=== PATIENT | female | born 1965 | race Caucasian/White ===

== ENCOUNTER 2023-03-12 07:47 | Outpatient (OUT) | payer OTHER, SELFPAY ==
--- NOTE | 2023-03-12 08:06 | XR_ITS ---
The [address] [address] Patient Name: AMERICA PIKE MRN: [id number] date: 1965 Sex: F Assigned Patient Location: RAD Current Patient Location: [facility] Accession/Order Number: [id number] Exam Date: 03/12/2023 08:15 Report Date: 03/12/2023 08:40 At the request of: NON-STAFF PHYSICIAN Procedure: XR DEXA axial skeleton EXAMINATION: XR DEXA axial skeleton HISTORY: Post Menopausal Z78.0 COMPARISON: No relevant comparison available. TECHNIQUE: Dual-energy X-ray absorptiometry (DXA) was performed. FINDINGS: SPINE ANALYSIS: Average bone mineral density is 0.915 g/cm2. T-score (standard deviation relative to young adult mean): -2.2 . HIP ANALYSIS: Lowest bone mineral density is within the left femoral neck, 0.735 g/cm2. T-score (standard deviation relative to young adult mean): -2.2 . XR/XR DEXA axial skeleton IMPRESSION: [employer] Classification: Osteopenia - Moderate Fracture Risk Electronically authenticated by: ISAI HUSSEIN Date: 03/12/2023 08:40
--- OUTSIDE RECORDS SUMMARY | 2023-04-17 17:37 | XMS_ITS | CCD ---
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 Name Role Phone UNKNOWN, PROVIDER Attending Unavailable UNKNOWN, PROVIDER Admitting Unavailable HOUSE, DRE Referring Unavailable HOUSE, DRE Primary Care Unavailable UNKNOWN, PROVIDER Attending Unavailable UNKNOWN, PROVIDER Admitting Unavailable SELF, REFERRED Referring Unavailable SELF, REFERRED Primary Care Unavailable House Sr., Dre Fernandes Primary Care Provider MOUKARBEL, DR HAIR Attending Unavailable HOUSE, DR ERICKSON Primary Care Unavailable MOUKARBEL, DR HAIR Admitting Unavailable HOUSE, DR ERICKSON Admitting Unavailable HOUSE, DR ERICKSON Primary Care Unavailable HOUSE, DR ERICKSON Consulting Unavailable HOUSE, DR ERICKSON Attending Unavailable MOUKARBEL, DR HAIR Attending Unavailable HOUSE, DR ERICKSON Primary Care Unavailable MOUKARBEL, DR HAIR Admitting Unavailable HOUSE, DR ERICKSON Primary Care Unavailable MOUKARBEL, DR HAIR Admitting Unavailable MOUKARBEL, DR HAIR Attending Unavailable House, DO Erickson Primary Care Provider House, DO Erickson Referring Provider Self, Referral Attending Provider Unavailable House, Dre Referring Unavailable House, Dre Primary Care Unavailable Self, Referral Attending Unavailable Self, Referral Admitting Unavailable TRAMAINEJOSE Abernathy Attending Unavailable Allergies Allergy Classification Reported Allergen(s) Allergy Type Date of Onset Reaction(s) Facility (1 source) Iodine (And Iodine Containting Drugs) Drug allergy (disorder) 12-08-2020 [facility] Repository (1 source) Iodine Drug Allergy 08-04-2019 Anaphylaxis [facility] (1 source) Iodine Drug Allergy [facility] Repository Medications Current Medications Medication Drug Class(es) Dates Sig (Normalized) Sig (Original) iv contrast (will be provided with radiology test) (1 source) Start: 09-07-2021 End: 09-08-2021 inject 1 dose intravenously once iv contrast (will be provided with radiology test) MRI Brain Inject, intravenously, once for 1 dose.No IV access, insert saline lock prior to beginning of sedation, infusion, injection of imaging exam.Discontinue saline lock post exam. If Pt. has a central line or IVAD, may access for administration according to line specific nursing protocol.Once exam is complete flush line and de-access according to line specific nursing protocol in the MR contrast administration guidelines link 1 Each 0 09/07/2021 09/08/2021 Active Comment on above: MRI Brain Inject, in travenously, once for 1 dose.No IV access, insert saline lock prior to beginning of sedation, infusion, injection of imaging exam.Discontinue saline lock post exam. If Pt. has a central line or IVAD, may access for administration according to line specific nursing protocol.Once exam is complete flush line and de-access according to line specific nursing protocol in the MR contrast administration guidelines link Completed/Discontinued Medications Medication Drug Class(es) Dates Sig (Normalized) Sig (Original) diclofenac sodium 75 mg delayed release oral tablet (1 source) Nonsteroidal Anti-inflammatory Drug Start: 01-23-2020 take 1 tablet by mouth once daily diclofenac, EC, (VOLTAREN) 75 mg EC tablet Take 75 mg by mouth once daily. 0 01/23/2020 Active Comment on above: Take 75 mg by mouth once daily. Multivitamin capsule (1 source) take 1 capsule by mo ut once daily Multivitamin capsule Take 1 capsule by mouth once daily. 0 Active Comment on above: Take [address] [facility] once daily. terbinafine 250 mg oral tablet (1 source) Allylamine Antifungal Start: 11-28-2019 take 1 tablet by mouth once daily terbinafine HCl (LAMISIL) 250 mg tablet Take 250 mg by mouth once daily. 0 11/28/2019 Active Comment on above: Take 250 mg by mouth once daily. Problems Active Problems Problem Classification Problem Date Documented Date Episodic/Chronic Cardiac dysrhythmias (2 sources) Palpitations; Translations: [Palpitations] Onset: 01-17-2023 Episodic Coronary atherosclerosis and other heart disease (4 sources) Atherosclerotic heart disease of [place] coronary artery without angina pectoris; Translations: [Coronary atherosclerosis due to lipid rich plaque] Onset: 01-16-2023 Chronic Other aftercare (1 source) Other penitentiary (current) drug therapy; Translations: [OTH SNF CURRENT DRUG THERAPY] Onset: 02-26-2022 Episodic Other and unspecified benign neoplasm (1 source) Benign neoplasm of brain; Translations: [Benign neoplasm of brain, unspecified] Chronic Other and unspecified benign neoplasm (1 source) Neoplasm of meninges; Translations: [Benign neoplasm of meninges, unspecified] Onset: 08-04-2019 10-03-2019 Chronic Other injuries and conditions due to external causes (4 sources) Angioneurotic edema, initial encounter; Translations: [ANGIONEUROTIC EDEMA INITIAL ENCNTR] Onset: 02-24-2022 Episodic Unclassified (1 source) Encounter for screening mammogram for malignant neoplasm of breast; Translations: [Encounter for screening mammogram for malignant neoplasm of breast] Onset: 04-10-2022 Past or Other Problems Problem Classification Problem Date Documented Da te Episodic/Chronic Conditions associated with dizziness or vertigo (1 source) Dysfunction of left vestibular system; Translations: [Labyrinthine dysfunction, left ear] Onset: 11-18-2019 11-18-2019 Episodic Results Test Name Value Interpretation Reference Range Facil ity Office Visiton 01-17-2023 Follow-up visit [id number] Leonora Pike 1965 F Date Provider Department Center 01/17/2023 [facility] No family history on file Level of Service:73214 [place] OFFICE/OUTPATIENT ESTABLISHED LOW MDM 20-29 MIN Reason for Visit and Comments: Follow-up [057569] - Yearly Normal [facility] MM screening mammo BI w/CADo n 04-10-2022 MM screening mammo BI w/CAD [facility] [place] [address] Mammography Report Signed Patient: Leonora Pike MR#: [id number] 5 : 1965 Acct:[id number] Age/Sex: 56 / F ADM Date: 04/10/22 Loc: [place] Room: Type: [facility] Attending Dr: Referral Self Copies to: Dre Vogel DO SELF,REFERRAL Ordering Provider: SELF,REFERRAL Date of Service: 04/10/22 MM/MM screening mammo BI w/CAD: SCREENING CLINICAL DATA: Screening for malignancy. SCREENING MAMMOGRAM - FULL FIELD DIGITAL WITH TOMOSYNTHESIS AND CAD COMPARISON:Mammograms dating back to 2013 Tomosynthesis craniocaudal and mediolateral oblique views of both breasts were obtained using low- dose digital technique. This examination was reviewed with the aid of CAD. The breast tissue is composed of scattered fibroglandular densities. There are no dominant masses, typically malignant calcifications or architectural distortion. There has been no significant interval change. MM/MM screening mammo BI w/CAD IMPRESSION: NO MAMMOGRAPHIC EVIDENCE OF MALIGNANCY. ROUTINE FOLLOW-UP IS RECOMMENDED IN ONE YEAR. RESULT CODE: 1 Negative DENSITY CODE: 2 (approximately 25-50% glandular) FOLLOW UP: 1YR The false-negative rate of mammography is approximately 10-percent. Management of a palpable abnormality must be based on clinical grounds. Patient was entered into a reminder system with a target due date for the next mammogram. Impression dictated by: Enrique Ordonez Jr., D.O.04/10/2022 10:18 AM Dictation Location: [facility] Transcribed By: [facility] 04/10/22 1018 Dictated By: Enrique Ordonez Jr, DO 04/10/22 1017 Signed By: 04/10/22 1018 Normal [facility] CBC AUTO DIFFon 02-24-2022 BASO # 0.1 103/ul Normal 0.0-0.1 [facility] ostal Comment on above: Performed By: #### C BC #### [facility] [address] [place] [address] Dr. Sherley Dubois Basophils/100 WBC (Bld) 0.9 % Normal 0.2-2.0 [facility] Comment on above: Performed By: #### C BC #### [facility] [address] [address] [address] Sherley Dubois EO # 0.3 103/ul Normal 0.0-0.7 [facility] Comment on above: Performed By: #### C BC #### [facility] [address] [place] [address] Dr. Sherley Dubois Eosinophils/100 WBC (Bld) 5.0 % Normal 0.9-7.0 [facility] Comment on above: Performed By: #### C BC #### [facility] [address] [place] [address] Dr. Sherley Dubois Erythrocyte distribution wid th (RBC) [Ratio] 12.0 % Normal 11.0-15.0 [facility] Comment on above: Performed By: #### C BC #### [facility] [address] [place] [address] Dr. Sherley Dubois Hematocrit (Bld) [Volume fraction] 43.6 % Normal 3 6.0-48.0 [facility] Comment on above: Performed By: #### C BC #### [facility] [address] [place] [address] Dr. Sherley Dubois Hemoglobin (Bld) [Mass/Vol] 14.6 g/dL Normal 12.0-16. 0 [facility] Comment on above: Performed By: #### C BC #### [facility] [address] [place] [address] Dr. Sherley Dubois IG # 0.01 10e3/ul Normal 0.00-0.03 [facility] Comment on above: Performed By: #### C BC #### [facility] [address] [place] [address] Dr. Sherley Dubois IG % 0.2 % Normal 0.0-0.5 [facility] Comment on above: Performed By: #### C BC #### [facility] [address] [place] [address] Dr. Sherley Dubois LYMPH # 1.9 103/ul Normal 1.2-3.8 [facility] Comment on above: Performed By: #### C BC #### [facility] [address] [place] [address] Dr. Sherley Dubois Lymphocytes/100 WBC (Bld) 34.2 % Normal 20.5-60.0 [facility] Comment on above: Performed By: #### C BC #### [facility] [address] [place] [address] Dr. Sherley Dubois MANUAL DIFF REQ NO Normal [facility] Comment on above: Performed By: #### C BC #### [facility] [address] [address] [address] Sherley Dubois MCH (RBC) [Entitic mass] 30.9 pg Normal 26.7-34.0 [facility] Comment on above: Performed By: #### C BC #### [facility] [address] [place] [address] Dr. Sherley Dubois MCHC (RBC) [Mass/Vol] 33.5 g/dL Normal 29.9-35.2 [facility] Comment on above: Performed By: #### C BC #### [facility] [address] [place] [address] Dr. Sherley Dubois MCV (RBC) [Entitic vol] 92.4 fL Normal 81.0-99.0 [facility] Comment on above: Performed By: #### C BC #### [facility] [address] [place] [address] Dr. Sherley Dubois MONO # 0.6 103/ul Normal 0.3-0.8 [facility] Comment on above: Performed By: #### C BC #### [facility] [address] [place] [address] Dr. Sherley Dubois Monocytes/100 WBC (Bld) 10.1 % Normal 1.7-12.0 [facility] Comment on above: Performed By: #### C BC #### [facility] [address] [place] [address] Dr. Sherley Dubois NEUT # 2.8 103/ul Normal 1.4-6.5 [facility] Comment on above: Performed By: #### C BC #### [facility] [address] [place] [address] Dr. Sherley Dubois Neutrophils/100 WBC (Bld) 49.6 % Normal 43.0-75.0 [facility] Comment on above: Performed By: #### C BC #### [facility] [address] [place] [address] Dr. Sherley Dubois Platelet mean volume (Bld) [Entitic vol] 9.4 fL Critically low 9.5-13.5 [facility] pital Comment on above: Performed By: #### C BC #### [facility] [address] [address] [address] Sherley Dubois PLT 214 103/ul Normal 150-450 [facility] Comment on above: Performed By: #### C BC #### [facility] [address] [address] [address] Sherley Dubois RBC 4.72 106/ul Normal 4.20-5.40 [facility] Comment on above: Performed By: #### C BC #### [facility] [address] [place] [address] Dr. Sherley Dubois WBC 5.6 103/ul Normal 4.0-11.0 [facility] Comment on above: Performed By: #### C BC #### [facility] [address] [place] [address] Dr. Sherley Dubois LIPID PROFILEon 02-24-2022 CHOL-HDL RATIO NORM SEE BELOW Normal [facility] Comment on above: Result Comment: 3.3 - 4.4 LOW RISK 4.4 - 7.1 AVERAGE RISK 7.1 - 11.0 MODERATE RISK >11.0 HIGH RISK Performed By: #### T 4, LIPID, TSH, CMP #### [facility] [address] [place] [address] Dr. Sherley Dubois Cholesterol [Mass/Vol] 137 mg/dL Normal <=[address] [facility] Comment on above: Performed By: #### T 4, LIPID, TSH, CMP #### [facility] [address] [place] [address] Dr. Sherley Dubois Cholesterol in HDL [Mass/Vol] 44 mg/dL Normal 40-60 [facility] Comment on above: Performed By: #### T 4, LIPID, TSH, CMP #### [facility] [address] [place] [address] Dr. Sherley Dubois Cholesterol in LDL [Mass/Vol] 73.6 mg/dL Normal [facility] Comment on above: Performed By: #### T 4, LIPID, TSH, CMP #### [facility] [address] [place] [address] Dr. Sherley Dubois Cholesterol.total/Cholestero l in HDL [Mass ratio] 3.1 {ratio} Normal [facility] Comment on above: Performed By: #### T 4, LIPID, TSH, CMP #### [facility] [address] [place] [address] Dr. Sherley Dubois HDL NORMAL > or = 60 mg/dl - LO W CARDIOVASCULAR RISK <40 mg/dl - HIGH CARDIOVASCULAR RISK Normal [facility] Comment on above: Performed By: #### T 4, LIPID, TSH, CMP #### [facility] [address] [place] [address] Dr. Sherley Dubois LDL CALC NORMAL SEE BELOW Normal [facility] Comment on above: Result Comment: <100 mg/dl OPTIMAL 100 - 129 mg/dl NEAR OR ABOVE OPTIMAL 130 - 159 mg/dl BORDERLINE HIGH 160 - 189 mg/dl HIGH >190 mg/dl VERY HIGH Performed By: #### T 4, LIPID, TSH, CMP #### [facility] [address] [place] [address] Dr. Sherley Dubois Triglyceride [Mass/Vol] 97 mg/dL Normal <=150 [facility] Comment on above: Performed By: #### T 4, LIPID, TSH, CMP #### [facility] [address] [place] [address] Dr. Sherley Dubois VLDL CALC 19.4 mg/dL Normal [facility] Comment on above: Performed By: #### T 4, LIPID, TSH, CMP #### [facility] [address] [place] [address] Dr. Sherley Dubois PROF 14(COMP METB)on 022 Albumin [Mass/Vol] 3.9 g/dL Normal 3.4-5.0 [facility] Comment on above: Performed By: #### T 4, LIPID, TSH, CMP #### [facility] [address] [place] [address] Dr. Sherley Dubois Albumin/Globulin [Mass ratio] 1.3 {ratio} Normal [facility] Comment on above: Performed By: #### T 4, LIPID, TSH, CMP #### [facility] [address] [address] [address] Sherley Dubois ALP [Catalytic activity/Vol] 95 U/L Normal 46-116 [facility] Comment on above: Performed By: #### T 4, LIPID, TSH, CMP #### [facility] [address] [address] [address] Sherley Dubois ALT [Catalytic activity/Vol] 37 U/L Normal 14-59 [facility] Comment on above: Performed By: #### T 4, LIPID, TSH, CMP #### [facility] [address] [address] [address] Sherley Dubois Anion gap [Moles/Vol] 9.7 mmol/L Normal [facility] Comment on above: Performed By: #### T 4, LIPID, TSH, CMP #### [facility] [address] [place] [address] Dr. Sherley Dubois AST [Catalytic activity/Vol] 16 U/L Normal 15-37 [facility] Comment on above: Performed By: #### T 4, LIPID, TSH, CMP #### [facility] [address] [address] [address] Sherley Dubois Bilirubin [Mass/Vol] 0.4 mg/dL Normal 0.2-1.0 [facility] Comment on above: Performed By: #### T 4, LIPID, TSH, CMP #### [facility] [address] [place] [address] Dr. Sherley Dubois Calcium [Mass/Vol] 9.1 mg/dL Normal 8.5-10.1 [facility] Comment on above: Performed By: #### T 4, LIPID, TSH, CMP #### [facility] [address] [place] [address] Dr. Sherley Dubois Chloride [Moles/Vol] 108 mmol/L Critically high 98-107 [facility] Comment on above: Performed By: #### T 4, LIPID, TSH, CMP #### [facility] [address] [place] [address] Dr. Sherley Dubois CO2 [Moles/Vol] 29.2 mmol/L Normal 21.0-32.0 [facility] Comment on above: Performed By: #### T 4, LIPID, TSH, CMP #### [facility] [address] [address] [address] Sherley Dubois Creatinine [Mass/Vol] 0.65 mg/dL Normal 0.55-1.02 [facility] Comment on above: Performed By: #### T 4, LIPID, TSH, CMP #### [facility] [address] [address] [address] Sherley Dubois EGFR-AF MACEDONIAN >60 Normal >=60 [facility] Comment on above: Performed By: #### T 4, LIPID, TSH, CMP #### [facility] [address] [place] [address] Dr. Sherley Dubois EGFR-NON AF MACEDONIAN >60 Normal >=60 [facility] Comment on above: Performed By: #### T 4, LIPID, TSH, CMP #### [facility] [address] [place] [address] Dr. Sherley Dubois Globulin (S) [Mass/Vol] 3.1 g/dL Normal [facility] Comment on above: Performed By: #### T 4, LIPID, TSH, CMP #### [facility] [address] [place] [address] Dr. Sherley Dubois Glucose [Mass/Vol] 92 mg/dL Normal 74-106 [facility] Comment on above: Performed By: #### T 4, LIPID, TSH, CMP #### [facility] [address] [place] [address] Dr. Sherley Dubois Potassium [Moles/Vol] 3.9 mmol/L Normal 3.5-5.1 [facility] Comment on above: Performed By: #### T 4, LIPID, TSH, CMP #### [facility] [address] [place] [address] Dr. Sherley Dubois Protein [Mass/Vol] 7.0 g/dL Normal 6.4-8.2 [facility] Comment on above: Performed By: #### T 4, LIPID, TSH, CMP #### [facility] [address] [place] [address] Dr. Sherley Dubois Sodium [Moles/Vol] 143 mmol/L Normal 136-145 [facility] Comment on above: Performed By: #### T 4, LIPID, TSH, CMP #### [facility] [address] [address] [address] Sherley Dubois Urea nitrogen [Mass/Vol] 12.0 mg/dL Normal 7.0-18.0 [facility] Comment on above: Performed By: #### T 4, LIPID, TSH, CMP #### [facility] [address] [place] [address] Dr. Sherley Dubois Urea nitrogen/Creatinine [Mass ratio] 18.5 mg/mg Normal [facility] Comment on above: Performed By: #### T 4, LIPID, TSH, CMP #### [facility] [address] [place] [address] Dr. Sherley Dubois T4on 02-24-2022 T4 [Mass/Vol] 6.50 ug/dL Normal 4.80-13.90 [facility] Comment on above: Performed By: #### T 4, LIPID, TSH, CMP #### [facility] [address] [place] [address] Dr. Sherley Dubois TSHon 02-24-2022 TSH 3.491 uIU/mL Normal 0.358-3.740 [facility] Comment on above: Performed By: #### T 4, LIPID, TSH, CMP #### [facility] [address] [place] [address] Dr. 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 This information is taken directly from the reproduction order processor system. s/p Left retrosigmoid approach for resection. (Bailey Grade 2) on 10/02/[address] Nkechi Goss. Final path: Meningioma, WHO grade 1. Follow-up TECHNIQUE: Routine brain MRI protocol without and with contrast including diffusion and gradient echo images. MQ: [id number] Contrast: 18 mL Dotarem IV COMPARISON: Previous MRI of the brain 09/07/2020. RESULT: Acute Change: There is no evidence of restricted diffusion to suggest an acute infarct. Hemorrhage: No evidence for acute blood on this exam. Scattered old microhemorrhages in the cerebellum bilaterally visible on SWI. Mass Lesion/ Mass Effect: Stable findings of remote left-sided meningioma resection.. [place] extra-axial fluid present along lateral margins of both cerebellar hemispheres. No abnormal enhancement to suggest recurrence of meningioma. Remote suboccipital craniotomy. Stable small area of encephalomalacia in the cerebellar vermis extending to the medial bilateral cerebellar hemispheres with adjacent T2/FLAIR hyperintensity, likely gliosis. Chronic Change: Scattered patchy areas of increased T2 and FLAIR signal are present in the supratentorial white matter which is a nonspecific finding but likely represents mild chronic microvascular ischemia. Fairly extensive gliosis in the left cerebellum, unchanged from prior study. Parenchyma: There is mild generalized hemispheric brain volume loss. Substantial volume loss left cerebellum, moderate on the right. Ventricles: Ventriculomegaly corresponds to the degree of parenchymal volume loss. Skull Base: Hypothalamic and pituitary region are grossly normal. Craniocervical junction is normal. No significant marrow replacement process. Vasculature: Major intracranial arterial structures, and dural venous sinuses show typical flow void, suggesting patency by spin echo criteria. Visible enhancement of major cortical draining veins, deep venous structures, and dural venous sinuses. Right transverse sinus is dominant. There is a stable appearing dominant left-sided vein of Valentín. Other: Trace left mastoid effusion. No particular significance. Trace mucosal thickening in the ethmoid air cells. Paranasal sinus chambers are otherwise grossly clear.. The orbits and extracranial soft tissues are unremarkable. IMPRESSION: Status post gross total resection of left posterior fossa meningioma. No gross evidence for recurrence. Substantial gliosis in the left cerebellar hemisphere. No acute brain findings. Based on the axial T2 flow void pattern, proximal intracranial arterial vasculature, major cortical draining veins, and dural venous sinuses are patent. Concordant findings on the post gadolinium scans. Bsa Officer: WENDY Transcribe Date/Time: Sep 05 2021 11:17A Dictated by : TRAN GARCIA MD This examination was interpreted and the report reviewed and electronically signed by: TRAN GARCIA MD on Sep 05 2021 11:27AM EST [id number] Normal [facility] LEONORA PIKE ([id number]) 1965 F Date Time Provider Department 05/25/[address] [facility] During your visit today, we recorded the following information about you: Amanda Tucker Adm 05/25/2021 12:02 PM Signed General Call Caller : Leonora Contact Reason for Call : Called to discuss balance issues she been experiencing since yesterday. Patient requesting return call ? Yes Denise Sanders APRN.CNP 05/25/2021 12:29 PM Signed Per the patient when she bends over she is out of wack . When she turns her head feels increase imbalance and dizziness. Patient previously saw Dr. Hirsch. Recommend patient call his office to discuss symptoms. Denise Sanders APRN.[employer] Allergies As of Date: 05/25/2021 Noted Allergy Reaction IODINE 08/04/2019 10 - Anaphylaxis Comments: remembers that she was taken to the recovery room - she was just 13 years of age at the time Date Reviewed: 09/07/2020 Reviewed by: Chele Sanchez music producer - Fully Assessed Reason for Visit: Patient Question [1912] Prescriptions as of 05/25/2021 - diclofenac, EC, (VOLTAREN) 75 mg EC tablet Take 75 mg by mouth once daily. - Multivitamin capsule Take 1 capsule by mouth once daily. - terbinafine HCl (LAMISIL) 250 mg tablet Take 250 mg by mouth once daily. Problem List As Of Date 05/25/2021 Noted Resolved Meningioma (HCC) [D32.9] 08/04/2019 Compression of brain (HCC) [G93.5] 08/04/2019 11/18/2019 Cerebellar edema (HCC) [G93.6] 08/04/2019 11/18/2019 Vestibular dysfunction of left ear [H83.2X2] 11/18/2019 Encounter Status:Closed by DENISE SANDERS on 05/25/21 Normal [facility] Cardiovascular Lab Reporton 12-08-2020 Cardiovascular Lab Report [facility] Patient Name: Leonora Pike MR #: [id number] [facility] Physician: Reginaldo Thrasher M.D. Department of Service Date: 12/08/2020 Medicine Birthdate: 1965 Division of Room #: Cardiology Adult Cardiovascular Services [facility] [address] [facility] [address] [place] [address] Cardiovascular Laboratory Report INDICATION: The patient is a 55-year-old woman, who was evaluated in Cardiology Clinic because of chest pain on exertion and abnormal stress test. She was referred for a cardiac catheterization. She has severe hypercholesterolemia with an LDL level of 193. PROCEDURE: Bilateral selective coronary angiography from the right radial access. METHODS: Procedure was explained to the patient with risks and benefits. She signed informed consent. She was brought to mobile lab technician in a fasting state. The right wrist area was prepped and draped in usual fashion. Micropuncture technique was used to gain access in the right radial artery and a 6-Honduran x 11 cm Hydrophilic sheath was advanced. Verapamil was given through the sheath and heparin was administered intravenously. Bilateral selective coronary angiography was then performed using 6-Honduran JL3.5 and JR5 diagnostic catheters. Catheters were removed. Procedure was concluded. The patient tolerated the procedure well. A TR band was used for hemostasis in the right radial artery. She was transferred to the cardiovascular recovery area. She will be observed for few hours and then discharged to home. TOTAL FLUORO TIME: 5.3 minutes. TOTAL AIR KERMA: 446 mGy. TOTAL CONTRAST VOLUME: 25 mL. TOTAL SEDATION TIME: 27 minutes. HEMODYNAMICS: AO 84/56, mean 70. CORONARY ANGIOGRAPHY: This is a right dominant circulation. Left main: This arises from left coronary cusp. It bifurcates into left anterior descending and circumflex vessels. The left main is free of disease. Left anterior descending: This is angiographically free of disease. Very sluggish flow is noted throughout the course of the LAD. Circumflex vessel: This is a nondominant vessel. It has no significant angiographic disease. Sluggish flow was noted. Right coronary artery: This arises from the right coronary cusp. It is a large and dominant vessel. It has sluggish flow throughout its course. The midsegment has a long up to 40% atherosclerotic plaque disease, but no occlusive lesions. SUMMARY OF THE FINDINGS: 1. 40% stenosis in the mid RCA. 2. Sluggish flow throughout the coronary arterial tree. 3. No significant angiographic disease in the left coronary artery system other than sluggish flow. RECOMMENDATIONS: 1. Continue aspirin and statin therapy for life. 2. Maximum control of risk factors. 3. The patient will be referred for cardiac rehab. 4. Follow up in Cardiology Clinic. Electronically Signed by: Reginaldo Thrasher M.D. 12/12/2020 10:18 A Reginaldo Thrasher M.D. Date Dict: 12/08/2020/11:11 A/Reginaldo Thrasher M.D. Date Trans: 12/08/2020 11:25 Jostin/diamante [id number] cc: Dre Vogel D.O. [address] [facility] [address] [place] [facility] Encounters Encounter Date Encounter Type Care Provider Facility Start: 01-17-2023 End: 01-17-2023 ambulatory JOSE REDD [facility] Start: 04-10-2022 End: 04-10-2022 ambulatory Dre Vogel Facility:[facility] Start: 04-10-2022 End: 04-10-2022 ambulatory DO Dre Vogel Work Phone: [facility] Work Phone: Start: 04-10-2022 End: 04-10-2022 Patient encounter procedure DO Dre Vogel Work Phone: [facility] Start: 02-24-2022 End: 02-25-[address] DRE VOGEL Facility:[facility] Start: 09-07-2021 End: 09-07-2021 ambulatory Denise Sanders APRN.CNP Work Phone: [facility] Comment on above: Benign neoplasm of b rain, unspecified brain region (HCC) Start: 09-07-2021 End: 09-07-2021 Telemedicine consultation with patient Denise Scanlonalex DAVIES Work Phone: [facility] Start: 08-19-[address] DRE VOGEL Facili ty:[facility] Start: 04-30-[address] REGINALDO THRASHER Fac ility:[facility] Start: 03-30-[address] REGINALDO THRASHER Fac ility:[facility] Start: 12-08-2020 End: 12-09-2020 ambulatory PROVIDER UNKNOWN Facility:[facility] Start: 11-25-2020 End: 12-23-2020 ambulatory PROVIDER UNKNOWN Facility:[facility] Procedures Date Procedure Procedure Detail Performing Clinician Start: 04-10-2022 Screening mammograph y of bilateral breasts DO Dre Vogel Work Phone: Start: 03-20-2020 Adult depression scr eening assessment Denise Sanders APRN.CNP Work Phone: Plan of Treatment Date Care Activity Detail Author Start: 09-30-2022 DIABETES SCREEN DIABETES SCREEN [facility] Start: 07-08-2021 COVID-19 VACCINE (4 - Booster for Pfizer series) COVID-19 VACCINE (4 - Booster for Pfizer series) [facility] Start: 03-20-2021 Adult depression screening assessment DEPRESSION SCREENING [facility] Start: 2014 SHINGRIX VACCINE (1 of 2) SHINGRIX VACCINE (1 of 2) [facility] Start: 2009 COLOGUARD (FIT-DNA) COLOGUARD (FIT-DNA) [facility] Start: 2009 Colonoscopy COLONOSCOPY [facility] Start: 2009 COLORECTAL CANCER SCREENING COLORECTAL CANCER SCREENING [facility] Start: [address] COLONOGRAPHY [facility] Start: 2009 FECAL OCCULT BLOOD FECAL OCCULT BLOOD [facility] Start: 2009 LIPID SCREEN LIPID SCREEN [facility] Start: 2009 SIGMOIDOSCOPY SIGMOIDOSCOPY [facility] Start: 2004 Mammography MAMMOGRAM [facility] Start: 1994 HPV TESTING HPV TESTING [facility] Start: 1985 PAP TESTING PAP TESTING [facility] Start: 09-25-1983 Urine microalbumin profile DTAP,TDAP,TD (1 - Tdap) [facility] Start: 1982 HEPATITIS C SCREENING HEPATITIS C SCREENING [facility] Start: 1982 HIV SCREENING HIV SCREENING [facility] End: 10-07-2022 Mri brain brain stem w/o w/contrast material MRI BRAIN WO/W IVCON Radiology Routine Benign neoplasm of brain, unspecified brain region (HCC) 1 Occurrences starting 09/07/2021 until 10/07/2022 [facility] Work Phone: Comment on above: 1 Occurrences starti ng 09/07/2021 until 10/07/2022 Payers Date Payer Category Payer Unknown [employer] BLUE CARD PPO OOS [id number] 2019-Present [phone] [address] [place] [address] PPO [id number] 1965 Unknown [id number] 1965 Unknown [id number] 1965 Unknown [id number] 1965 Unknown [id number] 1965 Unknown [id number] 1965 Unknown [id number] 1960 Self-pay 1960 Unknown [id number] 1960 Unknown [id number] Unknown [id number] Social History Date Type Detail Facility Start: 10-16-2019 Tobacco smoking stat us AKIS Ex-smoker [facility] Work Phone: End: 10-01-2019 History of tobacco use Current smoker [facility] Work Phone: End: 10-01-2019 History of tobacco use Cigarette Smoker [facility] Work Phone: Start: 10-16-2019 Cigarettes smoked current (pack per day) - Reported 0.5 [facility] Start: 10-16-2019 Tobacco use and exposure Smokeless tobacco non-user [facility] Work Phone: Start: 09-09-2019 History SDOH Alcohol Comment Rare [facility] Start: 10-03-2019 History SDOH Financial 5 [facility] Start: 10-03-2019 History SDOH Food Worry 1 [facility] Start: 10-03-2019 History SDOH Transpo rt Med 2 [facility] Start: 1965 Sex Assigned At Not on file [facility] Start: 08-26-2021 End: 09-05-2021 Exposure to SARS-CoV-2 (event) Not sure [facility] Start: 1965 Sex Assigned At Female F [facility] Medical Equipment Procedure Code Equipment Code Equipment Original Text Equipment Identifier Dates Graft Duragen Pl us Bovine Collagen Matrix 2x2in Soft Tissue Patch - [id number] Start: 10-02-2019 Plate [place] [facility] Iii 42mm Small Round .3mm Bone Closed Outer Frame - [id number] Start: 10-02-2019 Screw 1.5mm 4mm Bone Self Drill [place] Craniomaxillofacial - [id number] Start: 10-02-2019 Progress note 01-17-2023 Note Date & Type Note Facility 01-17-2023 Note Continue soila Reviewed labs from 01/2022 and liver function was normal Lipid levels were well controlled, States she will be having annual labs soon for work [facility] Progress note 01-17-2023 Note Date & Type Note Facility 01-17-2023 Note Coronary artery dise ase is stable without concerning symptoms Continue GDMT- ASA, toprol, crestor, imdur continue risk factor modifications- heart healthy diet, regular exercise as tolerated and continue all medications. [facility] Progress note 01-17-2023 Note Date & Type Note Facility 01-17-2023 Note [facility] CARDI[facility]Y PROGR ESS NOTE HPI: Leonora Pike is a 57 y.o. female here for routine annual for mild coronary artery disease, mixed hyperlipidemia, former smoker and positive family history for CAD. HPI Routine f/U for coronary artery disease by cardiac catheterization performed on 12/08/2020 due to chest pain and abnormal stress test. This showed mild to moderate disease in the right coronary artery with sluggish flow in the coronary territory. Overall states she is doing well, denied any activity limiting symptoms. Denied chest pain, shortness of breath, orthopnea, or palpitations Review of Systems Constitutional: Negative. Respiratory: Negative. Cardiovascular: Negative. Neurological: Negative. All other systems reviewed and are negative. Visit Vitals BP 110/74 (BP Location: Right arm, Patient Position: Sitting) Pulse 77 Wt 94.2 kg (207 lb 9.6 oz) SpO2 91% BMI 33.51 kg/m??? Smoking Status Former BSA 2.09 m??? No Known Allergies Medications: Current Outpatient Medications on File Prior to Visit Medication Sig Dispense Refill diclofenac (Voltaren) 75 mg EC tablet Take 75 mg by mouth in the morning. hydroxychloroquine (Plaquenil) 200 mg tablet hydroxychloroquine 200 mg tablet TAKE 1 TABLET BY MOUTH EVERY DAY [DISCONTINUED] aspirin 81 mg EC tablet aspirin 81 mg tablet,delayed release TAKE 1 TABLET BY MOUTH EVERY DAY 30 tablet 0 [DISCONTINUED] isosorbide mononitrate ER (Imdur) 30 mg 24 hr tablet Take 1 tablet (30 mg) by mouth in the morning. 30 tablet 0 [DISCONTINUED] metoprolol succinate XL (Toprol-XL) 25 mg 24 hr tablet metoprolol succinate ER 25 mg tablet,extended release 24 hr TAKE 1 TABLET BY MOUTH EVERY DAY 30 tablet 0 [DISCONTINUED] rosuvastatin (Crestor) 40 mg tablet rosuvastatin 40 mg tablet TAKE 1 TABLET BY MOUTH EVERY DAY 30 tablet 0 [DISCONTINUED] aspirin 81 mg EC tablet aspirin 81 mg tablet,delayed release TAKE 1 TABLET BY MOUTH EVERY DAY 30 tablet 0 [DISCONTINUED] isosorbide mononitrate ER (Imdur) 30 mg 24 hr tablet Take 1 tablet (30 mg) by mouth in the morning. 30 tablet 0 [DISCONTINUED] metoprolol succinate XL (Toprol-XL) 25 mg 24 hr tablet metoprolol succinate ER 25 mg tablet,extended release 24 hr TAKE 1 TABLET BY MOUTH EVERY DAY 30 tablet 0 [DISCONTINUED] rosuvastatin (Crestor) 40 mg tablet rosuvastatin 40 mg tablet TAKE 1 TABLET BY MOUTH EVERY DAY 30 tablet 0 No current facility-administered medications on file prior to visit. Physical Exam: Constitutional: Appearance: Normal appearance. Without apparent distress HENT: Head: Normocephalic and atraumatic. Nose: Nose normal. Mouth/Throat: Mouth: Mucous membranes are moist. Eyes: Extraocular Movements: Extraocular movements intact. Conjunctiva/sclera: Conjunctivae normal. Neck: Vascular: No JVD. Cardiovascular: Rate and Rhythm: Normal rate and regular rhythm. Pulses: Dorsalis pedis pulses are 3 on the right side and 3on the left side. Posterior tibial pulses are 3 on the right side and 3 on the left side. Heart sounds: Normal heart sounds, S1 normal and S2 normal. Pulmonary: Effort: Pulmonary effort is normal. Breath sounds: Normal breath sounds. Abdominal: General: Bowel sounds are normal. Palpations: Abdomen is soft. Musculoskeletal: General: Normal range of motion. Cervical back: Normal range of motion. Right lower leg: No edema. Left lower leg: No edema. Skin: General: Skin is warm and dry. Capillary Refill: Capillary refill takes less than 2 seconds. Neurological: General: No focal deficit present. Mental Status: She is alert and oriented to person, place, and time. Psychiatric: Mood and Affect: Mood normal. Behavior: Behavior normal. Thought Content: Thought content normal. Judgment: Judgment normal. Labs: Reviewed labs from 01/2022 CBC normal Renal function and liver function normal Lipid levels well controlled Last lab values have been reviewed CV Testing: Echocardiogram 12/22/2020: Normal ventricular function, no valvular dysfunction. Normal right-sided pressures. No pericardial effusion. Cardiac catheterization 12/08/2020: 1. 40% stenosis in the mid RCA. 2. Sluggish flow throughout the coronary arterial tree. 3. No significant angiographic disease in the left coronary artery system other than sluggish flow. ECG 06/22/2019: Sinus rhythm, nonspecific T wave abnormality. Stress test 11/17/2020: No reversible ischemia, abnormal exercise stress test. Post Lexiscan infusion patient developed T wave inversion followed by ST segment downsloping depression in all 3 inferior leads. She also developed chest tightness similar to her chief complaint. Symptoms resolved together with resolution of the EKG changes. Blood testing 02/20/2020: Hemoglobin 14.1, platelets 102, potassium 3.9, BUN 19, creatinine 0.75, LFTs within normal, cholesterol 259, HDL 37, triglycerides 147, LDL 193. No echocardiogram results found for the past 12 (more content not included)... [facility] Progress note 09-07-2021 Note Date & Type Note Facility 09-07-2021 Note HNO ID: [id number] Author: Denise Sanders APRN.[employer] Service: ? Author Type: Nurse Practitioner Type: Progress Notes Filed: 09/07/2021 11:07 AM Note Text: [facility]rological [facility] NEURO-ONCOLOGY VIRTUAL VISIT NOTE This is a virtual visit using Drywave video visit. It required patient-provider interaction for the medical decision making as documented below. 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 She was found to have a large posterior petrous mass (likely radiation induced meningioma) on MRI in workup of syncopal episode. She is s/p?Left retrosigmoid approach for resection?(Bailey Grade 2) on 10/02/[address] Goss. Final path:?Meningioma, WHO grade 1. ? INTERVAL HISTORY : 10/17/19 Presents today via VIRTUAL VISIT s/p resection 10/02/[address] Goss. Today she?states she is doing well. Her only complaint is muffled hearing on the left. She state the muffled noise is positional. She denies any headaches, change in vision, new numbness/tingling, or concerns for seizures. 12/18/19 Here today?for?evaluation of imbalance and ability to return to work. She presents unaccompanied today. She notes she started?vestibular therapy?this week and has her second appointment tomorrow. She states she has not had any improvement in overall symptoms but states she felt overall better after going to her first appointment. She states she would like to return to work at this time. Of note, she will need to be cleared by physician through [facility] before returning to work.? 03/18/20 Presents today for follow-up with new MRI brain for review. Since last visit, she continues to have dizziness induced by turning head side to side. 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 She did vestibular PT and did not have success. She is seeing an assistant in nursing for hearing loss and ENT. She received bilateral hearing aids, but does not wear them with consistency. 09/08/20 Presents today with her daughter for follow-up with new MRI brain for review. Since last visit, she denies any new neurological symptoms. She continues to have balance issues. 09/07/21 She presents today for follow up. Since she was last seen she reports feeling much better. She has lost 15 lbs intentionally. Her dizziness has improved. 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 Rafal Shay FAMILY HISTORY Problem Relation Age of Onset - other (htn) Father Current Outpatient Medications Medication Sig - diclofenac, EC, (VOLTAREN) 75 mg EC tablet Take 75 mg by mouth once daily. - Multivitamin capsule Take 1 capsule by mouth once daily. - terbinafine HCl (LAMISIL) 250 mg tablet Take 250 mg by mouth once daily. No current facility-administered medications for this visit. REVIEW OF SYSTEMS: Neurological : No complaint of headache No complaint of tinnitus + complaints of bilateral hearing loss No complaint of diplopia No complaints of blurred vision + Decreased visual acuity, wears glasses? No complaint of arm/leg numbness +?Intermittent decreased balance and coordination with dizziness/vertigo, induced by movement changes No complaint of syncope No complaints of seizures. No complaints of memory changes or disorientation. ? General : Constitutional: No recent fever or weight loss. Eyes: No history of glaucoma or cataracts ENMT: No recent ear infection, nasal congestion, mouth sores or sore throat. CV: No history of chest pain, palpitations or leg swelling Respiratory: No history of SOB, wheezing or recent cough. Gastrointestinal: No history of nausea, vomiting, dysphagia or abdominal pain. Genitourinary: No history of hematuria or dysuria. Musculoskeletal: No complaint of arthritis, unstable gait or arm/leg weakness Psychiatric: No history of hallucinations, depression, or anxiety Objective PHYSICAL EXAMINATION: VIDEO EXAM: (if completed, performed via video enabled technology) NEUROLOGICAL EXAM: Higher integrative functions: Oriented to p (more content not included)... [facility] History of Present illness Narrative 09-07-2021 Denise Sanders APRN.[employer] - 09/07/2021 11:00 AM EDT Note Date & Type Note Facility 09-07-2021 History of Presen t illness Narrative Images from the original note were not included. [facility] NEURO-ONCOLOGY VIRTUAL VISIT NOTE This is a virtual visit using Drywave video visit. It required patient-provider interaction for the medical decision making as documented below. 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 She was found to have a large posterior petrous mass (likely radiation induced meningioma) on MRI in workup of syncopal episode. She is s/p Left retrosigmoid approach for resection (Bailey Grade 2) on 10/02/[address] Goss. Final path: Meningioma, WHO grade 1. INTERVAL HISTORY : 10/17/19 Presents today via VIRTUAL VISIT s/p resection 10/02/[address] Goss. Today she states she is doing well. Her only complaint is muffled hearing on the left. She state the muffled noise is positional. She denies any headaches, change in vision, new numbness/tingling, or concerns for seizures. 12/18/19 Here today for evaluation of imbalance and ability to return to work. She presents unaccompanied today. She notes she started vestibular therapy this week and has her second appointment tomorrow. She states she has not had any improvement in overall symptoms but states she felt overall better after going to her first appointment. She states she would like to return to work at this time. Of note, she will need to be cleared by physician through [facility] before returning to work. 03/18/20 Presents today for follow-up with new MRI brain for review. Since last visit, she continues to have dizziness induced by turning head side to side. 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 She did vestibular PT and did not have success. She is seeing an assistant in nursing for hearing loss and ENT. She received bilateral hearing aids, but does not wear them with consistency. 09/08/20 Presents today with her daughter for follow-up with new MRI brain for review. Since last visit, she denies any new neurological symptoms. She continues to have balance issues. 09/07/21 She presents today for follow up. Since she was last seen she reports feeling much better. She has lost 15 lbs intentionally. Her dizziness has improved. 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 Rafal Shay FAMILY HISTORY Problem Relation Age of Onset other (htn) Father Current Outpatient Medications Medication Sig diclofenac, EC, (VOLTAREN) 75 mg EC tablet Take 75 mg by mouth once daily. Multivitamin capsule Take 1 capsule by mouth once daily. terbinafine HCl (LAMISIL) 250 mg tablet Take 250 mg by mouth once daily. No current facility-administered medications for this visit. REVIEW OF SYSTEMS: Neurological : No complaint of headache No complaint of tinnitus + complaints of bilateral hearing loss No complaint of diplopia No complaints of blurred vision + Decreased visual acuity, wears glasses No complaint of arm/leg numbness + Intermittent decreased balance and coordination with dizziness/vertigo, induced by movement changes No complaint of syncope No complaints of seizures. No complaints of memory changes or disorientation. General : Constitutional: No recent fever or weight loss. Eyes: No history of glaucoma or cataracts ENMT: No recent ear infection, nasal congestion, mouth sores or sore throat. CV: No history of chest pain, palpitations or leg swelling Respiratory: No history of SOB, wheezing or recent cough. Gastrointestinal: No history of nausea, vomiting, dysphagia or abdominal pain. Genitourinary: No history of hematuria or dysuria. Musculoskeletal: No complaint of arthritis, unstable gait or arm/leg weakness Psychiatric: No history of hallucinations, depression, or anxiety Objective PHYSICAL EXAMINATION: VIDEO EXAM: (if completed, performed via video enabled technology) NEUROLOGICAL EXAM: Higher integrative functions: Oriented to person, place & time. Memory: Good recent and remote. Attention Span and Concentration: Good. Language: Good comprehension. Fund of Knowledge: Good. IMAGING STUDIES: MRI Brain WO/W IVCON 09/05/21 MRI Report MRI BRAIN WO/W IVCON Exam End: 09/05/2021 10:40 AM (Final result) Narrative: * * *Final Report* * * DATE OF EXAM: Sep 05 2021 10:40AM [facility] 0295 - MRI BRAIN WO/W IVCON / PROCEDURE REASON: Benign neoplasm of infratentorial region of brain (HCC) * * * * Physician Interpretation * * * * EXAMINATION: MRI BRAIN WO/W IVCON HISTORY: Benign neoplasm of infratentorial region of brain (HCC). This information is taken directly from the reproduction order processor system. s/p Left retrosigmoid approach for resection. (Bailey Grade 2) on 10/02/[address] Nkechi Goss. Final path: Meningioma, WHO grade 1. Follow-up TECHNIQUE: Routine brain MRI protocol without and with contrast including diffusion and gradient echo images. MQ: [id number] Contrast: 18 mL Dotarem IV COMPARISON: Previous MRI of the brain 09/07/2020. RESULT: Acute Change: There is no evidence of restricted diffusion to suggest an acute infarct. Hemorrhage: No evidence for acute blood on this exam. Scattered old microhemorrhages in the cerebellum bilaterally visible on SWI. Mass Lesion/ Mass Effect: Stable findings of remote left-sided meningioma resection.. [place] extra-axial fluid present along lateral margins of both cerebellar hemispheres. No abnormal enhancement to suggest recurrence of meningioma. Remote suboccipital craniotomy. Stable small area of encephalomalacia in the cerebellar vermis extending to the medial bilateral cerebellar hemispheres with adjacent T2/FLAIR hyperintensity, likely gliosis. Chronic Change: Scattered patchy areas of increased T2 and FLAIR signal are present in the supratentorial white matter which is a nonspecific finding but likely represents mild chronic microvascular ischemia. Fairly extensive gliosis in the left cerebellum, unchanged from prior study. Parenchyma: There is mild generalized hemispheric brain volume loss. Substantial volume loss left cerebellum, moderate on the right. Ventricles: Ventriculomegaly corresponds to the degree of parenchymal volume loss. Skull Base: Hypothalamic and pituitary region are grossly normal. Craniocervical junction is normal. No significant marrow replacement process. Vasculature: Major intracranial arterial structures, and dural venous sinuses show typical flow void, suggesting patency by spin echo criteria. Visible enhancement of major cortical draining veins, deep venous structures, and dural venous sinuses. Right transverse sinus is dominant. There is a stable appearing dominant left-sided vein of Valentín. Other: Trace left mastoid effusion. No particular significance. Trace mucosal thickening in the ethmoid air cells. Paranasal sinus chambers are otherwise grossly clear.. The orbits and extracranial soft tissues are unremarkable. Impression: IMPRESSION: Status post gross total resection of left posterior fossa meningioma. No gross evidence for recurrence. Substantial gliosis in the left cerebellar hemisphere. No acute brain findings. Based on the axial T2 flow void pattern, proximal intracranial arterial vasculature, major cortical draining veins, and dural venous sinuses are patent. Concordant findings on the post gadolinium scans. Bsa Officer: WENDY Transcribe Date/Time: Sep 05 2021 11:17A Dictated by : TRAN GARCIA MD This examination was interpreted and the report reviewed and electronically signed by: TRAN GARCIA MD on Sep 05 2021 11:27AM EST Complete Results MEDICAL DECISION MAKING Assessment & Plan 1. 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 - All questions were answered. I spent a total of 10 minutes on the date of the service which included preparing to see the patient, [id number] patient care, completing clinical documentation, obtaining and/or reviewing separately obtained history, counseling and educating the patient/family/caregiver, ordering medications, tests, or procedures, communicating results to the patient/family/caregiver and care coordination (not separately reported). Denise Sanders APRN.CNP Certified Nurse Practitioner cc: Reynold Goss MD--EPIC documented in this encounter [facility] Progress note 09-05-2021 Note Date & Type Note Facility 09-05-2021 Note HNO ID: [id number] Author: FRANSICO Carmona Service: ? Author Type: Technologist Type: Progress Notes Filed: 09/05/2021 10:40 AM Note Text: Radiology Service Progress Note DATE OF SERVICE: September 05, 2021 TIME: 9:58 AM PATIENT IDENTITY VERIFICATION COMPLETED USING TWO (2) STANDARD IDENTIFIERS: Name and Date of confirmed by patient verbally. FALL SCREENING: Has the patient had 2 falls in the last year or 1 fall with injury or currently using an Ambulatory Assistive Device (Walker, Cane, Wheelchair, Crutches, etc.)? No PATIENT GENDER DATA: Female. status: : No status: NO. PATIENT RELEVANT IMPLANT DATA REVIEWED: Yes ALLERGIES: Reviewed and unchanged CONTRAST ALLERGY: NO. EXAM: MRI - CONTRAST TYPE: GROUP II PERIPHERAL IV DATA: Ambulatory: A peripheral IV was started in the Left antecubital site with a Angio cath: 24 gauge. RADIOLOGY DEPARTMENT: MR; Exam(s) Completed: Head: Routine Brain SIGNATURE: Daniela E Diso, CT PATIENT NAME: Leonora Pike DATE: September 05, 2021 TIME: 9:58 AM [facility] History of Past illness Narrative 08-04-2019 Note Date & Type Note Facility 08-04-2019 History of Past i llness Narrative Problem Noted Date Resolved Date Compression of brain 08/04/2019 11/18/2019 Last Assessment & Plan: Present on admission See meningioma POC Improved postop Cerebellar edema 08/04/2019 11/18/2019 Last Assessment & Plan: Present on admission Clinically significant cerebral edema treating with decadron 4bid (SSI, PPI) with penitentiary taper plan documented as of this encounter (statuses as of 09/07/2021) [facility] Evaluation note Note Date & Type Note Facility Evaluation note Diagnosis Benign neoplasm of brain, unspecified brain region (HCC) documented in this encounter [facility] Evaluation note Note Date & Type Note Facility Evaluation note No assessment information availa 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 Advance Directive(s) 10/01/2019 12:10 PM Advance Directive(s) 09/17/2019 1:41 PM Advance Directive Response Recorded Date/ Time Advance Directives No August 03 4:25pm Reason for Referral Specialty Diagnoses / Procedures Referred By Adam strong Referred To Contact MR IMAGING Diagnoses Benign neoplasm of brain, unspecified brain region (HCC) Procedures MRI BRAIN WO/W IVCON MRI BRAIN BRAIN STEM W/O W/CONTRAST MATERIAL Denise Sanders APRN.[employer] [address] [place] [address] Mr Imaging Referral ID Status Reason Start Date Expiration Date Visits Requested Visits Authorized [id number] Pending Review Auto-Generat ed Referral 09/07/2021 10/07/2022 1 1 Chief Complaint and Reason for Visit Chief Complaint Screening Additional Source Comments INFORMATION SOURCE (unrecogn ized section and content) DATE CREATED AUTHOR 01/02/2021 [facility] DATE CREATED AUTHOR AUTHOR'S ORGANIZ ATION 09/09/2021 [facility] DATE CREATED AUTHOR AUTHOR'S ORGANIZ ATION [facility]26/2022 [facility] DATE CREATED AUTHOR AUTHOR'S ORGANIZ ATION 04/22/2022 [facility] DATE CREATED AUTHOR AUTHOR'S ORGANIZ ATION 01/19/2023 [facility] Source Comments (unrecognize d section and content) In the event this informatio n is protected by the Federal Confidentiality of Alcohol and Drug Abuse Patient Records regulations: The Federal rules restrict any use of the information to criminally investigate or prosecute any alcohol or drug abuse patient.[facility] Reason for Visit (unrecogniz ed section and content) Reason Comments Follow Up Care Teams (unrecognized sec tion and content) 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 [address] [place] [address] PCP - General Family Practice 06/23/19 Team Status: Inactive Member Role Status Dates Dre Vogel DO Primary Care Provider, Referring Pr ovider Active Referral Self Attending Provider Active Team Status: Active Member Role Status Dates Dre Vogel DO Primary Care Provider Active Goals (unrecognized section and content) Goals may be documented in a n alternate section FOR RECORDS PERTAINING TO PATIENTS WHO ARE OR HAVE BEEN ENROLLED IN A CHEMICAL DEPENDENCY/SUBSTANCEABUSE PROGRAM, SOME INFORMATION MAY BE OMITTED. This clinical summary was aggregated from multiple sources. Caution should be exercised in using it in the provision of clinical care. This summary normalizes information from multiple sources, and as a consequence, information in this document may materially change the coding, format and clinical context of patient data. In addition, data may be omitted in some cases. CLINICAL DECISIONS SHOULD BE BASED ON THE PRIMARY CLINICAL RECORDS. [facility] [email or web address] [facility]. provides no warranty or guarantee of the accuracy or completeness of information in this document.
== END 2023-03-12 07:48 | disposition home or self-care (01) ==
LOC: RAD 07:51
DX: Z78.0 Asymptomatic menopausal state (principal); M85.80 Other specified disorders of bone density and structure, unspecified site
CPT/HCPCS: 77080

== ENCOUNTER 2023-06-17 11:40 | Emergency (ER) | payer OTHER, SELFPAY ==
[2023-06-17 11:43] VITALS: BP 139/86; PULSE 87; RESP 16; TEMP 36.7; O2SAT 97; BMI 32.7
--- NOTE | 2023-06-17 11:55 | ED.FEMALEGU1 ---
HPI - Female Genitourinary General Chief complaint: Urogenital-Female Stated complaint: ABDOMINAL PAIN Time Seen by Provider: 06/17/23 11:42 Source: patient Mode of arrival: walk-in History of Present Illness HPI Narrative: 57-year-old female presents for frequency and blood in her urine. She believes she has a UTI. 2 weeks ago she was seen at an urgent care center and diagnosed with UTI and she was prescribed Macrobid. She finished that prescription. No back pain or fever or vomiting. Her symptoms began again last night. Related Data Home Medications Medication Instructions Recorded Confirmed aspirin 81 mg tablet,delayed 81 mg PO DAILY 06/17/23 06/17/23 release isosorbide mononitrate 30 mg 30 mg PO DAILY 06/17/23 06/17/23 tablet,extended release 24 hr metoprolol succinate 25 mg 25 mg PO DAILY 06/17/23 06/17/23 tablet,extended release 24 hr rosuvastatin 40 mg tablet 40 mg PO DAILY 06/17/23 06/17/23 Previous Rx's Medication Instructions Recorded cephalexin 500 mg capsule 500 mg PO TID 7 days #21 caps 06/17/23 Allergies Allergy/AdvReac Type Severity Reaction Status Date / Time No Known Drug Allergies Allergy Verified 06/17/23 11:49 Review of Systems ROS Narrative A ten point review of systems is negative except as noted above. Exam Narrative Exam Narrative: Nurses note and vital signs reviewed and patient is not hypoxic. General: The patient appears well and in no apparent distress. Patient is resting comfortably on cart. Skin: Warm, dry, no pallor noted. There is no rash noted. Head: Normocephalic, atraumatic Eye: Normal conjunctiva, no drainage Ears, Nose, Mouth, and Throat: oral mucosa is moist. Nares patent. Cardiovascular: Regular Rate and Rhythm Respiratory: Patient is in no distress, no accessory muscle use, lungs are clear to auscultation, no wheezing, rales or rhonchi Back: non-tender, no CVA tenderness GI: Soft and nontender Musculoskeletal: The patient has no evidence of calf tenderness, no pitting edema, symmetrical pulses noted bilaterally Neurological: A&O, normal speech Psychiatric: Cooperative Constitutional Vital Signs, click to edit/add: Last Vital Signs Temp 98.0 F 06/17/23 11:43 Pulse 87 06/17/23 11:43 Resp 16 06/17/23 11:43 BP 139/86 06/17/23 11:43 Pulse Ox 97 06/17/23 11:43 O2 Del Method Room Air 06/17/23 11:43 Course Vital Signs Vital signs: Vital Signs Temperature 98.0 F 06/17/23 11:43 Pulse Rate 87 06/17/23 11:43 Respiratory Rate 16 06/17/23 11:43 Blood Pressure 139/86 06/17/23 11:43 Pulse Oximetry 97 06/17/23 11:43 Oxygen Delivery Method Room Air 06/17/23 11:43 Temperature 98.0 F 06/17/23 11:43 Pulse Rate 87 06/17/23 11:43 Respiratory Rate 16 06/17/23 11:43 Blood Pressure 139/86 06/17/23 11:43 Pulse Oximetry 97 06/17/23 11:43 Oxygen Delivery Method Room Air 06/17/23 11:43 MDM - Female Genitourinary MDM Narrative Medical decision making narrative: UT is identified. Ultram ordered and she is prescribed Keflex. Treatment diagnosis and follow-up were discussed with the patient. I have no clinical suspicion of pyelonephritis. Differential Diagnosis Differential diagnosis: Likely urinary tract infection and other (Cystitis, pyelonephritis) Lab Data Attestation: I reviewed the patient's lab results. Labs: Lab Results 06/17/23 Range/Units 11:49 Urine Color Lt. yellow (YELLOW) Urine Clarity Clear (CLEAR) Urine pH 6.0 (5.0-9.0) Ur Specific [place] 1.010 (1.005-1.025) Urine Protein 30 A (NEG/TRACE) mg/dL Urine Glucose (UA) Negative (NEGATIVE) mg/dL Urine Ketones Negative (NEGATIVE) mg/dL Urine Occult Blood Large A (NEGATIVE) Urine Nitrite Negative (NEGATIVE) Urine Bilirubin Negative (NEGATIVE) Urine Urobilinogen 0.2 (0.2-1.0) EU/dL Ur Leukocyte Esterase Large A (NEGATIVE) Urine RBC 20-50 A (0-2) #/HPF Urine WBC 20-50 A (NONE SEEN) #/HPF Ur Squamous Epith Cells Rare (NONE/RARE) #/LPF Urine Crystals None seen (None Seen) #/HPF Urine Bacteria Trace A (NONE SEEN) #/HPF Urine Casts Seen A (NONE SEEN) #/LPF Hyaline Casts Rare Urine Mucus None seen (NONE SEEN) Discharge Plan Discharge Chief Complaint: Urogenital-Female Clinical Impression: Urinary tract infection Patient Disposition: Home, Self-Care Time of Disposition Decision: 12:22 Condition: Good Mode of Transportation: Private Vehicle Prescriptions / Home Meds: New cephalexin 500 mg capsule 500 mg PO TID 7 Days Qty: 21 0RF No Action aspirin 81 mg tablet,delayed release (DR/EC) 81 mg PO DAILY isosorbide mononitrate 30 mg tablet extended release 24 hr 30 mg PO DAILY metoprolol succinate 25 mg tablet extended release 24 hr 25 mg PO DAILY rosuvastatin 40 mg tablet 40 mg PO DAILY Instructions: Urinary Tract Infection in Women (ED) Stand Alone Forms: Portal Instructions Referrals: Physician,Non-Staff, MD [Primary Care Provider] - 1 week
[2023-06-17 12:07] LABS: Bilirubin Urine NEGATIVE (NEGATIVE); Blood Urine LARGE (NEGATIVE); Clarity Urine CLEAR (CLEAR); Color Urine LT. YELLOW (YELLOW); Glucose Urine UA NEGATIVE (NEGATIVE); Ketones Urine NEGATIVE (NEGATIVE); Leukocyte Esterase Urine LARGE (NEGATIVE); Nitrite Urine NEGATIVE (NEGATIVE); Protein Urine 30 mg/dL (NEG/TRACE); Urobilinogen Urine 0.2 EU/dL (0.2-1.0)
--- OUTSIDE RECORDS SUMMARY | 2023-06-17 12:14 | XMS_ITS | CCD ---
Author Name Unknown Address [address] [facility] [address] [place] [id number] Organization [facility] Care Team Providers Care Health Insurance Assessor Name Role Phone UNKNOWN, PROVIDER Attending Unavailable UNKNOWN, PROVIDER Admitting Unavailable HOUSE, DRE Referring Unavailable HOUSE, DRE Primary Care Unavailable UNKNOWN, PROVIDER Attending Unavailable UNKNOWN, PROVIDER Admitting Unavailable SELF, REFERRED Referring Unavailable SELF, REFERRED Primary Care Unavailable House Sr., Dre Fernandes Primary Care Provider KATHERINEUKARBAVE, DR HAIR Attending Unavailable HOUSE, DR ERICKSON [...] Unavailable House, DO Erickson Primary Care Provider DO Dre Vogel Referring Provider Self, Referral Attending Provider Unavailable JOSE REDD Attending Unavailable MAYKEL Read Attending Provider [phone] Miladys Read Unavailable Miladys Read Attending Unavailable Miladys Read Admitting Unavailable Allergies Allergy Classification Reported Allergen(s) Allergy Type Date of Onset Reaction(s) Facility (1 source) Iodine (And Iodine Containting Drugs) Drug allergy (disorder) 12-08-2020 [facility] Repository (3 sources) Iodine Drug Allergy 08-04-2019 Anaphylaxis [facility] (1 source) Iodine Drug Allergy [facility] Repository (1 source) Iodine Drug Allergy 11-06-2020 [facility] Repository Medications Current Medications Medication Drug Class(es) Dates Sig (Normalized) Sig (Original) Aspirin (2 sources) Platelet Aggregation Inhibitor, Nonsteroidal Anti-inflammatory Drug Aspirin EC Active 24 hr isosorbide mononitrate 30 mg extended release oral tablet (2 sources) Nitrate Vasodilator take 1 tablet by mouth every twenty-four hours Isosorbide Mononitrate ER 30 MG 1 tablet in the morning Orally Once a day Active iv contrast (will be provided with radiology [...] in the MR contrast administration guidelines link 24 hr metoprolol succinate 25 mg extended release oral tablet (2 sources) beta-Adrenergic Ki take 1 tablet by mouth every twenty-four hours Metoprolol Succinate ER 25 MG 1 tablet Orally Once a day Active nitrofurantoin, macrocrystals 25 mg / nitrofurantoin, monohydrate 75 mg oral capsule (2 sources) Nitrofuran Antibacterial Start: 06-08-2023 take 1 capsule by mouth every twelve hours Macrobid 100 MG 1 capsule with food Orally every 12 hrs for 7 days May, Active rosuvastatin calcium 40 mg oral tablet (2 sources) HMG-CoA Reductase Inhibitor take 1 tablet by mouth every twenty-four hours Rosuvastatin Calcium 40 MG 1 tablet Orally Once a day Active Completed/Discontinued Medications Medication Drug Class(es) Dates Sig [...] capsule (1 source) take 1 capsule by mouth once daily Multivitamin capsule Take 1 capsule by mouth once daily. 0 Active Comment on above: Take 1 capsule by [facility] once daily. 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 RECORDS SUPERVISOR CURRENT DRUG THERAPY] Onset: 02-26-2022 Episodic Other [...] [ANGIONEUROTIC EDEMA INITIAL ENCNTR] Onset: 02-24-2022 Episodic Urinary tract infections (1 source) Acute cystitis with hematuria Episodic Past or Other Problems Problem Classification Problem Date Documented Da te Episodic/Chronic Conditions associated with dizziness or vertigo (1 source) Dysfunction of left vestibular system; Translations: [Labyrinthine dysfunction, left ear] Onset: 11-18-2019 11-18-2019 Episodic Results Test Name Value Interpretation Reference Range Facility Urinalysis - AUTOMATEDon Appearance (U) cloudy [place] [employer] Other Bilirubin Ql (U) small [employer] [place] [employer] Other Color (U) red [facility] Other Glucose Ql (U) Negative [employer] Other Hemoglobin Ql (U) large [employer] Other Ketones Ql (U) Negative [employer] Other Leukocyte esterase Test strip Ql (U) large [facility] Other Nitrite Ql (U) Negative [employer] Other pH (U) 7.5 [pH] [facility] Other Protein Ql (U) 30 [employer] Other Specific gravity (U) [Rel density] 1.015 [facility] Other Urobilinogen (U) [Mass/Vol] 0.2 mg/dL [facility] Other Urinalysis - AUTOMATED [facility] Other Urine Cultureon 06-08-2023 Bacteria identified Cx Nom (U) ORGANISM: Escherichia coli (O:ESCCOL) [place] Count >100,000 Aerobic ELISA Charge ([id number]) ---- SUSCEPTIBILITY --- ORGANISM: O:ESCCOL ANTIBIOTIC INTERPRETATION ELISA Amikacin S <16 Amoxacillin/K Clavulanate S <8 Ampicillin S <8 Ampicillin/Sulbactam S <4 Aztreonam S <4 Cefazolin S <2 Cefepime S <2 Ceftazidime S <1 Ceftazidime/Avibactam S <4 Ceftolozane/Tazobacta m S <2 Ceftriaxone S <1 Cefuroxime S <4 Ciprofloxacin S <0.25 Ertapenem S <0.5 Gentamicin S <2 Levofloxacin S <0.5 Meropenem S <1 Meropenem/Vaborbactam S <2 Nitrofurantoin S <32 Piperacillin/Tazobact am S <8 Tetracycline S <4 Tigecycline S <2 Tobramycin S <2 Trimethoprim/Sulfamet hoxazole S <0.5 S = SUSCEPTIBLE I = INTERMEDIATE R = RESISTANT BLANK = DATA NOT AVAILABLE, OR DRUG NOT ADVISABLE OR TESTED R* = RESISTANCE DUE TO EXTENDED SPECTRUM BETA-LACTAMASES ESBL = EXTENDED SPECTRUM BETA-LACTAMASE TFG = THYMIDINE-DEPENDENT STRAIN KATHERINE = BETA-LACTAMASE POSITIVE IB = INDUCIBLE BETA-LACTAMASE. APPEARS IN PLACE OF 'S' WITH SPECIES KNOWN TO POSSESS INDUCIBLE BETA-LACTAMASES. POTENTIALLY THEY MAY BECOME RESISTANT TO ALL B-LACTAM DRUGS. PERFORMED BY: [place] [address] PATHOLOGIST FUR GLOSSER BALWINDER DAVIDSON M.D. Normal [facility] Comment on above: Performed By: #### C UU #### [place] [id number] [facility] Office Visiton 01-17-2023 Follow-up visit [id number] Leonora Pike 1965 F Date Provider Department Center 01/17/2023 JOSE OLSON [facility] No family history on file Level of Service:37221 [place] OFFICE/OUTPATIENT ESTABLISHED LOW MDM 20-29 MIN Reason for Visit and Comments: Follow-up [700778] - Yearly Normal [facility] CBC AUTO DIFFon 02-24-2022 BASO # 0.1 103/ul Normal 0.0-0.1 [facility] Comment on above: Performed By: #### C BC #### [facility] [address] [address] [address] Sherley Dubois Basophils/100 WBC (Bld) 0.9 % Normal 0.2-2.0 [facility] Comment on above: Performed By: #### C BC #### [facility] [address] [address] [address] Sherley Dubois EO # 0.3 103/ul Normal 0.0-0.7 [facility] Comment on above: Performed By: #### C BC #### [facility] [address] [place] [address] Dr. Sherley Dubois Eosinophils/100 WBC (Bld) 5.0 % Normal 0.9-7.0 [facility] Comment on above: Performed By: #### C BC #### [facility] [address] [place] [address] Dr. Sherley Dubois Erythrocyte distribution width (RBC) [Ratio] 12.0 % Normal 11.0-15.0 [facility] Comment on above: Performed By: #### C BC #### [facility] [address] [place] [address] Dr. Sherley Dubois Hematocrit (Bld) [Volume fraction] 43.6 % Normal 36.0-48.0 [facility] Comment on above: Performed By: #### C BC #### [facility] [address] [place] [address] Dr. Sherley Dubois Hemoglobin (Bld) [Mass/Vol] 14.6 g/dL Normal 12.0-16.0 [facility] Comment on above: Performed By: #### C BC #### [facility] [address] [place] [address] Dr. Sherley Dubois IG # 0.01 10e3/ul Normal 0.00-0.03 [facility] Comment on above: Performed By: #### C BC #### [facility] [address] [place] [address] Dr. Sherley Dubois IG % 0.2 % Normal 0.0-0.5 [facility] Comment on above: Performed By: #### C BC #### [facility] [address] [place] [address] Dr. Sherley Dubois LYMPH # 1.9 103/ul Normal 1.2-3.8 [facility] Comment on above: Performed By: #### C BC #### [facility] [address] [place] [address] Dr. Sherley Dubois Lymphocytes/100 WBC (Bld) 34.2 % Normal 20.5-60.0 [facility] Comment on above: Performed By: #### C BC #### [facility] [address] [place] [address] Dr. Sherley Dubois MANUAL DIFF REQ NO Normal [facility] Comment on above: Performed By: #### C BC #### [facility] [address] [place] [address] Dr. Sherley Dubois MCH (RBC) [Entitic mass] 30.9 pg Normal 26.7-34.0 [facility] Comment on above: Performed By: #### C BC #### [facility] [address] [place] [address] Dr. Sherley Dubois MCHC (RBC) [Mass/Vol] 33.5 g/dL Normal 29.9-35.2 [facility] Comment on above: Performed By: #### C BC #### [facility] [address] [place] [address] Dr. Sherley Dubois MCV (RBC) [Entitic vol] 92.4 fL Normal 81.0-99.0 [facility] Comment on above: Performed By: #### C BC #### [facility] [address] [place] [address] Dr. Sherley Dubois MONO # 0.6 103/ul Normal 0.3-0.8 [facility] Comment on above: Performed By: #### C BC #### [facility] [address] [place] [address] Dr. Sherley Dubois Monocytes/100 WBC (Bld) 10.1 % Normal 1.7-12.0 [facility] Comment on above: Performed By: #### C BC #### [facility] [address] [place] [address] Dr. Sherley Dubois NEUT # 2.8 103/ul Normal 1.4-6.5 [facility] Comment on above: Performed By: #### C BC #### [facility] [address] [place] [address] Dr. Sherley Dubois Neutrophils/100 WBC (Bld) 49.6 % Normal 43.0-75.0 [facility] Comment on above: Performed By: #### C BC #### [facility] [address] [address] [address] Sherley Dubois Platelet mean volume (Bld) [Entitic vol] 9.4 fL Critically low 9.5-13.5 [facility] Comment on above: Performed By: #### C BC #### [facility] [address] [place] [address] Dr. Sherley Dubois PLT 214 103/ul Normal 150-450 [facility] Comment on above: Performed By: #### C BC #### [facility] [address] [place] [address] Dr. Sherley Dubois RBC 4.72 106/ul Normal 4.20-5.40 [facility] Comment on above: Performed By: #### C BC #### [facility] [address] [place] [address] Dr. Sherley Dubois WBC 5.6 103/ul Normal 4.0-11.0 [facility] Comment on above: Performed By: #### C BC #### [facility] [address] [place] [address] Dr. Sherley Dubois LIPID PROFILEon 02-24-2022 CHOL-HDL RATIO NORM SEE BELOW Normal [facility] Comment on above: Result Comment: 3.3 - 4.4 LOW RISK 4.4 - 7.1 AVERAGE RISK 7.1 - 11.0 MODERATE RISK >11.0 HIGH RISK Performed By: #### T 4, LIPID, TSH, CMP #### [facility] [address] [place] [address] Dr. Sherley Dubois Cholesterol [Mass/Vol] 137 mg/dL Normal <=200 [facility] Comment on above: Performed By: #### T 4, LIPID, TSH, CMP #### [facility] [address] [place] [address] Dr. Sherley Dubois Cholesterol in HDL [Mass/Vol] 44 mg/dL Normal 40-60 [facility] Comment on above: Performed By: #### T 4, LIPID, TSH, CMP #### [facility] [address] [place] [address] Dr. Sherley Dubois Cholesterol in LDL [Mass/Vol] 73.6 mg/dL Normal [facility] Comment on above: Performed By: #### T 4, LIPID, TSH, CMP #### [facility] [address] [place] [address] Dr. Sherley Dubois Cholesterol.total/C holesterol in HDL [Mass ratio] 3.1 {ratio} Normal [facility] Comment on above: Performed By: #### T 4, LIPID, TSH, CMP #### [facility] [address] [address] [address] Sherley Dubois HDL NORMAL > or = 60 mg/dl - LO W CARDIOVASCULAR RISK <40 mg/dl - HIGH CARDIOVASCULAR RISK Normal [facility] Comment on above: Performed By: #### T 4, LIPID, TSH, CMP #### [facility] [address] [place] [address] Dr. Sherley Dubois LDL CALC NORMAL SEE BELOW Normal [facility] Comment on above: Result Comment: <100 mg/dl OPTIMAL 100 - 129 mg/dl NEAR OR ABOVE OPTIMAL 130 - 159 mg/dl BORDERLINE HIGH 160 - 189 mg/dl HIGH >190 mg/dl VERY HIGH Performed By: #### T 4, LIPID, TSH, CMP #### [facility] [address] [place] [address] Dr. Sherley Dubois Triglyceride [Mass/Vol] 97 mg/dL Normal <=150 [facility] Comment on above: Performed By: #### T 4, LIPID, TSH, CMP #### [facility] [address] [place] [address] Dr. Sherley Dubois VLDL CALC 19.4 mg/dL Normal [facility] Comment on above: Performed By: #### T 4, LIPID, TSH, CMP #### [facility] [address] [address] [address] Sherley Dubois PROF 14(COMP METB)on 022 Albumin [Mass/Vol] 3.9 g/dL Normal 3.4-5.[address] [facility] Comment on above: Performed By: #### T 4, LIPID, TSH, CMP #### [facility] [address] [place] [address] Dr. Sherley Dubois Albumin/Globulin [Mass ratio] 1.3 {ratio} Normal [facility] Comment on above: Performed By: #### T 4, LIPID, TSH, CMP #### [facility] [address] [place] [address] Dr. Sherley Dubois ALP [Catalytic activity/Vol] 95 U/L Normal 46-116 [facility] Comment on above: Performed By: #### T 4, LIPID, TSH, CMP #### [facility] [address] [place] [address] Dr. Sherley Dubois ALT [Catalytic activity/Vol] 37 U/L Normal 14-59 [facility] Comment on above: Performed By: #### T 4, LIPID, TSH, CMP #### [facility] [address] [place] [address] Dr. Sherley Dubois Anion gap [Moles/Vol] 9.7 mmol/L Normal [facility] Comment on above: Performed By: #### T 4, LIPID, TSH, CMP #### [facility] [address] [place] [address] Dr. Sherley Dubois AST [Catalytic activity/Vol] 16 U/L Normal 15-37 [facility] Comment on above: Performed By: #### T 4, LIPID, TSH, CMP #### [facility] [address] [place] [address] Dr. Sherley Dubois Bilirubin [Mass/Vol] 0.4 mg/dL Normal 0.2-1.0 [facility] Comment on above: Performed By: #### T 4, LIPID, TSH, CMP #### [facility] [address] [place] [address] Dr. Sherley Dubois Calcium [Mass/Vol] 9.1 mg/dL Normal 8.5-10.[address] [facility] Comment on above: Performed By: #### T 4, LIPID, TSH, CMP #### [facility] [address] [place] [address] Dr. Sherley Dubois Chloride [Moles/Vol] 108 mmol/L Critically high 98-107 [facility] Comment on above: Performed By: #### T 4, LIPID, TSH, CMP #### [facility] [address] [address] [address] Sherley Dubois CO2 [Moles/Vol] 29.2 mmol/L Normal 21.0-32.0 [facility] Comment on above: Performed By: #### T 4, LIPID, TSH, CMP #### [facility] [address] [address] [address] Sherley Dubois Creatinine [Mass/Vol] 0.65 mg/dL Normal 0.55-1.02 [facility] Comment on above: Performed By: #### T 4, LIPID, TSH, CMP #### [facility] [address] [address] [address] Sherley Dubois EGFR-AF IRAQI >60 Normal >=60 [facility] Comment on above: Performed By: #### T 4, LIPID, TSH, CMP #### [facility] [address] [address] [address] Sherley Dubois EGFR-NON AF IRAQI >60 Normal >=60 [facility] Comment on above: Performed By: #### T 4, LIPID, TSH, CMP #### [facility] [address] [address] [address] Sherley Dubois Globulin (S) [Mass/Vol] 3.1 g/dL Normal [facility] Comment on above: Performed By: #### T 4, LIPID, TSH, CMP #### [facility] [address] [address] [address] Sherley Dubois Glucose [Mass/Vol] 92 mg/dL Normal 74-106 [facility] Comment on above: Performed By: #### T 4, LIPID, TSH, CMP #### [facility] [address] [address] [address] Sherley Dubois Potassium [Moles/Vol] 3.9 mmol/L Normal 3.5-5.1 [facility] Comment on above: Performed By: #### T 4, LIPID, TSH, CMP #### [facility] [address] [address] [address] Sherley Dubois Protein [Mass/Vol] 7.0 g/dL Normal 6.4-8.2 [facility] Comment on above: Performed By: #### T 4, LIPID, TSH, CMP #### [facility] [address] [place] [address] Dr. Sherley Dubois Sodium [Moles/Vol] 143 mmol/L Normal 136-[address] [facility] Comment on above: Performed By: #### T 4, LIPID, TSH, CMP #### [facility] [address] [place] [address] Dr. Sherley Dubois Urea nitrogen [Mass/Vol] 12.0 mg/dL Normal 7.0-18.0 [facility] Comment on above: Performed By: #### T 4, LIPID, TSH, CMP #### [facility] [address] [place] [address] Dr. Sherley Dubois Urea nitrogen/Creatinine [Mass ratio] 18.5 mg/mg Normal [facility] Comment on above: Performed By: #### T 4, LIPID, TSH, CMP #### [facility] [address] [place] [address] Dr. Sherley Dubois T4on 02-24-2022 T4 [Mass/Vol] 6.50 ug/dL Normal 4.80-13.90 [facility] Comment on above: Performed By: #### T 4, LIPID, TSH, CMP #### [facility] [address] [place] [address] Dr. Sherley Dubois TSHon 02-24-2022 TSH 3.491 uIU/mL Normal 0.358-3.740 [facility] Comment on above: Performed By: #### T 4, LIPID, TSH, CMP #### [facility] [address] [place] [address] Dr. Sherley Dubois MRI BRAIN WO/W IVCONon [...] This information is taken directly from the us customs and border officer system. s/p Left retrosigmoid approach for resection. [...] Stable findings of remote left-sided meningioma resection.. Gentry extra-axial fluid present along lateral margins of [...] Concordant findings on the post gadolinium scans. Cistern Room Operator: PSCB Transcribe Date/Time: Sep 05 2021 11:17A Dictated by : TRAN GARCIA MD This examination was interpreted and the report reviewed and electronically signed by: TRAN GARCIA MD on Sep 05 2021 11:27AM EST [id number] LEONORA PIKE ([id number]) 1965 F Date Time Provider Department 05/25/21 DENISE SANDERS [facility] During your visit today, we recorded the [...] his office to discuss symptoms. Denise Sanders APRN.CNP Allergies As of Date: 05/25/2021 Noted Allergy Reaction IODINE 08/04/2019 10 - Anaphylaxis Comments: remembers that she was taken to the recovery room - she was just 13 years of age at the time Date Reviewed: 09/07/2020 Reviewed by: Chele Sanchez, parts counter associate - Fully Assessed Reason for Visit: Patient Question [4869] Prescriptions as of 05/25/2021 - diclofenac, EC, [...] Status:Closed by DENISE SANDERS on 05/25/21 Normal [facility] Cardiovascular Lab Reporton 12-08-2020 Cardiovascular Lab Report [facility] Patient Name: Leonora Pike MR #: [id number] [facility] Physician: Reginaldo Thrasher M.D. Department of Service Date: 12/08/2020 Medicine Birthdate: 1965 Division of Room #: CC Cardiology Adult Cardiovascular Services [place] [address] Cardiovascular Laboratory Report INDICATION: The patient is [...] signed informed consent. She was brought to greens laborer in a fasting state. The right wrist area was prepped and draped in usual fashion. Micropuncture technique was used to gain access in the right radial artery and a 6-Slovak x 11 cm Hydrophilic sheath was advanced. Verapamil was given through the sheath and heparin was administered intravenously. Bilateral selective coronary angiography was then performed using 6-Slovak JL3.5 and JR5 diagnostic catheters. Catheters were [...] A/Reginaldo Thrasher M.D. Date Trans: 12/08/2020 11:25 A/diamante [id number] cc: Dre Vogel D.O. [address] [facility] [address] [facility] [address] [facility] Vital Signs Date Time Vital Sign Value Performing Clinician Facility 06-08-2023 09:25-0500 Body height 168.91 cm Miladys Read Other [facility] Other 06-08-2023 09:25-0500 Body mass index (BMI) [Ratio] 32.81 kg/m2 Miladys Read Other [facility] Other 06-08-2023 09:25-0500 Body temperature 97.8 [degF] Miladys Read Other [facility] Other 06-08-2023 09:25-0500 Body weight 93.62 kg Miladys Read Other [facility] Other 06-08-2023 09:25-0500 Diastolic blood pressure 79 mm[Hg] Miladys Read Other [facility] Other 06-08-2023 09:25-0500 Respiratory rate 18 /min Miladys Read Other [facility] Other 06-08-2023 09:25-0500 SaO2% (BldA) [Mass fraction] 97 % Miladys Read Other [facility] Other 06-08-2023 09:25-0500 Systolic blood pressure 116 mm[Hg] Miladys Read Other [facility] Other Encounters Encounter Date Encounter Type Care Provider Facility Start: 06-10-2023 End: 06-10-2023 ambulatory Miladys Read Other [facility] Other Start: 06-10-2023 Telephone encounter Miladys Read [facility] Start: 06-08-2023 Office outpatient vi sit 15 minutes Miladys Read [facility] Start: 06-08-2023 End: 06-08-2023 ambulatory Miladys Read Facility:[facility] Start: 06-08-2023 End: 06-08-2023 ambulatory Miladys Read Other [facility] [employer] Other Start: 06-08-2023 End: 06-08-2023 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 Miladys Read Work Phone: [facility] [place] Work Phone: Start: 01-17-2023 End: 01-17-2023 ambulatory JOSE TRAMAINE [facility] Start: 04-10-2022 End: 04-10-2022 ambulatory DO Dre Vogel Work Phone: [facility] Work Phone: Start: 04-10-2022 End: 04-10-2022 Patient encounter procedure DO Dre Vogel Work Phone: [facility] Start: 02-24-2022 End: 02-25-[address] DRE VOGEL Facility:[facility] Start: 09-07-2021 End: 09-07-2021 ambulatory Denise Sanders APRN.PARTS AND SERVICE MANAGER Work Phone: [facility] Comment on above: Benign neoplasm of b rain, unspecified brain region (HCC) Start: 09-07-2021 End: 09-07-2021 Telemedicine consultation with patient Denise Sanders APRN.PARTS AND SERVICE MANAGER Work Phone: [facility] Start: 08-19-[address] DRE VOGEL Facili ty:[facility] Start: 04-30-[address] REGINALDO THRASHER Fac ility:[facility] Start: 03-30-[address] REGINALDO THRASHER Fac ility:[facility] Start: 12-08-2020 End: 12-09-2020 ambulatory PROVIDER UNKNOWN Facility:[facility] Start: 11-25-2020 End: 12-23-2020 ambulatory PROVIDER UNKNOWN Facility:[facility] Procedures Date Procedure Procedure Detail Performing Clinician Start: 04-10-2022 Screening mammograph y of bilateral breasts DO Dre Vogel Work Phone: Start: 03-20-2020 Adult depression scr eening assessment Denise Sanders APRN.PARTS AND SERVICE MANAGER Work Phone: Plan of Treatment Date Care Activity Detail Author Start: 06-08-2023 Bacteria identified in Urine by Culture [facility] Start: 09-30-2022 DIABETES SCREEN DIABETES SCREEN [facility] Start: 07-08-2021 COVID-19 VACCINE (4 - Booster for Pfizer series) COVID-19 VACCINE (4 - Booster for Pfizer series) [facility] Start: 03-20-2021 Adult depression screening assessment DEPRESSION SCREENING [facility] Start: 2014 SHINGRIX VACCINE (1 of 2) SHINGRIX VACCINE (1 of 2) [facility] Start: 2009 COLOGUARD (FIT-DNA) COLOGUARD (FIT-D NA) [facility] Start: 2009 Colonoscopy COLONOSCOPY [facility] Start: 2009 COLORECTAL CANCER SCREENING COLORECTAL CANCER SCREENING [facility] Start: [address] COLONOGRAPHY [facility] Start: 2009 FECAL OCCULT BLOOD FECAL OCCULT BLOO D [facility] Start: 2009 LIPID SCREEN LIPID SCREEN [facility] Start: 2009 SIGMOIDOSCOPY SIGMOIDOSCOPY [facility] Start: 2004 Mammography MAMMOGRAM [facility] Start: 1994 HPV TESTING HPV TESTING [facility] Start: 1985 PAP TESTING PAP TESTING [facility] Start: 09-25-1983 Urine microalbumin profile DTAP,TDAP,TD (1 - Tdap) [facility] Start: 1982 HEPATITIS C SCREENING HEPATITIS C SC REENING [facility] Start: 1982 HIV SCREENING HIV SCREENING [facility] End: 10-07-2022 Mri brain brain stem w/o w/contrast material MRI BRAIN WO/W IVCON Radiology Routine Benign neoplasm of brain, unspecified brain region (HCC) 1 Occurrences starting 09/07/2021 until 10/07/2022 [facility] Work Phone: Comment on above: 1 Occurrences starti ng 09/07/2021 until 10/07/2022 Payers Date Payer Category Payer Unknown [employer] PPO OOS [id number] 2019-Present [phone] [address] [place] [address] PPO [id number] 1964 Unknown [id number] 1964 Unknown [id number] 1964 Unknown [id number] 1964 Unknown [id number] 1964 Unknown [id number] 1964 Unknown [id number] 1959 Self-pay 1959 Unknown [id number] 1959 Unknown [id number] Unknown [id number] Social History Date Type Detail Facility Start: 10-16-2019 [facility] Work Phone: Start: 12-26-2017 End: 10-01-2019 History of tobacco use Current smoker [facility] Work Phone: End: 10-01-2019 History of tobacco use Cigarette Smoker [facility] Work Phone: Start: 10-16-2019 Cigarettes smoked current (pack per day) - Reported 0.5 [facility] Start: 10-16-2019 Tobacco use and exposure Smokeless tobacco non-user [facility] Work Phone: Start: 09-09-2019 History SDOH Alcohol Comment Rare [facility] Start: 10-03-2019 History SDOH Financial 5 [facility] Start: 10-03-2019 History SDOH Food Worry 1 [facility] Start: 10-03-2019 History SDOH Transpo rt Med 2 [facility] Start: 1965 Sex Assigned At Not on file C [facility] Start: 08-26-2021 End: 09-05-2021 Exposure to SARS-CoV-2 (event) Not sure [facility] Start: 1965 Sex Assigned At Female F [facility] Sex Assigned At Sex Assigned At Bir th [employer] Other Medical Equipment Procedure Code Equipment Code Equipment Original Text Equipment Identifier Dates Graft Duragen Pl us Bovine Collagen Matrix 2x2in Soft Tissue Patch - [id number] Start: 10-02-2019 Plate [place] [facility] Iii 42mm Small Round .3mm Bone Closed Outer Frame - [id number] Start: 10-02-2019 Screw 1.5mm 4mm Bone Self Drill Cross Pin Craniomaxillofacial - [id number] Start: 10-02-2019 Clinical Notes 08-04-2019 to 06-08-2023 Note Date & Type Note Facility 06-08-2023 Evaluation note Encounter Date Diagnosis Assessment Notes May, Dysuria (ICD-10 - R30.0) May, Acute cystitis with hematuria (ICD-10 - N30.01) Discussed diagnosis and dipstick findings with patient. Will treat patient for UTI. Instructed patient to take antibiotic as prescribed, take with food, complete entire course of therapy even if feeling better. Allergies and recent antibiotic use were reviewed with patient. Advised patient culture was sent today and we will call with her results in 2-5 days. Patient instructed to push fluids. Patient symptoms should improve in the next 48 hours, if symptoms persist follow up with PCP or UC. Immediate eval by ER if back or flank pain, fever, chills, N/V, or any other concerning symptoms arise. Patient verbalizes understanding and is agreeable to treatment plan. [employer] Other [id number] NoteContinamy cm Reviewed labs from 01/2022 and liver function was normal Lipid levels were well controlled, States she will be having annual labs soon [facility]23 NoteCoronary artery disease is stable without concerning symptoms Continue GDMT- ASA, toprol, crestor, imdur continue risk factor modifications- heart healthy diet, regular exercise as tolerated and continue all medications.[facility] 01-17-2023 NoteUTP CARDIOLOGY PROGRESS NOTE HPI: Leonora Pike is a 57 [...] the past 12 (more content not included)... [facility]05-11-2022 NoteHNO ID: [id number] Author: Denise Sanders APRN.FLACO Service: ? Author Type: Nurse Practitioner Type: Progress Notes Filed: 09/07/2021 11:07 AM Note Text: [facility] NEURO-ONCOLOGY VIRTUAL VISIT NOTE This is a virtual visit using [employer] video visit. It required patient-provider interaction for [...] not have success. She is seeing an advertising copywriter for hearing loss and ENT. She received [...] (HCC) 09/26/1979 Low Grade s/p Craniotomy at [facility] by Dr. 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 Rafal Shay FAMILY HISTORY [...] Oriented to p (more content not included)... [facility]05-11-2022 History of Present illness Narrative* Denise Sanders APRN.PARTS AND SERVICE MANAGER - 09/07/2021 11:00 AM EDT Images from the original note were not included. [facility] NEURO-ONCOLOGY VIRTUAL VISIT NOTE This is a virtual visit using [employer] video visit. It required patient-provider interaction for themedical decision making as documented below. 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 Shestates she has not had any improvement in overall symptoms but states she felt overall better aftergoing to her first appointment. She states she would like to return to work at this time. Of note, she will need to be cleared by physician through [facility] before returning to work. 03/18/20 Presents today for follow-up with new MRI brain for review. Since last visit, she continues to havedizziness induced by turning head side to side. 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 She did vestibular PT and did not have success. She is seeing an advertising copywriter for hearing loss and ENT. She received bilateral hearing aids, but does not wear them with consistency. 09/08/20 Presents today with her daughter for follow-up with new MRI brain for review. Since last visit, shedenies any new neurological symptoms. She continues to [...] (HCC) 09/26/1979 Low Grade s/p Craniotomy at [facility] by Dr. 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 This information is taken directly from the us customs and border officer system. s/p Left retrosigmoid approach for resection. [...] Stable findings of remote left-sided meningioma resection.. Gentry extra-axial fluid present along lateral margins of [...] Concordant findings on the post gadolinium scans. Cistern Room Operator: WENDY Transcribe Date/Time: Sep 05 2021 11:17A [...] which included preparing to see the patient, [id number] patient care, completing clinical documentation, obtaining and/or reviewing separately obtained history, counseling and educating the patient/family/caregiver, ordering medications, marlys ts, or procedures, communicating results to the patient/family/caregiver and care coordination (notseparately reported). Denise Sanders APRN.CNP Certified Nurse Practitioner cc: Reynold Goss MD--EPIC [facility] NoteHNO ID: [id number] Author: FRANSICO Carmona Service: ? Author Type: [...] Exam(s) Completed: Head: Routine Brain SIGNATURE: Daniela Ramírez CT PATIENT NAME: Leonora Pike DATE: September 05, 2021 TIME: 9:58 [facility]04-06-2020 History of Past illness Narrative* Problem Noted Date Resolved Date Compression of brain 08/04/2019 11/18/2019 Last Assessment & Plan: Present on admission See meningioma POC Improved postop Cerebellar edema 08/04/2019 11/18/2019 Last Assessment & Plan: Present on admission Clinically significant cerebral edema treating with decadron 4bid (SSI, PPI) with intermodal truck driver taper plan documented as of this encounter (statuses as of 09/07/2021) [facility] Diagnosis Benign neoplasm of brain, unspecified brain region (HCC) documented in this encounter [facility] noteNo assessment information availableC[facility] Clinic [facility] Work Phone: Evaluation noteNo InformationNortChester [facility] [place] [employer] Other History general Narrative - Reported* Type Description Date Medical History osteopenia Surgical History brain surgery 2019 [facility] [employer] Other Summary Purpose Family History Relationship Condition Age at Onset Recorded Date/T watson father History of stroke Unknown Heart disease Unknown Not Specified Malignant neoplasm Unknown Malignant neoplasm of breast Unknown sister Parkinson's disease Unknown Advance Directives Documents on File Type Date Recorded Patient Head Orthopedic Team Physician Expl anation Advance Directive(s) 10/01/2019 12:10 PM Advance Directive(s) 09/17/2019 1:41 PM Advance Directive Response Recorded Date/ Time Advance Directives No August 03 4:25pm Reason for Referral Specialty Diagnoses / Procedures Referred By Adam strong Referred To Contact MR IMAGING Diagnoses Benign neoplasm of brain, unspecified brain region (HCC) Procedures MRI BRAIN WO/W IVCON MRI BRAIN BRAIN STEM W/O W/CONTRAST MATERIAL Denise Sanders, PLASTER MACHINE TENDER.PARTS AND SERVICE MANAGER [address] [facility] [address] Mr Imaging Referral ID Status Reason Start Date Expiration Date Visits Requested Visits Authorized [id number] Pending Review Auto-Generat ed Referral 09/07/2021 10/07/2022 1 1 Chief Complaint and Reason for Visit Chief Complaint Screening Additional Source Comments INFORMATION SOURCE (unrecogn ized section and content) DATE CREATED AUTHOR 01/02/2021 [facility] DATE CREATED AUTHOR AUTHOR'S ORGANIZ ATION 09/09/2021 [facility] DATE CREATED AUTHOR AUTHOR'S ORGANIZ ATION 02/26/2022 [facility] DATE CREATED AUTHOR AUTHOR'S ORGANIZ ATION 01/19/2023 [facility] DATE CREATED AUTHOR AUTHOR'S ORGANIZ ATION 06/14/2023 [facility] Source Comments (unrecognize d section and content) In the event this informatio n is protected by the Federal Confidentiality of Alcohol and Drug Abuse Patient Records regulations: The Federal rules restrict any use of the information to criminally investigate or prosecute any alcohol or drug abuse patient.[facility] Reason for Visit (unrecogniz ed section and content) Reason Comments Follow Up Care Teams (unrecognized sec tion and content) Health Insurance Assessor Relationship Specialty Start Date End Date Dre Vogel Sr. [address] [place] [address] PCP - General Family Practice 06/23/19 Team Status: Inactive Member Role Status Dates Dre Vogel DO Primary Care Provider, Referring Pr pat Active Referral Self Attending Provider Active Team Status: Active Member Role Status Dates Dre Vogel DO Primary Care Provider Active Team Status: Inactive Member Role Status Dates Miladys Read APRN Attending Provider Active Start: June 08, 2023 End: June 08, 2023 Goals (unrecognized section and content) Goals may be documented in a n alternate sectionGoals may be documented in an alternate sectionNo InformationNo Information FOR RECORDS PERTAINING TO PATIENTS WHO ARE [...] BE BASED ON THE PRIMARY CLINICAL RECORDS. [employer] provides no warranty or guarantee of the accuracy or completeness of information in this document.
[2023-06-17 12:16] LABS: Bacteria Urine TRACE #/HPF (NONE SEEN); Crystals Seen? None Seen #/HPF (None Seen); Mucus Urine NONE SEEN (NONE SEEN); RBC Urine 20-50 #/HPF (0-2); Squamous Epithelial Cell Urine RARE #/LPF (NONE/RARE)
[2023-06-17 12:17] LABS: Cast Seen? SEEN #/LPF (NONE SEEN); WBC Urine 20-50 #/HPF (NONE SEEN)
[2023-06-17 12:18] LABS: Hyaline Casts Urine RARE
--- NOTE | 2023-06-18 13:10 | PC.NURSE ---
Pt calls ER and reports a rash from starting the Keflex prescribed yesterday in the ER. Dr. Hernandez informed and requests that i call in Cipro 250mg orally BID, with a quantity of 14. Pt informed of the plan, and RX called to [facility] in [place].
== END 2023-06-17 12:28 | disposition home or self-care (01) ==
PROVIDERS: Emergency Provider Emergency Medicine
DX: N39.0 Urinary tract infection, site not specified (principal); Z79.82 Long term (current) use of aspirin; Z79.899 Other long term (current) drug therapy
CPT/HCPCS: 81001; 87086; 87150; 87186; 99283

== ENCOUNTER 2023-06-20 18:13 | Emergency (ER) | payer OTHER, SELFPAY ==
--- OUTSIDE RECORDS SUMMARY | 2023-06-20 18:19 | XMS_ITS | CCD ---
Author Name Unknown Address [address] [facility] [address] [place] [id number] Organization [facility] Care Team Providers Care Animal Pathology Teacher Name Role Phone UNKNOWN, PROVIDER Attending Unavailable [...] Unavailable House, DO Erickson Primary Care Provider [phone] DO Dre Vogel Referring Provider [phone] Self, Referral Attending Provider Unavailable JOSE REDD Attending Unavailable MAYKEL Read Attending Provider Miladys Read Unavailable Miladys Read Attending Unavailable Miladys Read Admitting Unavailable Allergies Allergy Classification Reported Allergen(s) Allergy Type Date of Onset Reaction(s) Facility (1 source) Iodine (And Iodine Containting Drugs) Drug allergy (disorder) 12-08-2020 [facility] (3 sources) Iodine Drug Allergy 08-04-2019 Anaphylaxis [facility] (1 source) Iodine Drug Allergy [facility] (1 source) Iodine Drug Allergy 11-06-2020 [facility] Repository Medications Current Medications Medication [...] disease (4 sources) Atherosclerotic heart disease of [place] coronary artery without angina pectoris; Translations: [Coronary atherosclerosis due to lipid rich plaque] Onset: 01-16-2023 Chronic Genitourinary symptoms and ill-defined conditions (2 sources) Dysuria; Translations: [Dysuria] Onset: 06-08-2023 Episodic Other aftercare (1 source) Other nursing home (current) drug therapy; Translations: [OTH INSPECTOR OF WEIGHTS AND MEASURES CURRENT DRUG THERAPY] Onset: 02-26-2022 Episodic Other [...] Facility Urinalysis - AUTOMATEDon Appearance (U) cloudy [employer] Other Bilirubin Ql (U) small [employer] Other Color (U) red [employer] Other Glucose Ql (U) Negative [employer] Other Hemoglobin Ql (U) large [employer] Other Ketones Ql (U) Negative [employer] Other Leukocyte esterase Test strip Ql (U) large [employer] Other Nitrite Ql (U) Negative [employer] Other pH (U) 7.5 [pH] [employer] Other Protein Ql (U) 30 [employer] Other Specific gravity (U) [Rel density] 1.015 [employer] Other Urobilinogen (U) [Mass/Vol] 0.2 mg/dL [employer] Other Urinalysis - AUTOMATED [employer] Other Urine Cultureon 06-08-2023 Bacteria identified Cx Nom (U) ORGANISM: Escherichia coli (O:ESCCOL) [place] Count >100,000 Aerobic ELISA Charge ([id number]) ---- [...] RESISTANT TO ALL B-LACTAM DRUGS. PERFORMED BY: [facility] [address] [place] [address] PATHOLOGIST SEA FOAM KISS MAKER BALWINDER DAVIDSON M.D. Normal [facility] Comment on above: Performed By: #### C UU #### [facility] [address] Office Visiton 01-17-2023 Follow-up visit [id number] Leonora Pike 1965 F Date Provider Department Center 01/17/2023 JOSE OLSON [facility] No family history on file Level of Service:00419 AL OFFICE/OUTPATIENT ESTABLISHED LOW MDM 20-29 MIN Reason for Visit and Comments: Follow-up [363717] - Yearly Normal [facility] CBC AUTO DIFFon 02-24-2022 BASO # 0.1 103/ul Normal 0.0-0.1 [facility] Comment on above: Performed By: #### C BC #### [facility] [address] [place] [address] Dr. Sherley Dubois Basophils/100 WBC (Bld) 0.9 % Normal 0.2-2.0 [facility] Comment on above: Performed By: #### C BC #### [facility] [address] [place] [address] Dr. Sherley Dubois EO # 0.3 103/ul Normal 0.0-0.7 [facility] Comment on above: Performed By: #### C BC #### [facility] [address] [place] [address] Dr. Sherley Dubois Eosinophils/100 WBC (Bld) 5.0 % Normal 0.9-7.0 [facility] Comment on above: Performed By: #### C BC #### [facility] [address] [place] [address] Dr. Sherley Dubois Erythrocyte distribution width (RBC) [Ratio] 12.0 % Normal 11.0-15.0 [facility] Comment on above: Performed By: #### C BC #### [facility] [address] [place] [address] Dr. Sherley Dubois Hematocrit (Bld) [Volume fraction] 43.6 % Normal 36.0-48.0 [facility] Comment on above: Performed By: #### C BC #### [facility] [address] [place] [address] Dr. Sherley Dubois Hemoglobin (Bld) [Mass/Vol] 14.6 g/dL Normal 12.0-16.0 [facility] Comment on above: Performed By: #### C BC #### [facility] [address] [place] [address] Dr. Shelrey Dubois IG # 0.01 10e3/ul Normal 0.00-0.03 [facility] Comment on above: Performed By: #### C BC #### [facility] [address] [place] [address] Dr. Sherley Dubois IG % 0.2 % Normal 0.0-0.5 [facility] Comment on above: Performed By: #### C BC #### [facility] [address] [place] [address] Dr. Sherley Dubois LYMPH # 1.9 103/ul Normal 1.2-3.8 [facility] Comment on above: Performed By: #### C BC #### [facility] [address] [place] [address] Dr. Sherley Dubois Lymphocytes/100 WBC (Bld) 34.2 % Normal 20.5-60.0 [facility] Comment on above: Performed By: #### C BC #### [facility] [address] [place] [address] Dr. Sherley Dubois MANUAL DIFF REQ NO Normal [facility] Comment on above: Performed By: #### C BC #### [facility] [address] [place] [address] Dr. Sherley Dubois MCH (RBC) [Entitic mass] 30.9 pg Normal 26.7-34.0 [facility] Comment on above: Performed By: #### C BC #### [facility] [address] [place] [address] Dr. Sherley Dubois MCHC (RBC) [Mass/Vol] 33.5 g/dL Normal 29.9-35.2 [facility] Comment on above: Performed By: #### C BC #### [facility] [address] [place] [address] Dr. Sherley Dubois MCV (RBC) [Entitic vol] 92.4 fL Normal 81.0-99.0 [facility] Comment on above: Performed By: #### C BC #### [facility] [address] [place] [address] Dr. Sherley Dubois MONO # 0.6 103/ul Normal 0.3-0.8 [facility] Comment on above: Performed By: #### C BC #### [facility] [address] [place] [address] Dr. Sherley Dubois Monocytes/100 WBC (Bld) 10.1 % Normal 1.7-12.0 [facility] Comment on above: Performed By: #### C BC #### [facility] [address] [place] [address] Dr. Sherley Dubois NEUT # 2.8 103/ul Normal 1.4-6.5 [facility] Comment on above: Performed By: #### C BC #### [facility] [address] [place] [address] Dr. Sherley Dubois Neutrophils/100 WBC (Bld) 49.6 % Normal 43.0-75.0 [facility] Comment on above: Performed By: #### C BC #### [facility] [address] [address] [address] Sherley Dubois Platelet mean volume (Bld) [Entitic vol] 9.4 fL Critically low 9.5-13.5 [facility] Comment on above: Performed By: #### C BC #### [facility] [address] [address] [address] Sherley Dubois PLT 214 103/ul Normal 150-450 [facility] Comment on above: Performed By: #### C BC #### [facility] [address] [place] [address] Dr. Sherley Dubois RBC 4.72 106/ul Normal 4.20-5.40 [facility] Comment on above: Performed By: #### C BC #### [facility] [address] [place] [address] Dr. Sherley Dubois WBC 5.6 103/ul Normal 4.0-11.0 [facility] Comment on above: Performed By: #### C BC #### [facility] [address] [place] [address] Dr. Sherley Dubois LIPID PROFILEon 02-24-2022 CHOL-HDL RATIO NORM SEE BELOW Normal [facility] Comment on above: Result Comment: 3.3 - 4.4 LOW RISK 4.4 - 7.1 AVERAGE RISK 7.1 - 11.0 MODERATE RISK >11.0 HIGH RISK Performed By: #### T 4, LIPID, TSH, CMP #### [facility] [address] [place] [address] Dr. Sherley Dubois Cholesterol [Mass/Vol] 137 mg/dL Normal <=200 [facility] Comment on above: Performed By: #### T 4, LIPID, TSH, CMP #### [facility] [address] [place] [address] Dr. Sherley Dubois Cholesterol in HDL [Mass/Vol] 44 mg/dL Normal 40-60 [facility] Comment on above: Performed By: #### T 4, LIPID, TSH, CMP #### [facility] [address] [place], [place] [id number] Dr. Sherley Dubois Cholesterol in LDL [Mass/Vol] 73.6 mg/dL Normal [facility] Comment on above: Performed By: #### T 4, LIPID, TSH, CMP #### [facility] [address] [place] [address] Dr. Sherley Dubois Cholesterol.total/C holesterol in HDL [Mass ratio] 3.1 {ratio} Normal [facility] Comment on above: Performed By: #### T 4, LIPID, TSH, CMP #### [facility] [address] [place] [address] Dr. Sherley Dubois HDL NORMAL > or = 60 mg/dl - LO W CARDIOVASCULAR RISK <40 mg/dl - HIGH CARDIOVASCULAR RISK Normal [facility] Comment on above: Performed By: #### T 4, LIPID, TSH, CMP #### [facility] [address] [place] [address] Dr. Sherley Dubois LDL CALC NORMAL SEE BELOW Normal [facility] Comment on above: Result Comment: <100 mg/dl OPTIMAL 100 - 129 mg/dl NEAR OR ABOVE OPTIMAL 130 - 159 mg/dl BORDERLINE HIGH 160 - 189 mg/dl HIGH >190 mg/dl VERY HIGH Performed By: #### T 4, LIPID, TSH, CMP #### [facility] [address] [place] [address] Dr. Sherley Dubois Triglyceride [Mass/Vol] 97 mg/dL Normal <=150 [facility] Comment on above: Performed By: #### T 4, LIPID, TSH, CMP #### [facility] [address] [place] [address] Dr. Sherley Dubois VLDL CALC 19.4 mg/dL Normal [facility] Comment on above: Performed By: #### T 4, LIPID, TSH, CMP #### [facility] [address] [place] [address] Dr. Sherley Dubois PROF 14(COMP METB)on 022 Albumin [Mass/Vol] 3.9 g/dL Normal 3.4-5.0 [facility] Comment on above: Performed By: #### T 4, LIPID, TSH, CMP #### [facility] [address] [place] [address] Dr. Sherley Dubois Albumin/Globulin [Mass ratio] 1.3 {ratio} Normal [facility] Comment on above: Performed By: #### T 4, LIPID, TSH, CMP #### [facility] [address] [place] [address] Dr. Sherley Dubois ALP [Catalytic activity/Vol] 95 U/L Normal 46-116 [facility] Comment on above: Performed By: #### T 4, LIPID, TSH, CMP #### [facility] [address] [place] [address] Dr. Sherley Dubois ALT [Catalytic activity/Vol] 37 U/L Normal 14-59 [facility] Comment on above: Performed By: #### T 4, LIPID, TSH, CMP #### [facility] [address] [place] [address] Dr. Sherley Dubois Anion gap [Moles/Vol] 9.7 mmol/L Normal [facility] Comment on above: Performed By: #### T 4, LIPID, TSH, CMP #### [facility] [address] [place] [address] Dr. Sherley Dubois AST [Catalytic activity/Vol] 16 U/L Normal 15-37 [facility] Comment on above: Performed By: #### T 4, LIPID, TSH, CMP #### [facility] [address] [place] [address] Dr. Sherley Dubois Bilirubin [Mass/Vol] 0.4 mg/dL Normal 0.2-1.0 [facility] Comment on above: Performed By: #### T 4, LIPID, TSH, CMP #### [facility] [address] [place] [address] Dr. Sherley Dubois Calcium [Mass/Vol] 9.1 mg/dL Normal 8.5-10.1 [facility] Comment on above: Performed By: #### T 4, LIPID, TSH, CMP #### [facility] [address] [place] [address] Dr. Shelrey Dubois Chloride [Moles/Vol] 108 mmol/L Critically high 98-107 [facility] Comment on above: Performed By: #### T 4, LIPID, TSH, CMP #### [facility] [address] [address] [address] Sherley Dubois CO2 [Moles/Vol] 29.2 mmol/L Normal 21.0-32.0 [facility] Comment on above: Performed By: #### T 4, LIPID, TSH, CMP #### [facility] [address] [place] [address] Dr. Sherley Dubois Creatinine [Mass/Vol] 0.65 mg/dL Normal 0.55-1.02 [facility] Comment on above: Performed By: #### T 4, LIPID, TSH, CMP #### [facility] [address] [place] [address] Dr. Sherley Dubois EGFR-AF UKRAINIAN >60 Normal >=60 [facility] Comment on above: Performed By: #### T 4, LIPID, TSH, CMP #### [facility] [address] [place] [address] Dr. Sherley Dubois EGFR-NON AF UKRAINIAN >60 Normal >=60 [facility] Comment on above: Performed By: #### T 4, LIPID, TSH, CMP #### [facility] [address] [place] [address] Dr. Sherley Dubois Globulin (S) [Mass/Vol] 3.1 g/dL Normal [facility] Comment on above: Performed By: #### T 4, LIPID, TSH, CMP #### [facility] [address] [place] [address] Dr. Sherley Dubois Glucose [Mass/Vol] 92 mg/dL Normal 74-106 [facility] Comment on above: Performed By: #### T 4, LIPID, TSH, CMP #### [facility] [address] [place] [address] Dr. Sherley Dubois Potassium [Moles/Vol] 3.9 mmol/L Normal 3.5-5.1 [facility] Comment on above: Performed By: #### T 4, LIPID, TSH, CMP #### [facility] [address] [place] [address] Dr. Sherley Dubois Protein [Mass/Vol] 7.0 g/dL Normal 6.4-8.2 [facility] Comment on above: Performed By: #### T 4, LIPID, TSH, CMP #### [facility] [address] [address] [address] Sherley Dubois Sodium [Moles/Vol] 143 mmol/L Normal 136-145 [facility] Comment on above: Performed By: #### T 4, LIPID, TSH, CMP #### [facility] [address] [address] [address] Sherley Dubois Urea nitrogen [Mass/Vol] 12.0 mg/dL Normal 7.0-18.0 [facility] Comment on above: Performed By: #### T 4, LIPID, TSH, CMP #### [facility] [address] [place] [address] Dr. Sherley Dubois Urea nitrogen/Creatinine [Mass ratio] 18.5 mg/mg Normal [facility] Comment on above: Performed By: #### T 4, LIPID, TSH, CMP #### [facility] [address] [place] [address] Dr. Sherley Dubois T4on 02-24-2022 T4 [Mass/Vol] 6.50 ug/dL Normal 4.80-13.90 [facility] Comment on above: Performed By: #### T 4, LIPID, TSH, CMP #### [facility] [address] [place] [address] Dr. Sherley Dubois TSHon 02-24-2022 TSH 3.491 uIU/mL Normal 0.358-3.740 [facility] Comment on above: Performed By: #### T 4, LIPID, TSH, CMP #### [facility] [address] [place] [address] Dr. Sherley Dubois MRI BRAIN WO/W IVCONon [...] This information is taken directly from the telephone order supervisor system. s/p Left retrosigmoid approach for resection. [...] Stable findings of remote left-sided meningioma resection.. [place] extra-axial fluid present along lateral margins of [...] Concordant findings on the post gadolinium scans. Erecting Crane Operator: WENDY Transcribe Date/Time: Sep 05 2021 11:17A Dictated by : TRAN GARCIA MD This examination was interpreted and the report reviewed and electronically signed by: TRAN GARCIA MD on Sep 05 2021 11:27AM EST [id number] Normal [facility] LEONORA PIKE ([id number]) 1965 F Date Time Provider Department 05/25/21 DENISE SANDERS [facility] During your visit today, we [...] Date Reviewed: 09/07/2020 Reviewed by: Chele Sanchez, underground roof bolter - Fully Assessed Reason for Visit: Patient Question [3325] Prescriptions as of 05/25/2021 - diclofenac, EC, [...] Status:Closed by DENISE SANDERS on 05/25/21 Normal [facility] Cardiovascular Lab Reporton 12-08-2020 Cardiovascular Lab Report [facility] Patient Name: Leonora Pike MR #: [id number] [facility] Physician: Reginaldo Thrasher M.D. Department of Service Date: 12/08/2020 Medicine Birthdate: 1965 Division of Room #: CC Cardiology Adult Cardiovascular Services [place] [address] Cardiovascular Laboratory Report INDICATION: The patient is [...] signed informed consent. She was brought to bolt labeler in a fasting state. The right wrist area was prepped and draped in usual fashion. Micropuncture technique was used to gain access in the right radial artery and a 6-Bolivian x 11 cm Hydrophilic sheath was advanced. Verapamil was given through the sheath and heparin was administered intravenously. Bilateral selective coronary angiography was then performed using 6-Bolivian JL3.5 and JR5 diagnostic catheters. Catheters were [...] Thrasher M.D. Date Trans: 12/08/2020 11:25 A/diamante [id number] cc: Dre Vogel D.O. [address] [facility] [address] Normal [facility] Vital Signs Date Time Vital Sign Value Performing Clinician Facility 06-08-2023 09:25-0500 Body height 168.91 cm Miladys Read Other [employer] Other 06-08-2023 09:25-0500 Body mass index (BMI) [Ratio] 32.81 kg/m2 Miladys Read Other [employer] Other 06-08-2023 09:25-0500 Body temperature 97.8 [degF] Miladys Read Other [employer] Other 06-08-2023 09:25-0500 Body weight 93.62 kg Miladys Read Other [employer] Other 06-08-2023 09:25-0500 Diastolic blood pressure 79 mm[Hg] Miladys Read Other [employer] Other 06-08-2023 09:25-0500 Respiratory rate 18 /min Miladys Read Other [employer] Other 06-08-2023 09:25-0500 SaO2% (BldA) [Mass fraction] 97 % Miladys Read Other [employer] Other 06-08-2023 09:25-0500 Systolic blood pressure 116 mm[Hg] Miladys Read Other [employer] Other Encounters Encounter Date Encounter Type Care Provider Facility Start: 06-10-2023 End: 06-10-2023 ambulatory Miladys Read Other [employer] Other Start: 06-10-2023 Telephone encounter Miladys Read [facility] [address] Start: 06-08-2023 Office outpatient vi sit 15 minutes Miladys Read [facility] Start: 06-08-2023 End: 06-08-2023 ambulatory Miladys Read Facility:[facility] Start: 06-08-2023 End: 06-08-2023 ambulatory Miladys Read Other [employer] Other Start: 06-08-2023 End: 02-09-2024 Departed Referred FIRE HAZARD INSPECTOR Miladys Read Work Phone: [facility] [place] Work Phone: Start: 01-17-2023 End: 01-17-2023 ambulatory JOSE TRAMAINE [facility] Start: 04-10-2022 End: 04-10-2022 ambulatory DO Dre Vogel Work Phone: [facility] Work Phone: Start: 04-10-2022 End: 04-10-2022 Patient encounter procedure DO Dre Vogel Work Phone: [facility] Start: 02-24-2022 End: 02-25-[address] DRE VOGEL Facility:[facility] Start: 09-07-2021 End: 09-07-2021 ambulatory Denise Sanders FIRE HAZARD INSPECTOR.CLINICAL MANAGER HOME CARE Work Phone: [facility] Comment on above: Benign neoplasm of b rain, unspecified brain region (HCC) Start: 09-07-2021 End: 09-07-2021 Telemedicine consultation with patient Denise Marilyn ASHBYCLINICAL MANAGER HOME CARE Work Phone: [facility] Start: 08-19-[address] DRE VOGEL Facili ty:[facility] Start: 04-30-[address] REGINALDO THRASHER Fac ility:[facility] Start: 03-30-[address] REGINALDO THRASHER Fac ility:[facility] Start: 12-08-2020 End: 12-09-2020 ambulatory PROVIDER UNKNOWN Facility:[facility] Start: 11-25-2020 End: 12-23-2020 ambulatory PROVIDER UNKNOWN Facility:[facility] Procedures Date Procedure Procedure Detail Performing Clinician Start: 04-10-2022 Screening mammograph y of bilateral breasts DO Dre Vogel Work Phone: Start: 03-20-2020 Adult depression scr eening assessment Denise Marilyn FIRE HAZARD INSPECTOR.CLINICAL MANAGER HOME CARE Work Phone: Plan of Treatment Date Care Activity Detail Author Start: 06-08-2023 Bacteria identified in Urine by Culture [facility] Start: 06-03-2023 DIABETES SCREEN DIABETES SCREEN [facility] Start: 07-08-2021 COVID-19 VACCINE (4 - Booster for Pfizer series) COVID-19 VACCINE (4 - Booster for Pfizer series) [facility] Start: 03-20-2021 Adult depression screening assessment DEPRESSION SCREENING [facility] Start: 2014 SHINGRIX VACCINE (1 of 2) SHINGRIX VACCINE (1 of 2) [facility] Start: 2009 COLOGUARD (FIT-DNA) COLOGUARD (FIT-D NA) [facility] Start: 2009 Colonoscopy COLONOSCOPY [facility] Start: 2009 COLORECTAL CANCER SCREENING COLORECTAL CANCER SCREENING [facility] Start: [address] COLONOGRAPHY [facility] Start: 2009 FECAL OCCULT BLOOD FECAL OCCULT BLOO D [facility] Start: 2009 LIPID SCREEN LIPID SCREEN [facility] Start: 2009 SIGMOIDOSCOPY SIGMOIDOSCOPY [facility] Start: 2004 Mammography MAMMOGRAM [facility] Start: 1994 HPV TESTING HPV TESTING [facility] Start: 1985 PAP TESTING PAP TESTING [facility] Start: 09-25-1983 Urine microalbumin profile DTAP,TDAP,TD (1 - Tdap) [facility] Start: 1982 HEPATITIS C SCREENING HEPATITIS C SC REENING [facility] Start: 1982 HIV SCREENING HIV SCREENING [facility] End: 10-07-2022 Mri brain brain stem w/o w/contrast material MRI BRAIN WO/W IVCON Radiology Routine Benign neoplasm of brain, unspecified brain region (HCC) 1 Occurrences starting 09/07/2021 until 10/07/2022 [facility] Work Phone: Comment on above: 1 Occurrences starti ng 09/07/2021 until 10/07/2022 Payers Date Payer Category Payer Unknown [employer] PPO OOS [id number] 2019-Present [phone] [address] [place] [address] PPO [id number] 1965 Unknown [id number] 1965 Unknown [id number] 1965 Unknown [id number] 1965 Unknown [id number] 1965 Unknown [id number] 1965 Unknown [id number] 1960 Self-pay 1959 Unknown [id number] 1960 Unknown [id number] Unknown [id number] Social History Date Type Detail Facility Start: 10-16-[address] [facility] Work Phone: Start: 12-26-2017 End: 10-01-2019 History of tobacco use Current smoker [facility] Work Phone: End: 10-01-2019 History of tobacco use Cigarette Smoker [facility] Work Phone: Start: 10-16-2019 Cigarettes smoked current (pack per day) - Reported 0.5 [facility] Start: 10-16-2019 Tobacco use and exposure Smokeless tobacco non-user [facility] Work Phone: Start: 09-09-2019 History SDOH Alcohol Comment Rare [facility] [facility] Start: 10-03-2019 History SDOH Financial 5 [facility] Start: 10-03-2019 History SDOH Food Worry 1 [facility] Start: 10-03-2019 History SDOH Transpo rt Med 2 [facility] Start: 1965 Sex Assigned At Not on file [facility] Start: 08-26-2021 End: 09-05-2021 Exposure to SARS-CoV-2 (event) Not sure [facility] Start: 1965 Sex Assigned At Female F [facility] Sex Assigned At Sex Assigned At Bir th [employer] Other Medical Equipment Procedure Code Equipment Code Equipment Original Text Equipment Identifier Dates Graft Duragen Pl us Bovine Collagen Matrix 2x2in Soft Tissue Patch - [id number] Start: 10-02-2019 Plate Sheridan Neuro Iii 42mm Small Round .3mm Bone Closed Outer Frame - [id number] Start: 10-02-2019 Screw 1.5mm 4mm Bone Self Drill Cross Pin Craniomaxillofacial - [id number] Start: 10-02-2019 Clinical Notes 08-04-2019 to 06-08-2023 [...] understanding and is agreeable to treatment plan. [employer] Other [id number] NoteContinamy cm Reviewed labs from 01/2022 and liver function was normal Lipid levels were well controlled, States she will be having annual labs soon for workUn[facility] NoteCoronary artery disease is stable without concerning symptoms Continue GDMT- ASA, toprol, crestor, imdur continue risk factor modifications- heart healthy diet, regular exercise as tolerated and continue all medications.[facility] 01-17-2023 NoteUTP CARDIOLOGY PROGRESS NOTE HPI: [...] the past 12 (more content not included)... [facility]05-11-2022 NoteHNO ID: [id number] Author: Denise Sanders APRN.CLINICAL MANAGER HOME CARE Service: ? Author Type: Nurse Practitioner Type: Progress Notes Filed: 09/07/2021 11:07 AM Note Text: Neurological [place] [facility] NEURO-ONCOLOGY VIRTUAL VISIT NOTE This is a virtual visit using Checkr video visit. It required patient-provider interaction for [...] need to be cleared by physician through [facility] before returning to work.? 11/19/20 Presents today for follow-up with new MRI brain for review. Since last visit, she continues to have dizziness induced by turning head side to side. 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 She did vestibular PT and did not have success. She is seeing an pharmacy intake technician for hearing loss and ENT. She received [...] (HCC) 09/26/1979 Low Grade s/p Craniotomy at [facility] by Dr. 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 Rafal Shay FAMILY HISTORY Problem [...] Oriented to p (more content not included)... [facility]05-11-2022 History of Present illness Narrative* Denise Sanders APRN.CLINICAL MANAGER HOME CARE - 09/07/2021 11:00 AM EDT Images from the original note were not included. Neurological [place] [facility] NEURO-ONCOLOGY VIRTUAL VISIT NOTE This is a virtual visit using Checkr video visit. It required patient-provider interaction for [...] not have success. She is seeing an pharmacy intake technician for hearing loss and ENT. She received [...] (HCC) 09/26/1979 Low Grade s/p Craniotomy at [facility] by Dr. 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 This information is taken directly from the telephone order supervisor system. s/p Left retrosigmoid approach for resection. [...] Stable findings of remote left-sided meningioma resection.. [place] extra-axial fluid present along lateral margins of [...] Concordant findings on the post gadolinium scans. Erecting Crane Operator: WENDY Transcribe Date/Time: Sep 05 2021 [...] which included preparing to see the patient, [id number] patient care, completing clinical documentation, obtaining and/or reviewing separately obtained history, counseling and educating the patient/family/caregiver, ordering medications, marlys ts, or procedures, communicating results to the patient/family/caregiver and care coordination (notseparately reported). Denise Sanders APRN.CNP Certified Nurse Practitioner cc: Reynold Goss MD--EPIC documented in this encounterUniversity [facility] NoteHNO ID: [id number] Author: FRANSICO Carmona Service: ? 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 taper plan documented as of this encounter (statuses as of 09/07/2021) [facility] Diagnosis Benign neoplasm of brain, unspecified brain region (HCC) documented in this encounter [facility] noteNo assessment information availableOur Lady Of [facility] Work Phone: Evaluation noteNo InformationNortSaint John Vianney Hospital [employer] Other History general Narrative - Reported* Type Description Date Medical History osteopenia Surgical History brain surgery 2019 [facility] [employer] Other Summary Purpose Family History No Family History Records Found Relationship Condition Age at Onset Recorded Date/T watson father History of stroke Unknown Heart disease Unknown Not Specified Malignant neoplasm Unknown Malignant neoplasm of breast Unknown sister Parkinson's disease Unknown Advance Directives No Advanced Directives Records FoundDocuments on File Type Date Recorded 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 Advance Directive(s) 10/01/2019 12:10 PM Advance Directive(s) 09/17/2019 1:41 PM Advance Directive Response Recorded Date/ Time Advance Directives No August 03 4:25pm Reason for Referral Specialty Diagnoses / Procedures Referred By Adam t Referred To Contact MR IMAGING Diagnoses Benign neoplasm of brain, unspecified brain region (HCC) Procedures MRI BRAIN WO/W IVCON MRI BRAIN BRAIN STEM W/O W/CONTRAST MATERIAL Denise Sanders APRN.CLINICAL MANAGER HOME CARE [address] [place] [address] Mr Imaging Referral ID Status Reason Start Date Expiration Date Visits Requested Visits Authorized [id number] Pending Review Auto-Generat ed Referral 09/07/2021 10/07/2022 1 1 Chief Complaint and Reason for Visit Chief Complaint Screening Additional Source Comments INFORMATION SOURCE (unrecogn ized section and content) DATE CREATED AUTHOR 01/02/2021 [facility] DATE CREATED AUTHOR AUTHOR'S ORGANIZ ATION 09/09/2021 [facility] DATE CREATED AUTHOR AUTHOR'S ORGANIZ ATION 02/26/2022 [facility] DATE CREATED AUTHOR AUTHOR'S ORGANIZ ATION 01/19/2023 [facility] DATE CREATED AUTHOR AUTHOR'S ORGANIZ ATION 06/17/2023 [facility] Source Comments (unrecognize d section and content) In the event this informatio n is protected by the Federal Confidentiality of Alcohol and Drug Abuse Patient Records regulations: The Federal rules restrict any use of the information to criminally investigate or prosecute any alcohol or drug abuse patient.[facility] Reason for Visit (unrecogniz ed section and content) Reason Comments Follow Up Care Teams (unrecognized sec tion and content) 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 [address] [place] [address] PCP - General Family Practice 06/23/19 Team [...] BE BASED ON THE PRIMARY CLINICAL RECORDS. [facility] provides no warranty or guarantee of the accuracy or completeness of information in this document.
[2023-06-20 18:29] VITALS: BP 137/79; PULSE 88; RESP 16; TEMP 36.6; O2SAT 98; BMI 32.8
[2023-06-20 19:07] LABS: Basophils Percent Auto 0.4 % (0.2-2.0); Eosinophils Absolute Auto 0.4 10^3/uL (0.0-0.7); Eosinophils Percent Auto 5.5 % (0.9-7.0); Immature Granulocytes Abs Auto 0.01 10^3/uL (0.00-0.03); Immature Granulocytes Pct Auto 0.1 % (0.0-0.5); Lymphocytes Percent Auto 26.3 % (20.5-60.0); Mean Corpuscular HGB Conc 33.3 g/dL (29.9-35.2); Mean Corpuscular Hemoglobin 30.2 pg (26.7-34.0); Mean Corpuscular Volume 90.7 fL (81.0-99.0); Mean Platelet Volume 10.1 fL (9.5-13.5); Monocytes Absolute Auto 0.9 10^3/uL (0.3-0.8); Monocytes Percent Auto 11.7 % (1.7-12.0); Neutrophils Absolute Auto 4.1 10^3/uL (1.4-6.5); Platelet Count 206 10^3/uL (150-450); Red Blood Count 4.63 10^6/uL (4.20-5.40); Red Cell Distribution Width 12.7 % (11.0-15.0); White Blood Count 7.4 10^3/uL (4.0-11.0)
[2023-06-20] MEDS: FAMOTIDINE 20 MG TABLET PO (19:19)
[2023-06-20 19:21] LABS: INR 0.97; Prothrombin Time 10.3 sec (9.0-11.6)
[2023-06-20] MEDS: METHYLPREDNISOLONE SOD SUCC PF 125 MG/2 ML VIAL IVP (19:23)
[2023-06-20] MEDS: DIPHENHYDRAMINE HCL 50 MG/ML (1ML) VIAL 25 MG IV (19:23)
[2023-06-20 19:44] LABS: Anion Gap 14.6; BUN Creatinine Ratio 19.8; Calcium 8.8 mg/dL (8.5-10.1); Chloride 108 mmol/L (98-107); Estimated GFR (African America >60 (>=60); Estimated GFR (Non-African Ame >60 (>=60); Glucose 106 mg/dL (74-106); Potassium 3.6 mmol/L (3.5-5.1); Sodium 144 mmol/L (136-145)
--- NOTE | 2023-06-20 19:52 | ED_ITS ---
HPI - Allergic Reaction General Chief complaint: Allergic Reaction Stated complaint: allergic reaction Time Seen by Provider: 06/20/23 18:38 Source: patient Mode of arrival: walk-in History of Present Illness HPI narrative: 57 year old female presents to the ED for a generalized rash. Onset was Sunday06/18/23. On Sunday06/17/23 she was placed on Keflex for a UTI. On Sunday after development of the rash she was advised to discontinue the Keflex and was placed on Cipro. States her rash worsened Sunday night. The itching has since stopped. Denies fever, chills, weakness, SOB. Denies difficulty swallowing. Related Data Home Medications Medication Instructions Recorded Confirmed aspirin 81 mg tablet,delayed 81 mg PO DAILY 06/17/23 06/17/23 release isosorbide mononitrate 30 mg 30 mg PO DAILY 06/17/23 06/17/23 tablet,extended release 24 hr metoprolol succinate 25 mg 25 mg PO DAILY 06/17/23 06/17/23 tablet,extended release 24 hr rosuvastatin 40 mg tablet 40 mg PO DAILY 06/17/23 06/17/23 Previous Rx's Medication Instructions Recorded cephalexin 500 mg capsule 500 mg PO TID 7 days #21 caps 06/17/23 prednisone 20 mg tablet 40 mg (2 x 20 mg) PO DAILY 5 days 06/20/23 #10 tabs Allergies Allergy/AdvReac Type Severity Reaction Status Date / Time cephalexin [From Keflex] Allergy Mild Rash Verified 06/20/23 18:33 Review of Systems ROS Constitutional Denies: fever or chills Ears, nose, mouth, and throat Denies: throat pain, neck pain, throat swelling or difficulty swallowing Cardiovascular Denies: chest pain Respiratory Denies: shortness of breath, cough, wheezing or stridor Musculoskeletal Denies: back pain or neck pain Integumentary/Breast Reports: rash and itching Neurological Denies: headache, weakness in extremities or dizziness PFSH PFSH Social History Smoking status: Never smoker Exam Constitutional Vital Signs, click to edit/add: Last Vital Signs Temp 97.8 F 06/20/23 18:29 Pulse 88 06/20/23 18:29 Resp 16 06/20/23 18:29 BP 137/79 06/20/23 18:29 Pulse Ox 98 06/20/23 18:29 O2 Del Method Room Air 06/20/23 18:29 Common normals: no apparent distress and oriented x3 General appearance: cooperative Other: Maculopapular rash noted to extremities, abdomen. No rash noted to upper back or face. It is worse on the legs. Rash appears purpuric on the legs. No crusting or drainage. No vesicular lesions. HENMT Common normals: normocephalic Mouth: oral and palatal mucosa normal, lip normal and tongue normal Throat: posterior oropharynx normal, tonsils normal and uvula midline Eye Common normals: conjunctivae normal and no scleral icterus Neck & C-Spine Common normals: supple Chest Chest: symmetrical chest wall rise Respiratory Common normals: normal respiratory effort, no use of accessory muscles and clear to auscultation bilaterally Effort & inspection: able to speak in complete sentences and symmetric chest movement Cardio Common normals: regular rate and regular rhythm Neuro Common normals: oriented x3 Sensorium/orientation: awake and alert Speech: speech normal Course Vital Signs Vital signs: Vital Signs Temperature 97.8 F 06/20/23 18:29 Pulse Rate 88 06/20/23 18:29 Respiratory Rate 16 06/20/23 18:29 Blood Pressure 137/79 06/20/23 18:29 Pulse Oximetry 98 06/20/23 18:29 Oxygen Delivery Method Room Air 06/20/23 18:29 Temperature 97.8 F 06/20/23 18:29 Pulse Rate 88 06/20/23 18:29 Respiratory Rate 16 06/20/23 18:29 Blood Pressure 137/79 06/20/23 18:29 Pulse Oximetry 98 06/20/23 18:29 Oxygen Delivery Method Room Air 06/20/23 18:29 MDM - Allergic Reaction MDM Narrative Medical decision making narrative: CBC, CMP, INR were unremarkable. She has discontinued the Keflex. Her urine culture from the previous visit is pending. A prescription was provided for prednisone. Follow up with pcp for a recheck, further evaluation and treatment. Return precautions were discussed. Medical Records Attestation: I reviewed the patient's medical records. Lab Data Attestation: I reviewed the patient's lab results. Labs: Lab Results 06/20/23 06/20/23 Range/Units 18:59 19:24 WBC 7.4 (4.0-11.0) 10^3/uL RBC 4.63 (4.20-5.40) 10^6/uL Hgb 14.0 (12.0-16.0) g/dL Hct 42.0 (36.0-48.0) % MCV 90.7 (81.0-99.0) fL MCH 30.2 (26.7-34.0) pg MCHC 33.3 (29.9-35.2) g/dL RDW 12.7 (11.0-15.0) % Plt Count 206 (150-450) 10^3/uL MPV 10.1 (9.5-13.5) fL Neut % (Auto) 56.0 (43.0-75.0) % Lymph % (Auto) 26.3 (20.5-60.0) % [place] % (Auto) 11.7 (1.7-12.0) % Eos % (Auto) 5.5 (0.9-7.0) % Baso % (Auto) 0.4 (0.2-2.0) % Neut # (Auto) 4.1 (1.4-6.5) 10^3/uL Lymph # (Auto) 2.0 (1.2-3.8) 10^3/uL [place] # (Auto) 0.9 H (0.3-0.8) 10^3/uL Eos # (Auto) 0.4 (0.0-0.7) 10^3/uL Baso # (Auto) 0.0 (0.0-0.1) 10^3/uL Abs Immat Gran (auto) 0.01 (0.00-0.03) 10^3/uL Imm/Tot Granulo (auto) 0.1 (0.0-0.5) % PT 10.3 (9.0-11.6) sec INR 0.97 Sodium 144 (136-145) mmol/L Potassium 3.6 (3.5-5.1) mmol/L Chloride 108 H (98-107) mmol/L Carbon Dioxide 25.0 (21.0-32.0) mmol/L Anion Gap 14.6 BUN 17.0 (7.0-18.0) mg/dL Creatinine 0.86 (0.55-1.02) mg/dL Est GFR ( Amer) >60 (>=60) Est GFR (Non-Af Amer) >60 (>=60) BUN/Creatinine Ratio 19.8 Glucose 106 (74-106) mg/dL Calcium 8.8 (8.5-10.1) mg/dL Discharge Plan Discharge Chief Complaint: Allergic Reaction Clinical Impression: Allergic reaction Patient Disposition: Home, Self-Care Time of Disposition Decision: 19:58 Condition: Good Mode of Transportation: Private Vehicle Prescriptions / Home Meds: New prednisone 20 mg tablet 40 mg PO DAILY 5 Days Qty: 10 0RF No Action aspirin 81 mg tablet,delayed release (DR/EC) 81 mg PO DAILY isosorbide mononitrate 30 mg tablet extended release 24 hr 30 mg PO DAILY metoprolol succinate 25 mg tablet extended release 24 hr 25 mg PO DAILY rosuvastatin 40 mg tablet 40 mg PO DAILY cephalexin 500 mg capsule 500 mg PO TID 7 Days Qty: 21 0RF Instructions: Acute Rash (ED), General Allergic Reaction (ED) Additional Instructions: Continue the Cipro as directed. If your rash worsens return to the ER and discontinue the Cipro. If you develop shortness of breath, fever, difficulty swallowing return to the ER immediately. Stand Alone Forms: Portal Instructions Referrals: Physician,Non-Staff, MD [Primary Care Provider] - 1 week Discharge Date/Time: 06/20/23 20:15
[2023-06-20 20:15] VITALS: BP 130/80; PULSE 88; RESP 18; O2SAT 100
== END 2023-06-20 20:15 | disposition home or self-care (01) ==
PROVIDERS: Nurse Practitioner Family; Emergency Provider Emergency Medicine
DX: L27.0 Generalized skin eruption due to drugs and medicaments taken internally (principal); T36.1X5A Adverse effect of cephalosporins and other beta-lactam antibiotics, initial encounter; Z79.82 Long term (current) use of aspirin; N39.0 Urinary tract infection, site not specified
CPT/HCPCS: 36415; 80048; 85025; 85610; 96374; 96375; 99284; J1200; J2930

== ENCOUNTER 2025-01-14 08:33 | Outpatient (OUT) | payer OTHER, SELFPAY ==
--- OUTSIDE RECORDS SUMMARY | 2025-01-14 08:37 | XMS_ITS | CCD ---
Author Organization [facility] Care Team Providers Care Phlebotomist Medical Lab Assistant Name Role Phone UNKNOWN, PROVIDER Attending Unavailable UNKNOWN, PROVIDER Admitting Unavailable HOUSE, DRE Referring Unavailable HOUSE, DRE Primary Care Unavailable UNKNOWN, PROVIDER Attending Unavailable UNKNOWN, PROVIDER Admitting Unavailable SELF, REFERRED Referring Unavailable SELF, REFERRED Primary Care Unavailable House Sr., Dre Fernandes Primary Care Provider ANNA MARIE, DR HAIR Attending Unavailable HOUSE, DR ERICKSON [...] Referring Provider Self, Referral Attending Provider Unavailable MAYKEL Read Attending Provider Miladys Read Unavailable Randolph Sr., Dre ANN Primary Care Provider REGINALDO THRASHER Attending Unavailable NURIS, EMILY Attending Unavailable DRE VOGEL SR Primary Care Unavailable NURIS, EMILY Referring Unavailable DRE VOGEL SR Primary Care Unavailable Huong Elizabeth MD Primary Care Provider Self, Referral Attending Provider Unavailable Huong Elizabeth MD Primary Care Provider Huong Elizabeth MD Referring Provider [phone] Miladys Read Admitting Unavailable Miladys Read Attending Unavailable Self, Referral Admitting Unavailable Self, Referral Attending Unavailable Huong Elizabeth Primary Care Unavailable Huong Elizabeth Referring Unavailable HUONG ELIZABETH Unavailable HUONG ELIZABETH Unavailable JEREMY MACIAS Attending Unavailable JEREMY MACIAS Referring Unavailable IRINALÓPEZ LISSETT Chairez Attending Unavailable JEREMY MACIAS S Referring Unavailable JEREMY MACIAS S Attending Unavailable JEREMY MACIAS S Attending Unavailable JEREMY MACIAS S Attending Unavailable Allergies Allergy Classification Reported Allergen(s) Allergy Type Date of Onset Reaction(s) Facility (1 source) Iodine (And Iodine Containting Drugs) Drug allergy (disorder) 12-08-2020 [facility] Repository (10 sources) Iodine; Translations: [IODINE] Drug Allergy 08-04-2019 Anaphylaxis [facility] (1 source) Iodine Drug Allergy [facility] Repository (17 sources) Cephalexin; Translations: [CEPHALEXIN] Drug Allergy 01-25-2024 [facility] Repository (1 source) Iodine Drug Allergy 11-06-2020 [facility] Repository Medications Current Medications Medication Drug Class(es) Dates Sig (Normalized) Sig (Original) aspirin 81 mg delayed release oral tablet (18 sources) Platelet Aggregation Inhibitor, Nonsteroidal Anti-inflammatory Drug Start: 01-24-2024 take 1 tablet by mouth once daily aspirin 81 MG EC tablet Take 1 tablet by mouth Daily 01/24/2024 Active Aspirin EC Activ e diclofenac sodium 75 mg delayed release oral tablet (6 sources) Nonsteroidal Anti-inflammatory Drug Start: 01-23-2020 take 1 tablet by mouth once daily diclofenac, EC, (VOLTAREN) 75 mg EC tablet Take 75 mg by mouth once daily. 01/23/2020 Active Comment on above: Take 75 mg by mouth once daily. iv contrast (will be provided with radiology test) (2 sources) Start: 11-14-2023 End: 11-15-2023 inject 1 dose intravenously once iv contrast [...] contrast administration guidelines link 1 Each 0 11/14/2023 11/15/2023 Active Start: 09-07-2021 End: 09-08-2021 inject 1 dose [...] in the MR contrast administration guidelines link ammonium lactate 120 mg/ml topical cream (12 sources) Start: 04-18-20 24 End: 04-18-20 ammonium lactate (Amlactin) 12 % cream Indications: Porokeratosis Apply topically Daily 140 g 3 04/18/2024 04/18/2025 Active meloxicam 15 mg oral tablet (7 sources) Nonsteroidal Anti-inflammatory Drug Start: 12-25-19 End: 03-24-20 take 1 tablet by mouth once daily meloxicam (Mobic) 15 MG tablet Indications: Primary osteoarthritis of right ankle Take 1 tablet (15 mg) by mouth Daily 90 tablet 12/24/2024 03/24/2025 Active Start: 09-08-2024 End: 12-07-2024 take 1 tablet by mouth once daily meloxicam (Mobic) 15 MG tablet Indications: Primary osteoarthritis of both ankles Take 1 tablet (15 mg) by mouth Daily 90 tablet 09/08/2024 12/07/2024 Active Start: 08-08-2024 End: 08-29-2024 take 1 tablet by mouth once daily meloxicam (Mobic) 15 MG tablet Indications: Primary osteoarthritis of both ankles Take 1 tablet (15 mg) by mouth Daily for 21 days 21 tablet 08/08/2024 08/29/2024 Active methylPREDNISolone (8 sources) Corticosteroid Start: 08-08-2024 End: 12-24-2024 methylPREDNISolone (Medrol Dospak) 4 MG tablets Indications: Primary osteoarthritis of both ankles Take as directed on package. 21 tablet 08/08/2024 12/24/2024 Discontinued (Therapy completed) Start: 08-08-2024 methylPREDNISo lone (Medrol Dospak) 4 MG tablets Indications: Primary osteoarthritis of both ankles Take as directed on package. 21 tablet 08/08/2024 Active methylprednisolone 4 mg tablets in a dose pack (1 source) End: 10-16-2024 methylprednisolone 4 mg tablets in a dose pack TAKE BY MOUTH DIRECTED ON PACKAGE 10/16/2024 completed Not Available Not Available Not Available 24 hr metoprolol succinate 25 mg extended release oral tablet (18 sources) beta-Adrener gic Ki Start: 01-24-2024 take 1 tablet by mouth once daily metoprolol succinate XL (Toprol-XL) 25 MG 24 hr tablet Take 1 tablet by mouth Daily 01/24/2024 Active Multivitamin capsule (6 sources) take 1 capsule by mouth once daily Multivitamin capsule Take 1 capsule by mouth once daily. Active take 1 capsule by mouth once kaya ly Multivitamin capsule Take 1 capsule by mouth once daily. 0 Active Comment on above: Take 1 capsule by [facility] once daily. nitrofurantoin, macrocrystals 25 mg / nitrofurantoin, monohydrate 75 mg oral capsule (4 sources) Nitrofuran Antibacterial Start: 06-08-19 End: 04-16-20 24 take 1 capsule by mouth every twelve hours Macrobid 100 MG 1 capsule with food Orally every 12 hrs for 7 days May, Active rosuvastatin calcium 40 mg oral tablet (18 sources) HMG-CoA Reductase Inhibitor Start: 01-24-20 take 1 tablet by mouth once daily rosuvastatin (Crestor) 40 MG tablet Take 1 tablet by mouth Daily 01/24/2024 Active terbinafine 250 mg oral tablet (7 sources) Allylamine Antifungal Start: 11-28-19 20 take 1 tablet by mouth once daily terbinafine HCl (LAMISIL) 250 mg tablet Take 250 mg by mouth once daily. 11/28/2019 Active Comment on above: Take 250 mg by mouth once daily. Completed/Discontinued Medications Medication Drug Class(es) Dates Sig (Normalized) Sig (Original) cephalexin 500 mg oral capsule (2 sources) Cephalosporin Antibacterial End: 04-16-2024 take 1 capsule by mouth three times daily cephalexin 500 mg capsule TAKE 1 CAPSULE BY MOUTH THREE TIMES DAILY 04/16/2024 completed Not Available Not Available Not Available ciprofloxacin 500 mg oral tablet (2 sources) Quinolone Antimicrobial End: 04-16-2024 take 0.5 tablet by mouth twice daily ciprofloxacin 500 mg tablet TAKE 1/2 (ONE-HALF) OF A TABLET BY MOUTH TWICE DAILY 04/16/2024 completed Not Available Not Available Not Available 24 hr isosorbide mononitrate 30 mg extended release oral tablet (4 sources) Nitrate Vasodilator End: 04-16-2024 take 1 tablet by mouth every twenty-four hours isosorbide mononitrate ER 30 mg tablet,extended release 24 hr Oral 04/16/2024 completed Encounter Date: 10/24/2023 Status: 'Taking'; Not Available Not Available Not Available take 1 tablet by margaux th every twenty-four hours Isosorbide Mononitrate ER 30 MG 1 tablet in the morning Orally Once a day Active predniSONE 20 mg oral tablet (2 sources) End: 04-16-2024 take 2 tablets by mouth once daily prednisone 20 mg tablet TAKE 2 TABLETS BY MOUTH DAILY 04/16/2024 completed Not Available Not Available Not Available Problems Active Problems Problem Classification Problem Date Documented Date Episodic/Chronic Acquired foot deformities (4 sources) Acquired varus deformity of right ankle; Translations: [Valgus deformity, not elsewhere classified, right ankle] 08-08-2024 Episodic Acquired foot deformities (2 sources) Acquired valgus deformity of left ankle; Translations: [Valgus deformity, not elsewhere classified, left ankle] 08-08-2024 Episodic Cancer of brain and nervous system (2 sources) Malignant neoplasm of brain Chronic Coronary atherosclerosis and other heart disease (5 sources) Atherosclerotic heart disease of [place] coronary artery without angina pectoris; Translations: [Atherosclerosis of coronary artery without angina pectoris] Onset: 01-25-2024 Resolved: 10-16-2024 Chronic Disorders of lipid metabolism (5 sources) Mixed hyperlipidemia; Translations: [Hyperlipidemia] Onset: 01-17-2023 Resolved: 10-16-2024 Chronic Essential hypertension (5 sources) Essential hypertension; Translations: [Essential (primary) hypertension] Onset: 10-13-2024 Resolved: 10-16-2024 Chronic Heart valve disorders (2 sources) Cardiac murmur, unspecified; Translations: [Cardiac murmur, unspecified] Onset: 01-25-2024 Episodic Osteoarthritis (6 sources) Primary osteoarthritis of ankle; Translations: [Primary osteoarthritis, right ankle and foot] 08-08-2024 Chronic Other acquired deformities (2 sources) Equinus contracture of the ankle; Translations: [Contracture, left ankle] 08-08-2024 Chronic Other acquired deformities (4 sources) Equinus contracture of the ankle; Translations: [Contracture, right ankle] 08-08-2024 Chronic Other aftercare (1 source) Other prison (current) drug therapy; Translations: [OTH SNF CURRENT DRUG THERAPY] Onset: 02-26-2022 Episodic Other and unspecified benign neoplasm (2 sources) Benign neoplasm of brain; Translations: [Benign neoplasm of brain, unspecified] Chronic Other and unspecified benign neoplasm (8 sources) Neoplasm of meninges; Translations: [Benign neoplasm of meninges, unspecified] Onset: 08-04-2019 10-03-2019 Chronic Other and unspecified benign neoplasm (2 sources) Benign neoplasm of meninges; Translations: [Benign neoplasm of meninges, unspecified] 11-14-2023 Chronic Other and unspecified benign neoplasm (1 source) Benign neoplasm of brain, infratentorial; Translations: [Benign neoplasm of brain] 09-02-2021 Chronic Other and unspecified benign neoplasm (1 source) Intracranial meningioma; Translations: [Benign neoplasm of cerebral meninges] 02-27-2024 Chronic Other and unspecified benign neoplasm (1 source) Benign neoplasm of meninges, unspecified; Translations: [Benign neoplasm of meninges (HCC)] Onset: 02-20-2024 Chronic Other and unspecified benign neoplasm (2 sources) Benign neoplasm of cerebral meninges Chronic Other congenital anomalies (4 sources) Porokeratosis; Translations: [Other specified congenital malformations of skin] 04-18-2024 Chronic Other connective tissue disease (4 sources) Pain in right foot; Translations: [Pain in right foot] 04-18-2024 Episodic Other connective tissue disease (2 sources) Pain in left foot; Translations: [Pain in left foot] 04-18-2024 Episodic Other connective tissue disease (2 sources) Pain in both feet; Translations: [Pain in right foot] 08-08-2024 Episodic Other connective tissue disease (2 sources) Tendinitis of right posterior tibial tendon; Translations: [Posterior tibial tendinitis, right leg] 09-08-2024 Episodic Other ear and sense organ disorders (2 sources) Impacted cerumen in left ear; Translations: [Impacted cerumen, left ear] 04-01-2024 Episodic Other injuries and conditions due to external causes (4 sources) Angioneurotic edema, initial encounter; Translations: [ANGIONEUROTIC EDEMA INITIAL ENCNTR] Onset: 02-24-2022 Episodic Other nervous system disorders (2 sources) Difficulty walking; Translations: [Difficulty in walking, not elsewhere classified] 09-08-2024 Chronic Other non-traumatic joint disorders (2 sources) Instability of joint of right ankle; Translations: [Other instability, right ankle] 09-08-2024 Episodic Other screening for suspected conditions (not mental disorders or infectious disease) (1 source) Encounter for screening mammogram for malignant neoplasm of breast; Translations: [Encounter for screening mammogram for malignant neoplasm of breast] Onset: 05-10-2024 Episodic Other skin disorders (2 sources) Ingrowing toenail; Translations: [Ingrowing nail] 04-18-2024 Episodic Unclassified (2 sources) Obesity caused by energy imbalance; Translations: [Obesity, class 1] Onset: 10-16-2024 Resolved: 10-16-2024 Urinary tract infections (1 source) Acute cystitis with hematuria Episodic Past or Other Problems Problem Classification Problem Date Documented Da te Episodic/Chronic Conditions associated with dizziness or vertigo (7 sources) Dysfunction of left vestibular system; Translations: [Labyrinthine dysfunction, left ear] Onset: 11-18-2019 11-18-2019 Episodic Genitourinary symptoms and ill-defined conditions (2 sources) Dysuria; Translations: [Dysuria] Onset: 06-08-2023 Episodic Other nervous system disorders (6 sources) Compression of brain; Translations: [Compression of brain] Onset: 08-04-2019 Resolved: 11-18-2019 11-18-2019 Chronic Other nervous system disorders (6 sources) Cerebral edema; Translations: [Cerebral edema] Onset: 08-04-2019 Resolved: 11-18-2019 11-18-2019 Chronic Results Test Name Value Interpretation Reference Range Facility No Panel Informationon 08-08 Radiology Study observation (narrative) [facility] XR Foot - left 3 [facility] Result: AP, medial oblique, lateral views are weight-bearing. Decreased calcaneal inclination, increased talar declination. Enthesophyte at the insertion of the plantar fascia. No fractures or dislocations noted. Very mild joint space narrowing of the 2nd and 3rd tarsometatarsal joints. [facility] XR Foot - right 3 [facility] Result: AP, medial oblique, lateral views are weight-bearing. Significantly decreased calcaneal inclination. Increased talar declination. First ray elevation. Joint space narrowing most notably of the 2nd and 3rd tarsometatarsal joints. Mild subchondral sclerosis. No significant periarticular osteophytes at this time. No fractures or dislocations. [facility] Appointeddcar e MM screening mammo BI w/CADo n 05-12-2024 MM screening mammo BI w/CAD [facility] [place] [address] [place] [address] Mammography Report Signed Patient: Leonora Bryan MR#: [id number] 5 : 1965 Acct:[id number] Age/Sex: 58 / F ADM Date: 05/10/24 Loc: [place] Room: Type: [facility] Attending Dr: Referral Self Copies to: Huong Elizabeth MD SELF,REFERRAL Ordering Provider: SELF,REFERRAL Date of Service: 05/10/24 MM/MM screening mammo BI w/CAD: SCREENING BILATERAL Screening Full Field digital mammogram with 3-D imaging. Full field digital CC and MLO imaging performed. CAD utilized. COMPARISON: 04/10/2022 HISTORY: Annual screening BREAST COMPOSITION: Scattered fibroglandular densities of the breast parenchyma identified BREAST CALCIFICATIONS: Benign calcifications present. VASCULAR CALCIFICATIONS: None ARCHITECTURAL DISTORTION: None BREAST NODULE: None AXILLARY LYMPH NODES: Normal POSTSURGICAL CHANGES: None MM/MM screening mammo BI w/CAD IMPRESSION: No mammographic evidence of malignancy. Routine follow-up recommended in one year. RESULT CODE: 2 Benign Findings(s) DENSITY CODE: 2 (approximately 25-50% glandular) FOLLOW UP: 1YR THE FALSE-NEGATIVE RATE OF MAMMOGRAPHY IS APPROXIMATELY 10%. IMAGING OF A PALPABLE ABNORMALITY MUST BE BASED ON CLINICAL GROUNDS. PATIENT WAS ENTERED INTO A REMINDER SYSTEM WITH A TARGET DUE DATE FOR THE NEXT MAMMOGRAM. Impression dictated by: Immanuel Vanessa M.D.05/12/2024 7:50 AM Dictation Location: [facility] Transcribed By: [facility] 05/12/24 0750 Dictated By: Immanuel Vanessa DO 05/12/24 0749 Signed By: 05/12/24 0750 Normal [facility] MR Brain WO and W contrast I Von 02-20-2024 IMPRESSION: Postsurgical and chronic changes similar to the prior exam, without evidence for residual or recurrent tumor. Junior Sales Representative: WENDY Transcribe Date/Time: Feb 20 2024 10:09A Dictated by : STEPHANIE FLEMING MD This examination was interpreted and the report reviewed and electronically signed by: STEPHANIE FLEMING MD on Feb 20 2024 10:21AM [facility] DIVISION OF RADIOLOGY * * *Final Report* * * DATE OF EXAM: Feb 20 2024 10:09AM [facility] 0295 - MRI BRAIN WO/W IVCON / PROCEDURE REASON: Benign neoplasm of meninges (HCC) * * * * Physician Interpretation * * * * EXAMINATION: MRI BRAIN WO/W IVCON CLINICAL HISTORY: Benign neoplasm of meninges (HCC) TECHNIQUE: Routine brain MRI protocol without and with contrast including diffusion images. MQ: MRBWOW_2 Contrast: 18 mL Dotarem IV COMPARISON: MRI brain 09/05/2021 RESULT: Acute Change: There is no evidence of restricted diffusion to suggest an acute infarct. Hemorrhage: There is a susceptibility in the resection cavity and along the bilateral cerebellar folia, likely due to chronic blood products. Mass Lesion/ Mass Effect: Again seen are postoperative changes status post left suboccipital craniectomy with encephalomalacia in the left cerebellar hemisphere, with small amount of overlying extra-axial fluid. Adjacent T2/FLAIR hyperintensity again noted, likely due to gliosis. No significant mass effect. Small amount of encephalomalacia in the cerebellar vermis extending to the mesial right cerebellar hemisphere is again noted and unchanged. Additionally, chronic right posterior fossa extra-axial fluid collection is again noted measuring up to 5.2 cm in greatest transverse dimension, also unchanged. No abnormal intracranial enhancement to indicate residual or recurrent tumor. Chronic Change: Scattered patchy areas of increased T2 and FLAIR signal are present in the supratentorial white matter which is a nonspecific finding but likely represents mild chronic microvascular ischemia. Parenchyma: No significant volume loss for age. Ventricles: Ventriculomegaly corresponds to the degree of parenchymal volume loss. Skull Base: Hypothalamic and pituitary region are grossly normal. Craniocervical junction is normal. No significant marrow replacement process. Vasculature: Major intracranial arterial structures, and dural venous sinuses show typical flow void, suggesting patency by spin echo criteria. Other: Minimal mucosal thickening in the right maxillary sinus. Moderate degenerative changes of the left TMJ. The orbits and extracranial soft tissues are unremarkable. DIVISION OF RADIOLOGY Provider, [facility] - 02/20/2024 * * *Final Report* * * DATE OF EXAM: Feb 20 2024 10:09AM [facility] 0295 - MRI BRAIN WO/W IVCON / PROCEDURE REASON: Benign neoplasm of meninges (HCC) * * * * Physician Interpretation * * * * EXAMINATION: MRI BRAIN WO/W IVCON CLINICAL HISTORY: Benign neoplasm of meninges (HCC) TECHNIQUE: Routine brain MRI protocol without and with contrast including diffusion images. MQ: MRBWOW_2 Contrast: 18 mL Dotarem IV COMPARISON: MRI brain 09/05/2021 RESULT: Acute Change: There is no evidence of restricted diffusion to suggest an acute infarct. Hemorrhage: There is a susceptibility in the resection cavity and along the bilateral cerebellar folia, likely due to chronic blood products. Mass Lesion/ Mass Effect: Again seen are postoperative changes status post left suboccipital craniectomy with encephalomalacia in the left cerebellar hemisphere, with small amount of overlying extra-axial fluid. Adjacent T2/FLAIR hyperintensity again noted, likely due to gliosis. No significant mass effect. Small amount of encephalomalacia in the cerebellar vermis extending to the mesial right cerebellar hemisphere is again noted and unchanged. Additionally, chronic right posterior fossa extra-axial fluid collection is again noted measuring up to 5.2 cm in greatest transverse dimension, also unchanged. No abnormal intracranial enhancement to indicate residual or recurrent tumor. Chronic Change: Scattered patchy areas of increased T2 and FLAIR signal are present in the supratentorial white matter which is a nonspecific finding but likely represents mild chronic microvascular ischemia. Parenchyma: No significant volume loss for age. Ventricles: Ventriculomegaly corresponds to the degree of parenchymal volume loss. Skull Base: Hypothalamic and pituitary region are grossly normal. Craniocervical junction is normal. No significant marrow replacement process. Vasculature: Major intracranial arterial structures, and dural venous sinuses show typical flow void, suggesting patency by spin echo criteria. Other: Minimal mucosal thickening in the right maxillary sinus. Moderate degenerative changes of the left TMJ. The orbits and extracranial soft tissues are unremarkable. IMPRESSION IMPRESSION: Postsurgical and chronic changes similar to the prior exam, without evidence for residual or recurrent tumor. Junior Sales Representative: PSCB Transcribe Date/Time: Feb 20 2024 10:09A Dictated by : STEPHANIE FLEMING MD This examination was interpreted and the report reviewed and electronically signed by: STEPHANIE FLEMING MD on Feb 20 2024 10:21AM EST [facility] Radiology Study observation (narrative) [facility] MR Brain WO and W contrast I VOrdered By: [facility] Provider on 02-20-2024 [facility] MRI BRAIN WO/W IVCONon 02-19 MRI BRAIN WO/W IVCON * * *Final Report* * * DATE OF EXAM: Feb 20 2024 10:09AM [facility] 0295 - MRI BRAIN WO/W IVCON / PROCEDURE REASON: Benign neoplasm of meninges (HCC) * * * * Physician Interpretation * * * * EXAMINATION: MRI BRAIN WO/W IVCON CLINICAL HISTORY: Benign neoplasm of meninges (HCC) TECHNIQUE: Routine brain MRI protocol without and with contrast including diffusion images. MQ: MRBWOW_2 Contrast: 18 mL Dotarem IV COMPARISON: MRI brain 09/05/2021 RESULT: Acute Change: There is no evidence of restricted diffusion to suggest an acute infarct. Hemorrhage: There is a susceptibility in the resection cavity and along the bilateral cerebellar folia, likely due to chronic blood products. Mass Lesion/ Mass Effect: Again seen are postoperative changes status post left suboccipital craniectomy with encephalomalacia in the left cerebellar hemisphere, with small amount of overlying extra-axial fluid. Adjacent T2/FLAIR hyperintensity again noted, likely due to gliosis. No significant mass effect. Small amount of encephalomalacia in the cerebellar vermis extending to the mesial right cerebellar hemisphere is again noted and unchanged. Additionally, chronic right posterior fossa extra-axial fluid collection is again noted measuring up to 5.2 cm in greatest transverse dimension, also unchanged. No abnormal intracranial enhancement to indicate residual or recurrent tumor. Chronic Change: Scattered patchy areas of increased T2 and FLAIR signal are present in the supratentorial white matter which is a nonspecific finding but likely represents mild chronic microvascular ischemia. Parenchyma: No significant volume loss for age. Ventricles: Ventriculomegaly corresponds to the degree of parenchymal volume loss. Skull Base: Hypothalamic and pituitary region are grossly normal. Craniocervical junction is normal. No significant marrow replacement process. Vasculature: Major intracranial arterial structures, and dural venous sinuses show typical flow void, suggesting patency by spin echo criteria. Other: Minimal mucosal thickening in the right maxillary sinus. Moderate degenerative changes of the left TMJ. The orbits and extracranial soft tissues are unremarkable. IMPRESSION: Postsurgical and chronic changes similar to the prior exam, without evidence for residual or recurrent tumor. Junior Sales Representative: WENDY Transcribe Date/Time: Feb 20 2024 10:09A Dictated by : STEPHANIE FLEMING MD This examination was interpreted and the report reviewed and electronically signed by: STEPHANIE FLEMING MD on Feb 20 2024 10:21AM EST [id number] Normal [facility] Office Visiton 01-25-2024 Follow-up visit [id number] Leonora Bryan 1965 F Date Provider Department Center 01/25/2024 REGINALDO HARRISON MARCELLE Person Hos Family History Problem Relation Age of Onset Heart attack Father Family Status - Relation Status Age at Father Level of Service:79773 OR OFFICE/OUTPATIENT ESTABLISHED MOD MDM 30 MIN Normal [facility] Urinalysis - AUTOMATEDon Appearance (U) cloudy [facility] Other Bilirubin Ql (U) small [facility] Other Color (U) red [facility] Other Glucose Ql (U) Negative [facility] Other Hemoglobin Ql (U) large [place] [facility] Other Ketones Ql (U) Negative [facility] Other Leukocyte esterase Test strip Ql (U) large [facility] Other Nitrite Ql (U) Negative [facility] Other pH (U) 7.5 [pH] [facility] Other Protein Ql (U) 30 [facility] Other Specific gravity (U) [Rel density] 1.015 [facility] Other Urobilinogen (U) [Mass/Vol] 0.2 mg/dL [facility] Other Urinalysis - AUTOMATED [facility] Other Urine Cultureon 06-08-2023 Bacteria identified Cx Nom (U) ORGANISM: Escherichia coli (O:ESCCOL) [place] Count >100,000 Aerobic ELISA Charge (NMIC56) ---- [...] RESISTANT TO ALL B-LACTAM DRUGS. PERFORMED BY: [place] [address] PATHOLOGIST OIL PRODUCER BALWINDER DAVIDSON M.D. Normal The [facility] Comment on above: Performed By: #### C UU #### [address] CBC AUTO DIFFon 02-24-2022 BASO # 0.1 103/ul Normal 0.0-0.1 The [facility] [place] Comment on above: Performed By: #### C BC #### [facility] [place] [facility] [address] [place] [address] Dr. Sherley Dubois Basophils/100 WBC (Bld) 0.9 % Normal 0.2-2.0 [facility] Comment on above: Performed By: #### C BC #### [facility] [place] [facility] [address] [place] [address] Dr. Sherley Dubois EO # 0.3 103/ul Normal 0.0-0.7 [facility] Comment on above: Performed By: #### C BC #### [facility] [place] [facility] [address] [place] [address] Dr. Sherley Dubois Eosinophils/100 WBC (Bld) 5.0 % Normal 0.9-7.0 The [facility] [place] Comment on above: Performed By: #### C BC #### [facility] [place] [facility] [address] [place] [address] Dr. Sherley Dubois Erythrocyte distribution width (RBC) [Ratio] 12.0 % Normal 11.0-15.0 The [facility] [place] Comment on above: Performed By: #### C BC #### [facility] [place] [facility] [address] [place] [address] Dr. Sherley Dubois Hematocrit (Bld) [Volume fraction] 43.6 % Normal 36.0-48.0 [facility] Comment on above: Performed By: #### C BC #### [facility] [place] [facility] [address] [place] [address] Dr. Sherley Dubois Hemoglobin (Bld) [Mass/Vol] 14.6 g/dL Normal 12.0-16.0 The [facility] [place] Comment on above: Performed By: #### C BC #### [facility] [place] [facility] [address] [place] [address] Dr. Sherley Dubois IG # 0.01 10e3/ul Normal 0.00-0.03 The [facility] [place] Comment on above: Performed By: #### C BC #### [facility] [place] [facility] [address] [place] [address] Dr. Sherley Dubois IG % 0.2 % Normal 0.0-0.5 [facility] Comment on above: Performed By: #### C BC #### [facility] [place] [facility] [address] [place] [address] Dr. Sherley Dubois LYMPH # 1.9 103/ul Normal 1.2-3.8 The [facility] [place] Comment on above: Performed By: #### C BC #### [facility] [place] [facility] [address] [place] [address] Dr. Sherley Dubois Lymphocytes/100 WBC (Bld) 34.2 % Normal 20.5-60.0 The [facility] [place] Comment on above: Performed By: #### C BC #### [facility] [place] [facility] [address] [place] [address] Dr. Sherley Dubois MANUAL DIFF REQ NO Normal The [facility] Comment on above: Performed By: #### C BC #### [facility] [place] [facility] [address] [place] [address] Dr. Sherley Dubois MCH (RBC) [Entitic mass] 30.9 pg Normal 26.7-34.0 The [facility] [place] Comment on above: Performed By: #### C BC #### [facility] [place] [facility] [address] [place] [address] Dr. Sherley Dubois MCHC (RBC) [Mass/Vol] 33.5 g/dL Normal 29.9-35.2 The [facility] [place] Comment on above: Performed By: #### C BC #### [facility] [place] [facility] [address] [place] [address] Dr. Sherley Dubois MCV (RBC) [Entitic vol] 92.4 fL Normal 81.0-99.0 [facility] [place] Comment on above: Performed By: #### C BC #### [facility] [place] [facility] [address] [place] [address] Dr. Sherley Dubois MONO # 0.6 103/ul Normal 0.3-0.8 The [facility] [place] Comment on above: Performed By: #### C BC #### [facility] [place] [facility] [address] [place] [address] Dr. Sherley Dubois Monocytes/100 WBC (Bld) 10.1 % Normal 1.7-12.0 [facility] [place] Comment on above: Performed By: #### C BC #### [facility] [place] [facility] [address] [place] [address] Dr. Sherley Dubois NEUT # 2.8 103/ul Normal 1.4-6.5 [facility] Comment on above: Performed By: #### C BC #### [facility] [place] [facility] [address] [place] [address] Dr. Sherley Dubois Neutrophils/100 WBC (Bld) 49.6 % Normal 43.0-75.0 [facility] [place] Comment on above: Performed By: #### C BC #### [facility] [place] [facility] [address] [place] [address] Dr. Sherley Dubois Platelet mean volume (Bld) [Entitic vol] 9.4 fL Critically low 9.5-13.5 The [facility] [place] Comment on above: Performed By: #### C BC #### [facility] [place] [facility] [address] [place] [address] Dr. Sherley Dubois PLT 214 103/ul Normal 150-450 The [facility] [place] Comment on above: Performed By: #### C BC #### [facility] [place] [facility] [address] [place] [address] Dr. Sherley Dubois RBC 4.72 106/ul Normal 4.20-5.40 The [facility] [place] Comment on above: Performed By: #### C BC #### [facility] [place] [facility] [address] [place] [address] Dr. Sherley Dubois WBC 5.6 103/ul Normal 4.0-11.0 The [facility] Comment on above: Performed By: #### C BC #### [facility] [place] [facility] [address] [address] [address] Sherley Dubois LIPID PROFILEon 02-24-2022 CHOL-HDL RATIO NORM SEE BELOW Normal [facility] Comment on above: Result Comment: 3.3 - 4.4 LOW RISK 4.4 - 7.1 AVERAGE RISK 7.1 - 11.0 MODERATE RISK >11.0 HIGH RISK Performed By: #### T 4, LIPID, TSH, CMP #### [facility] [place] [facility] [address] [address] [address] Sherley Dubois Cholesterol [Mass/Vol] 137 mg/dL Normal <=200 [facility] Comment on above: Performed By: #### T 4, LIPID, TSH, CMP #### [facility] [place] [facility] [address] [address] [address] Sherley Dubois Cholesterol in HDL [Mass/Vol] 44 mg/dL Normal 40-60 [facility] Comment on above: Performed By: #### T 4, LIPID, TSH, CMP #### [facility] [place] [facility] [address] [address] [address] Sherley Dubois Cholesterol in LDL [Mass/Vol] 73.6 mg/dL Normal [facility] Comment on above: Performed By: #### T 4, LIPID, TSH, CMP #### [facility] [place] [facility] [address] [address] [address] Sherley Dubois Cholesterol.total/C holesterol in HDL [Mass ratio] 3.1 {ratio} Normal [facility] Comment on above: Performed By: #### T 4, LIPID, TSH, CMP #### [facility] [place] [facility] [address] [address] [address] Sherley Dubois HDL NORMAL > or = 60 mg/dl - LO W CARDIOVASCULAR RISK <40 mg/dl - HIGH CARDIOVASCULAR RISK Normal [facility] Comment on above: Performed By: #### T 4, LIPID, TSH, CMP #### [facility] [place] [facility] [address] [address] [address] Sherley Dubois LDL CALC NORMAL SEE BELOW Normal [facility] Comment on above: Result Comment: <100 mg/dl OPTIMAL 100 - 129 mg/dl NEAR OR ABOVE OPTIMAL 130 - 159 mg/dl BORDERLINE HIGH 160 - 189 mg/dl HIGH >190 mg/dl VERY HIGH Performed By: #### T 4, LIPID, TSH, CMP #### [facility] [place] [facility] [address] [address] [address] Sherley Dubois Triglyceride [Mass/Vol] 97 mg/dL Normal <=150 [facility] Comment on above: Performed By: #### T 4, LIPID, TSH, CMP #### [facility] [place] [facility] [address] [address] [address] Sherley Dubois VLDL CALC 19.4 mg/dL Normal [facility] Comment on above: Performed By: #### T 4, LIPID, TSH, CMP #### [facility] [place] [facility] [address] [place] [address] Dr. Sherley Dubois PROF 14(COMP METB)on 022 Albumin [Mass/Vol] 3.9 g/dL Normal 3.4-5.0 [facility] Comment on above: Performed By: #### T 4, LIPID, TSH, CMP #### [facility] [place] [facility] [address] [address] [address] Sherley Dubois Albumin/Globulin [Mass ratio] 1.3 {ratio} Normal [facility] Comment on above: Performed By: #### T 4, LIPID, TSH, CMP #### [facility] [place] [facility] [address] [address] [address] Sherlye Dubois ALP [Catalytic activity/Vol] 95 U/L Normal 46-116 [facility] Comment on above: Performed By: #### T 4, LIPID, TSH, CMP #### [facility] [place] [facility] [address] [address] [address] Sherley Dubois ALT [Catalytic activity/Vol] 37 U/L Normal 14-59 [facility] Comment on above: Performed By: #### T 4, LIPID, TSH, CMP #### [facility] [place] [facility] [address] [address] [address] Sherley Dubois Anion gap [Moles/Vol] 9.7 mmol/L Normal [facility] Comment on above: Performed By: #### T 4, LIPID, TSH, CMP #### [facility] [place] [facility] [address] [place] [address] Dr. Sherley Dubois AST [Catalytic activity/Vol] 16 U/L Normal 15-37 [facility] Comment on above: Performed By: #### T 4, LIPID, TSH, CMP #### [facility] [place] [facility] [address] [place] [address] Dr. Sherley Dubois Bilirubin [Mass/Vol] 0.4 mg/dL Normal 0.2-1.0 [facility] Comment on above: Performed By: #### T 4, LIPID, TSH, CMP #### [facility] [place] [facility] [address] [place] [address] Dr. Sherley Dubois Calcium [Mass/Vol] 9.1 mg/dL Normal 8.5-10.1 [facility] Comment on above: Performed By: #### T 4, LIPID, TSH, CMP #### [facility] [place] [facility] [address] [place] [address] Dr. Sherley Dubois Chloride [Moles/Vol] 108 mmol/L Critically high 98-107 [facility] [place] Comment on above: Performed By: #### T 4, LIPID, TSH, CMP #### [facility] [place] [facility] [address] [place] [address] Dr. Sherley Dbuois CO2 [Moles/Vol] 29.2 mmol/L Normal 21.0-32.0 [facility] Comment on above: Performed By: #### T 4, LIPID, TSH, CMP #### [facility] [place] [facility] [address] [place] [address] Dr. Sherley Dubois Creatinine [Mass/Vol] 0.65 mg/dL Normal 0.55-1.02 [facility] Comment on above: Performed By: #### T 4, LIPID, TSH, CMP #### [facility] [place] [facility] [address] [place] [address] Dr. Sherley Dubois EGFR-AF GEORGIAN >60 Normal >=60 [facility] Comment on above: Performed By: #### T 4, LIPID, TSH, CMP #### [facility] [place] [facility] [address] [place] [address] Dr. Sherley Dubois EGFR-NON AF GEORGIAN >60 Normal >=60 [facility] [place] Comment on above: Performed By: #### T 4, LIPID, TSH, CMP #### [facility] [place] [facility] [address] [place] [address] Dr. Sherley Dubois Globulin (S) [Mass/Vol] 3.1 g/dL Normal [facility] Comment on above: Performed By: #### T 4, LIPID, TSH, CMP #### [facility] [place] [facility] [address] [place] [address] Dr. Sherley Dubois Glucose [Mass/Vol] 92 mg/dL Normal 74-106 [facility] Comment on above: Performed By: #### T 4, LIPID, TSH, CMP #### [facility] [place] [facility] [address] [place] [address] Dr. Sherley Dubois Potassium [Moles/Vol] 3.9 mmol/L Normal 3.5-5.1 [facility] [place] Comment on above: Performed By: #### T 4, LIPID, TSH, CMP #### [facility] [place] [facility] [address] [place] [address] Dr. Sherley Dubois Protein [Mass/Vol] 7.0 g/dL Normal 6.4-8.2 [facility] Comment on above: Performed By: #### T 4, LIPID, TSH, CMP #### [facility] [place] [facility] [address] [place] [address] Dr. Sherley Dubois Sodium [Moles/Vol] 143 mmol/L Normal 136-145 [facility] Comment on above: Performed By: #### T 4, LIPID, TSH, CMP #### [facility] [place] [facility] [address] [place] [address] Dr. Sherley Dubois Urea nitrogen [Mass/Vol] 12.0 mg/dL Normal 7.0-18.0 [facility] Comment on above: Performed By: #### T 4, LIPID, TSH, CMP #### [facility] [place] [facility] [address] [place] [address] Dr. Sherley Dubois Urea nitrogen/Creatinine [Mass ratio] 18.5 mg/mg Normal [facility] Comment on above: Performed By: #### T 4, LIPID, TSH, CMP #### [facility] [place] [facility] [address] [place], [place] [address] Dr. Sherley Dubois T4on 02-24-2022 T4 [Mass/Vol] 6.50 ug/dL Normal 4.80-13.90 [facility] Comment on above: Performed By: #### T 4, LIPID, TSH, CMP #### [facility] [place] [facility] [address] [id number] Sherley Dubois TSHon 02-24-2022 TSH 3.491 uIU/mL Normal 0.358-3.740 The [facility] Comment on above: Performed By: #### T 4, LIPID, TSH, CMP #### [facility] [place] [facility] [address] [address] [address] Sherley Dubois MR Brain WO and W contrast I Von 09-05-2021 IMPRESSION: Status post gross total resection of left posterior fossa meningioma. No gross evidence for recurrence. Substantial gliosis in the left cerebellar hemisphere. No acute brain findings. Based on the axial T2 flow void pattern, proximal intracranial arterial vasculature, major cortical draining veins, and dural venous sinuses are patent. Concordant findings on the post gadolinium scans. 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 This information is taken directly from the circuit recorder system. s/p Left retrosigmoid approach for resection. [...] Stable findings of remote left-sided meningioma resection.. [place] extra-axial fluid present along lateral margins of [...] orbits and extracranial soft tissues are unremarkable. [id number] IVISION OF RADIOLOGY Provider, 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 This information is taken directly from the circuit recorder system. s/p Left retrosigmoid approach for resection. [...] Stable findings of remote left-sided meningioma resection.. [place] extra-axial fluid present along lateral margins of [...] orbits and extracranial soft tissues are unremarkable. 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 No gross evidence for recurrence. Substantial gliosis in the left cerebellar hemisphere. No acute brain findings. Based on the axial T2 flow void pattern, proximal intracranial arterial vasculature, major cortical draining veins, and dural venous sinuses are patent. Concordant findings on the post gadolinium scans. Junior Sales Representative: WENDY Transcribe Date/Time: Sep 05 2021 11:17A Dictated by : TRAN GARCIA MD This examination was interpreted and the report reviewed and electronically signed by: TRAN GARCIA MD on Sep 05 2021 11:27AM EST [facility] Radiology Study observation (narrative) [facility] MR Brain WO and W contrast I VOrdered By: [facility] Provider on 09-05-2021 [facility] Cardiovascular Lab Reporton 12-08-2020 Cardiovascular Lab Report [facility] Patient Name: Leonora Bryan MR #: [id number] [facility] Physician: Reginaldo Thrasher M.D. Department of Service Date: 12/08/2020 Medicine Birthdate: 1965 Division of Room #: CC Cardiology Adult Cardiovascular Services [facility] [address] [facility]. [place] [address] Cardiovascular Laboratory Report INDICATION: The patient is [...] signed informed consent. 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 The right wrist area was prepped and draped in usual fashion. Micropuncture technique was used to gain access in the right radial artery and a 6-Icelandic x 11 cm Hydrophilic sheath was advanced. Verapamil was given through the sheath and heparin was administered intravenously. Bilateral selective coronary angiography was then performed using 6-Icelandic JL3.5 and JR5 diagnostic catheters. Catheters were [...] Thrasher M.D. Date Trans: 12/08/2020 11:25 A/diamante [id number] cc: Dre Vogel D.O. [address] [facility] [address] [place] [facility] MR Brain WO and W contrast I Von 09-07-2020 IMPRESSION: Extensive variable age changes of the posterior fossa/cerebellum with resection of meningioma seen on outside examinations without evidence of residual or recurrent meningioma. Junior Sales Representative: PSCB Transcribe Date/Time: Sep 07 2020 12:34P Dictated by : YANETH CASTILLO MD This examination was interpreted and the report reviewed and electronically signed by: YANETH CASTILLO MD on Sep 07 2020 12:53PM [facility] DIVISION OF RADIOLOGY * * *Final Report* * * DATE OF EXAM: Sep 07 2020 12:06PM [facility] 0295 - MRI BRAIN WO/W IVCON / PROCEDURE REASON: Benign neoplasm of brain, unspecified brain region (HCC) * * * * Physician Interpretation * * * * EXAMINATION: MRI BRAIN WO/W IVCON HISTORY: Benign neoplasm of brain, unspecified brain region (HCC) Left posterior petrous meningioma, 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 TECHNIQUE: Intracranial mass protocol MRI brain without/with contrast including susceptibility weighted imaging MQ: MRBWOW_2 Contrast: 18 mL Dotarem IV COMPARISON: MRI 03/18/2020 and 10/03/2019; outside MRI and CT dated 07/17/2019 and 06/22/2019 respectively RESULT: Superimposed on remote suboccipital craniectomy and paramedian cerebellar/cerebellar vermis surgical defect/encephalomalac ia, left retromastoidectomy with mesh cranioplasty with a combination of long-standing right and new left inconsequential extra-axial collections. Considerable encephalomalacia/glio sis of the left cerebellar hemisphere especially laterally. Mild pachymeningeal enhancement without evidence of nodularity to suggest residual or recurrent meningioma. Age-appropriate supratentorial white matter with mild deep parietal/periatrial/o ccipital nonspecific white matter T2/FLAIR hyperintensity. Minimal chronic blood products within and around the cerebellum. Negative for restricted diffusion, acute hemorrhage, significant mass effect, significant extra-axial collection, and pathologic/new/progre ssive enhancement. The major intracranial vessels are grossly patent as evidenced by normal appearing flow voids although rarely thrombosis/thromboemb olus may mimic normal flow void. Unremarkable orbits and paranasal sinuses. Trace mastoid effusions. Grossly unremarkable marrow signal. DIVISION OF RADIOLOGY Provider, 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 TECHNIQUE: Intracranial mass protocol MRI brain without/with contrast including susceptibility weighted imaging MQ: MRBWOW_2 Contrast: 18 mL Dotarem IV COMPARISON: MRI 03/18/2020 and 10/03/2019; outside MRI and CT dated 07/17/2019 and 06/22/2019 respectively RESULT: Superimposed on remote suboccipital craniectomy and paramedian cerebellar/cerebellar vermis surgical defect/encephalomalac ia, left retromastoidectomy with mesh cranioplasty with a combination of long-standing right and new left inconsequential extra-axial collections. Considerable encephalomalacia/glio sis of the left cerebellar hemisphere especially laterally. Mild pachymeningeal enhancement without evidence of nodularity to suggest residual or recurrent meningioma. Age-appropriate supratentorial white matter with mild deep parietal/periatrial/o ccipital nonspecific white matter T2/FLAIR hyperintensity. Minimal chronic blood products within and around the cerebellum. Negative for restricted diffusion, acute hemorrhage, significant mass effect, significant extra-axial collection, and pathologic/new/progre ssive enhancement. The major intracranial vessels are grossly patent as evidenced by normal appearing flow voids although rarely thrombosis/thromboemb olus may mimic normal flow void. Unremarkable orbits and paranasal sinuses. Trace mastoid effusions. Grossly unremarkable marrow signal. IMPRESSION IMPRESSION: Extensive variable age changes of the posterior fossa/cerebellum with resection of meningioma seen on outside examinations without evidence of residual or recurrent meningioma. Junior Sales Representative: PSCB Transcribe Date/Time: Sep 07 2020 12:34P Dictated by : YANETH CASTILLO MD This examination was interpreted and the report reviewed and electronically signed by: YANETH CASTILLO MD on Sep 07 2020 12:53PM EST [facility] Radiology Study observation (narrative) [facility] MR Brain WO and W contrast I VOrdered By: Ccf Provider on 09-07-2020 [facility] MR Brain WO and W contrast I Von 03-18-2020 IMPRESSION: Status post gross total resection of left posterior fossa meningioma. Left cerebellum has partially relaxed into the space created by this prior resection. No evidence for recurrence. No acute brain findings. Based on the axial T2 flow void pattern, proximal intracranial arterial vasculature, major cortical draining veins, and dural venous sinuses are patent. Concordant findings on the post gadolinium scans. Junior Sales Representative: WENDY Transcribe Date/Time: Mar 18 2020 10:42A Dictated by : TRAN GARCIA MD This examination was interpreted and the report reviewed and electronically signed by: TRAN GARCIA MD on Mar 18 2020 10:53AM [facility] DIVISION OF RADIOLOGY * * *Final Report* * * DATE OF EXAM: Mar 18 2020 10:38AM [facility] 0295 - MRI BRAIN WO/W IVCON / PROCEDURE REASON: Meningioma (HCC) * * * * Physician Interpretation * * * * EXAMINATION: MRI BRAIN WO/W IVCON HISTORY: Meningioma (HCC). Prior gross total resection of left-sided posterior fossa meningioma. TECHNIQUE: Routine brain MRI protocol without and with contrast including diffusion and gradient echo images. MQ: MRBWOW_2 Contrast: 17 mL Dotarem IV COMPARISON: Previous MRI of the brain 10/03/2019. RESULT: Acute Change: There is no evidence of restricted diffusion to suggest an acute infarct. Hemorrhage: SWI artifact consistent with old postsurgical blood byproducts. No evidence for acute blood on this exam. Stable old microhemorrhage right cerebellum. Mass Lesion/ Mass Effect: Since the prior study, left cerebellar brain parenchyma has partially relaxed into the defect created by the left-sided meningioma resection. [place] extra-axial fluid present along lateral margins of [...] but likely represents mild chronic microvascular ischemia. Parenchyma: There is mild generalized parenchymal volume loss. Ventricles: Ventriculomegaly corresponds to the degree of [...] dominant left-sided vein of Valentín. Other: Trace bilateral mastoid effusion. No particular significance. Trace mucosal thickening in the maxillary sinuses. Paranasal sinus chambers are otherwise grossly clear.. The orbits and extracranial soft tissues are unremarkable. DIVISION OF RADIOLOGY Provider, [facility] - 03/18/2020 * * *Final Report* * * DATE OF EXAM: Mar 18 2020 10:38AM [facility] 0295 - MRI BRAIN WO/W IVCON / PROCEDURE REASON: Meningioma (HCC) * * * * Physician Interpretation * * * * EXAMINATION: MRI BRAIN WO/W IVCON HISTORY: Meningioma (HCC). Prior gross total resection of left-sided posterior fossa meningioma. TECHNIQUE: Routine brain MRI protocol without and with contrast including diffusion and gradient echo images. MQ: MRBWOW_2 Contrast: 17 mL Dotarem IV COMPARISON: Previous MRI of the brain 10/03/2019. RESULT: Acute Change: There is no evidence of restricted diffusion to suggest an acute infarct. Hemorrhage: SWI artifact consistent with old postsurgical blood byproducts. No evidence for acute blood on this exam. Stable old microhemorrhage right cerebellum. Mass Lesion/ Mass Effect: Since the prior study, left cerebellar brain parenchyma has partially relaxed into the defect created by the left-sided meningioma resection. [place] extra-axial fluid present along lateral margins of [...] but likely represents mild chronic microvascular ischemia. Parenchyma: There is mild generalized parenchymal volume loss. Ventricles: Ventriculomegaly corresponds to the degree of [...] dominant left-sided vein of Valentín. Other: Trace bilateral mastoid effusion. No particular significance. Trace mucosal thickening in the maxillary sinuses. Paranasal sinus chambers are otherwise grossly clear.. The orbits and extracranial soft tissues are unremarkable. 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 Left cerebellum has partially relaxed into the space created by this prior resection. No evidence for recurrence. No acute brain findings. Based on the axial T2 flow void pattern, proximal intracranial arterial vasculature, major cortical draining veins, and dural venous sinuses are patent. Concordant findings on the post gadolinium scans. Junior Sales Representative: PSCB Transcribe Date/Time: Mar 18 2020 10:42A Dictated by : TRAN GARCIA MD This examination was interpreted and the report reviewed and electronically signed by: TRAN GARCIA MD on Mar 18 2020 10:53AM EST [facility] Radiology Study observation (narrative) [facility] MR Brain WO and W contrast I VOrdered By: Ccf Provider on 03-18-2020 [facility] Vital Signs Date Time Vital Sign Value Performing Clinician Facility 12-24-2024 09:54-0400 Body height 167.6 cm Jeremy Macias [employer] Work Phone: [facility] 12-24-2024 09:54-0400 Body mass index (BMI) [Ratio] 33.09 kg/m2 Jeremy Macias DPM Work Phone: [facility] 12-24-2024 09:54-0400 Body weight 92.99 kg Jeremy Macias DPM Work Phone: [facility] 10-16-2024 01:00-0400 Body height 167.64 cm [facility]16[facility] 01:00-0400 Body mass index (BMI) [Ratio] 33.5 kg/m2 [facility] [employer] [facility]-16-2024 01:00-0400 Body surface area Derived from formula 2.09 m2 Huong Elizabeth [place] - [facility] 10-16-2024 01:00-0400 Body weight 94.17 kg Huong Elizabeth [place] [facility] 10-16-2024 01:00-0400 Diastolic blood pressure 72 mm[Hg] Huong Elizabeth [place] [facility] 10-16-2024 01:00-0400 Diastolic blood pressure 84 mm[Hg] Huong Elizabeth [place] [facility] 10-16-2024 01:00-0400 Heart rate 80 /min Huong Elizabeth [place] [facility] 10-16-2024 01:00-0400 SaO2% (BldA) [Mass fraction] 96 % Huong Elizabeth [place] [facility] 10-16-2024 01:00-0400 Systolic blood pressure 112 mm[Hg] Huong Elizabeth [place] [facility] 10-16-2024 01:00-0400 Systolic blood pressure 110 mm[Hg] Huong Elizabeth [place] [facility] 09-08-2024 08:52-0400 Body height 161.3 cm Jeremy Macias DPM Work Phone: [facility] 09-08-2024 08:52-0400 Body mass index (BMI) [Ratio] 35.4 kg/m2 Jeremy Macias DPM Work Phone: [facility] 09-08-2024 08:52-0400 Body weight 92.08 kg Jeremy Macias DPM Work Phone: [facility] 08-08-2024 10:21-0400 Body height 161.3 cm Jeremy Macias DPM Work Phone: [facility] 08-08-2024 10:21-0400 Body mass index (BMI) [Ratio] 35.4 kg/m2 Jeremy Macias DPM Work Phone: [facility] 08-08-2024 10:21-0400 Body weight 92.08 kg Jeremy Macias DPM Work Phone: [facility] 04-18-2024 08:53-0500 Body height 161.3 cm Jeremy Macias DPM Work Phone: [facility] 04-18-2024 08:53-0500 Body mass index (BMI) [Ratio] 35.4 kg/m2 Jeremy Berriosher DPM Work Phone: [facility] 04-18-2024 08:53-0500 Body weight 92.08 kg Jeremy Macias DPM Work Phone: [facility] 04-01-2024 09:26-0500 Body height 165.1 cm Lissett Dotson MD Work Phone: [facility] 04-01-2024 09:26-0500 Body mass index (BMI) [Ratio] 33.78 kg/m2 Lissett Dotson MD Work Phone: [facility] 04-01-2024 09:26-0500 Body weight 92.08 kg Lissett Dotson MD Work Phone: [facility] 04-01-2024 09:26-0500 Diastolic blood pressure 79 mm[Hg] Lissett Dotson MD Work Phone: [facility] 04-01-2024 09:26-0500 Systolic blood pressure 107 mm[Hg] Lissett Dotson MD Work Phone: [facility] 06-08-2023 09:25-0500 Body height 168.91 cm Miladys Read Other [employer] Other 06-08-2023 09:25-0500 Body mass index (BMI) [Ratio] 32.81 kg/m2 Miladys Read Other [employer] Other 06-08-2023 09:25-0500 Body temperature 97.8 [degF] Miladys Read Other [employer] Other 06-08-2023 09:25-0500 Body weight 93.62 kg Miladys Read Other [employer] Other 06-08-2023 09:25-0500 Diastolic blood pressure 79 mm[Hg] Miladys Read Other [employer] Other 06-08-2023 09:25-0500 Respiratory rate 18 /min Miladys Read Other [employer] Other 06-08-2023 09:25-0500 SaO2% (BldA) [Mass fraction] 97 % Miladys Read Other [employer] Other 06-08-2023 09:25-0500 Systolic blood pressure 116 mm[Hg] Miladys Read Other [employer] Other Encounters Encounter Date Encounter Type Care Provider Facility Start: 12-24-2024 End: 12-24-2024 [employer] Jeremy Macias DPM Work Phone: [facility] Start: 12-24-2024 End: 12-24-2024 [employer] Jeremy Macias DPM [facility] Phone[facility] Start: 12-24-2024 End: 12-24-2024 ambulatory JEREMY MACIAS Not Available Start: 12-24-2024 End: 12-24-2024 Office outpatient visit 25 minutes Jeremy Macias DPM Work Phone: [facility] Comment on above: Primary osteoarthrit is of right ankle (Primary Dx); Porokeratosis; Right foot pain Start: 10-16-2024 Adult health examination Huong Elizabeth [place] [facility] Start: 10-16-2024 Huong Elizabeth [facility] Start: 10-13-2024 Huong Elizabeth [place] [facility] Start: 09-08-2024 End: 09-08-2024 Bamboo flowsheet Jeremy Macias DPM Work Phone: [facility] Start: 09-08-2024 End: 09-08-2024 Bamboo flowsheet Jeremy Macias DPM Work Phone: [facility] Start: 09-08-2024 End: 09-08-2024 Office outpatient visit 25 minutes Jeremy Macias DPM Work Phone: [facility] Comment on above: Primary osteoarthrit is of both ankles (Primary Dx); Valgus deformity, not elsewhere classified, right ankle; Posterior tibial tendinitis of right lower extremity; Equinus contracture of right ankle; Instability of right ankle joint; Difficulty walking Start: 09-08-2024 End: 09-08-2024 ambulatory JEREMY MACIAS Not Available Start: 08-08-2024 End: 08-08-2024 Bamboo flowsheet Jeremy Macias DPM Work Phone: [facility] Start: 08-08-2024 End: 08-08-2024 Bamboo flowsheet Jeremy Macias DPM Work Phone: [facility] Start: 08-08-2024 End: 08-08-2024 ambulatory JEREMY MACIAS Not Available Start: 08-08-2024 End: 08-08-2024 Office outpatient visit 25 minutes Jeremy Macias DPM Work Phone: [facility] Comment on above: Valgus deformity, no t elsewhere classified, right ankle (Primary Dx); Valgus deformity, not elsewhere classified, left ankle; Primary osteoarthritis of both ankles; Pain in both feet; Equinus contracture of left ankle; Equinus contracture of right ankle Start: 05-10-2024 End: 05-10-2024 Patient encounter procedure Huong Elizabeth MD Work Phone: [facility] Work Phone: Start: 05-10-2024 End: 05-10-2024 ambulatory Huong Elizabeth MD Work Phone: [facility] Work Phone: Start: 04-18-2024 End: 04-18-2024 Bamboo flowsheet Jeremy Macias DPM Work Phone: [facility] Start: 04-18-2024 End: 04-18-2024 Bamboo flowsheet Jeremy Macias DPM Work Phone: [facility] Start: 04-18-2024 End: 04-18-2024 Office outpatient visit 25 minutes Jeremy Macias DPM Work Phone: [facility] Comment on above: Porokeratosis (Prima ry Dx); Right foot pain; Ingrown toenail; Left foot pain Start: 04-18-2024 End: 04-18-2024 ambulatory JEREMY MACIAS Not Available Start: 04-01-2024 End: 04-01-2024 Bamboo flowsheet Lissett Dotson MD Work Phone: [facility] Start: 04-01-2024 End: 04-01-2024 Bamboo flowsheet Lissett Dotson MD Work Phone: [facility] Start: 04-01-2024 End: 04-01-2024 ambulatory LISSETT DOTSON Not Available Start: 04-01-2024 End: 04-01-2024 Patient encounter procedure Lisstet Dotson MD Work Phone: [facility] Comment on above: Left ear impacted ce rumen (Primary Dx) Start: 02-27-2024 End: 02-27-2024 Telemedicine consultation with patient Emily Scanlonalex DAVIES Work Phone: [facility] [place] Start: 02-27-2024 End: 02-27-2024 ambulatory Emilytita Scanlonalex ASHBYMESMERIST Work Phone: [facility] Comment on above: Meningioma, cerebral (HCC) (Primary Dx) Start: 02-20-2024 End: 02-20-2024 ambulatory EMILY SANDERS Facility:[facility] Start: 02-20-2024 End: 02-20-2024 Subsequent hospital visit by physician Julián [facility] Casandra (1.5t) Work Phone: Radiology Comment on above: Benign neoplasm of m eninges (HCC) [D32.9] Start: 01-25-2024 End: 01-25-2024 ambulatory [facility] Start: 11-14-2023 Orders Only Emily Sanders MAYKEL.MESMERIST Work Phone: [facility] Comment on above: Benign neoplasm of m eninges (HCC) (Primary Dx) Start: 06-10-2023 End: 06-10-2023 ambulatory Miladys Read Other [employer] Other Start: 06-10-2023 Telephone encounter Miladys Read [facility] [address] Start: 06-08-2023 Office outpatient vi sit 15 minutes Miladys [facility] Start: 06-08-2023 End: 06-08-2023 ambulatory Miladys Read [employer] Other Start: 06-08-2023 End: 06-08-2023 Departed Referred MAYKEL Read Work Phone: [facility] [place] Work Phone: Start: 04-10-2022 End: 04-10-2022 ambulatory DO Dre Vogel Work Phone: [facility] Work Phone: Start: 04-10-2022 End: 04-10-2022 Patient encounter procedure DO Dre Vogel Work Phone: [facility] Start: 02-24-2022 End: 02-25-[address] DRE VOGEL Facility:[facility] Start: 09-07-2021 End: 09-07-2021 ambulatory Emily Sanders CHEMICAL MACHINE TENDER.MESMERIST Work Phone: [facility] Comment on above: Benign neoplasm of b rain, unspecified brain region (HCC) Start: 09-07-2021 End: 09-07-2021 Telemedicine consultation with patient Emily Sanders CHEMICAL MACHINE TENDER.MESMERIST Work Phone: [facility] Start: 09-05-2021 End: 09-05-2021 Subsequent hospital visit by physician Mri [facility] Casandra (1.5t) Work Phone: Radiology Comment on above: 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] Start: 08-19-[address] DRE VOGEL Facili ty:[facility] Start: 04-30-[address] REGINALDO THRASHER Fac ility:[facility] Start: 03-30-[address] REGINALDO THRASHER Fac ility:[facility] Start: 12-08-2020 End: 12-09-2020 ambulatory PROVIDER UNKNOWN Facility:[facility] Start: 11-25-2020 End: 12-23-2020 ambulatory PROVIDER UNKNOWN Facility:[facility] Start: 09-07-2020 End: 09-07-2020 Subsequent hospital visit by physician Mri [facility] Casandra (1.5t) Work Phone: Radiology Comment on above: Benign neoplasm of b rain, unspecified brain region (HCC) [D33.2] Start: 03-18-2020 End: 03-18-2020 Subsequent hospital visit by physician Mri [facility] [place] (1.5t) Work Phone: Radiology Comment on above: Meningioma (HCC) [D3 2.9] Procedures Date Procedure Procedure Detail Performing Clinician Start: 10-16-2024 End: 10-16-2024 History of total hysterectomy Huong Elizabeth Start: 10-16-2024 End: 10-16-2024 Screening mammography Huong Elizabeth Start: 08-08-2024 Radex foot complete minimum 3 views Jeremy Macias DPM Work Phone: Start: 08-08-2024 Radex foot complete minimum 3 views Jeremy Macias DPM Work Phone: Start: 02-20-2024 Mri brain brain stem w/o w/contrast material Emily Mellors CHEMICAL MACHINE TENDER.MESMERIST Work Phone: Start: 04-10-2022 Screening mammograph y of bilateral breasts DO Dre Vogel Work Phone: Start: 09-05-2021 Mri brain brain stem w/o w/contrast material Emily Mellors CHEMICAL MACHINE TENDER.MESMERIST Work Phone: Start: 09-07-2020 Mri brain brain stem w/o w/contrast material Emily Mellors CHEMICAL MACHINE TENDER.MESMERIST Work Phone: Start: 03-20-2020 Adult depression scr eening assessment Emily Mellors CHEMICAL MACHINE TENDER.MESMERIST Work Phone: Start: 03-18-2020 Mri brain brain stem w/o w/contrast material Cheyenne Lo CHEMICAL MACHINE TENDER.MESMERIST Work Phone: Start: 10-18-2018 Colonoscopy Jeremy verdugo DPM Work Phone: Start: 10-09-2018 Mammography Lissett bingham MD Work Phone: Start: 04-30-2004 Partial hysterectomy Da vitico Elizabeth Plan of Treatment Date Care Activity Detail Author Start: 05-08-2029 Urine microalbumin profile DTaP,Tdap,Td Vaccine (2 - Td or Tdap) [facility] Start: 10-18-2028 Screening for malign ant neoplasm of colon [facility] Start: 04-17-2025 InPerson; Chronic Disease Mgmt InPerson; Chronic Disease Mgmt [place] - [facility] Start: 12-29-2024 Influenza vaccination [facility] Start: 10-16-2024 MG Breast - bilatera l Screening [facility] (Mammogram) Start: 10-16-2024 InPerson; PE, Routine InPerson; [facility], [facility] Start: 10-13-2024 InPerson; Lab Draw InPerson; Lab [place] w [place] - [facility] Start: 09-08-2024 End: 09-08-2024 Patient encounter procedure [facility] Comment on above: Arrived Start: 05-10-2024 MG Breast - bilatera l Screening [facility] Start: 05-10-2024 Screening mammograph y of bilateral breasts MM screening mammo BI w/CAD [facility] Start: 04-18-2024 End: 04-18-2024 Patient encounter procedure 04/18/2024 8:45 AM EST Office Visit [facility] [address] [place] [id number] Jeremy Macias, DPAddis [address] [place], [place] [id number] Arrived [facility] Comment on above: Arrived Start: 02-27-2024 End: 02-27-2024 ambulatory 02/27/2024 2:00 PM EDT [facility] [place] [address] [place] [address] Emily Sanders APRN.MESMERIST [address] [place] [address] MRI brain in 12 months [facility] [place] Comment on above: MRI brain in 12 trini hs Start: 02-20-2024 End: 02-20-2024 Patient encounter procedure 02/20/2024 9:20 AM EDT Appointment Radiology [address] [place] [address] MRI BRAIN WO/W IVCON Radiology Comment on above: MRI BRAIN WO/W IVCON Start: 12-30-2023 Covid-19 Vaccine () Covid-19 Vaccine () [facility] Start: 12-30-2023 Influenza vaccination Influenza Vacc ine (#1) [facility] Start: 06-08-2023 Bacteria identified in Urine by Culture [facility] Start: 04-30-2023 Behavioral Health Screening Behavioral Health Screening [facility] Start: 12-29-2022 Covid-19 Vaccine () Covid-19 Vaccine () [facility] Start: 09-30-2022 DIABETES SCREEN DIABETES SCREEN [facility] Start: 09-30-2022 Diabetes Screening Diabetes Screenin g [facility] Start: 07-08-2021 COVID-19 VACCINE (4 - Booster for Pfizer series) COVID-19 VACCINE (4 - Booster for Pfizer series) [facility] Start: 03-20-2021 Adult depression screening assessment DEPRESSION SCREENING [facility] Start: 10-10-2019 Screening for malign ant neoplasm of breast [facility] Start: 2014 SHINGRIX VACCINE (1 of 2) SHINGRIX VACCINE (1 of 2) [facility] Start: 2009 COLOGUARD (FIT-DNA) COLOGUARD (FIT-D NA) [facility] Start: 2009 Colonoscopy COLONOSCOPY [facility] Start: 2009 COLORECTAL CANCER SCREENING COLORECTAL CANCER SCREENING [facility] Start: [address] COLONOGRAPHY [facility] Start: 2009 FECAL OCCULT BLOOD FECAL OCCULT BLOO D [facility] Start: 2009 Lipid panel Lipid Screening [facility] Start: 2009 LIPID SCREEN LIPID SCREEN [facility] Start: 2009 Screening for malign ant neoplasm of colon [facility] Start: 2009 SIGMOIDOSCOPY SIGMOIDOSCOPY [facility] Start: 2004 Mammography MAMMOGRAM [facility] Start: 2004 Screening for malign ant neoplasm of breast Mammogram Screening [facility] Start: 1994 HPV TESTING HPV TESTING [facility] Start: 1994 Screening for malign ant neoplasm of cervix [facility] Start: 1985 PAP TESTING PAP TESTING [facility] Start: 1985 Screening for malign ant neoplasm of cervix [facility] Start: 09-25-1983 Urine microalbumin profile DTAP,TDAP,TD (1 - Tdap) [facility] Start: 1982 Anxiety Screening Anxiety Screening [facility] Start: 1982 Depression Screening Depression Scre ening [facility] Start: 1982 HEPATITIS C SCREENING HEPATITIS C [facility] Start: 1982 Hepatitis C screening Hepatitis C [facility] Start: 1982 HIV SCREENING HIV SCREENING [facility] Start: 1982 HIV screening HIV Screening [facility] Start: 1964 Screening for malign ant neoplasm of colon [facility] Colonoscopy colonoscopy [place] - [facility] End: 12-13-2024 MR Brain WO and W contrast IV MRI BRAIN WO/W IVCON Radiology Routine Benign neoplasm of meninges (HCC) 1 Occurrences starting 11/14/2023 until 12/13/2024 [facility] Work Phone: Comment on above: 1 Occurrences starti ng 11/14/2023 until 12/13/2024 End: 10-07-2022 Mri brain brain stem w/o w/contrast material [facility] Work Phone: Comment on above: 1 Occurrences starti ng 09/07/2021 until 10/07/2022 Immunizations Immunization Date Immunization Notes Care Provider Dianne lacy 03-10-2021 SARS-COV-2 (COVID-19 ) vaccine, mRNA, spike protein, LNP, preservative free, 100 mcg/0.5mL dose [facility]ong Elizabeth [place] [facility] 02-25-2021 Influenza, injectabl e, Madin Ashby Canine Kidney, preservative free, quadrivalent Huong Elizabeth [place] [facility] 02-25-2021 influenza virus vaccine, unspecified formulation Emily Sanders APRN.MESMERIST Work Phone: [place] [address]-13-2021 SARS-COV-2 (COVID-19 ) vaccine, mRNA, spike protein, LNP, preservative free, 30 mcg/0.3mL dose Huong Bedollae [place] - [facility] 07-19-2020 SARS-COV-2 (COVID-19 ) vaccine, mRNA, spike protein, LNP, preservative free, 30 mcg/0.3mL dose Huong Bedollae [place] - [facility] 05-12-2019 hepatitis B vaccine, pediatric or pediatric/adolescent dosage Huong Bedollae [place] - [facility] 05-08-2019 Influenza, injectabl e, Madin Nati Canine Kidney, preservative free, quadrivalent Huong Elizabeth [place] - [facility] 05-08-2019 tetanus toxoid, redu nikhil diphtheria toxoid, and acellular pertussis vaccine, adsorbed Huong Bedollae [place] [facility] Payers Date Payer Category Payer Private Health Insurance 1.2 [id number] 2019 Unknown [employer] PPO OOS [id number] 2019-Present [phone] [id number] [place] [address] PPO [id number] 2018 Unknown [id number] 1.13.159.2 .[id number] 1964 Unknown [id number] 2.16.840.1.351757.3.579.2 .647 1964 Unknown [id number] 2.16.840.1.601375.3.579.2 .647 1964 Unknown [id number] 2.16.840.1.558482.3.579.2 .593 1964 Unknown [id number] 2.16.840.1.553839.3.579.2 .593 1964 Unknown [id number] 2.16.840.1.483231.3.579.2 .593 1964 Unknown [id number] 2.16.840.1.851709.3.579.2 .593 1964 Unknown [id number] 2.16.840.1.547643.3.579.2 .1259 1964 Unknown [id number] 2.16.840.1.636992.3.579.2 .1259 1964 Unknown [id number] 2.16.840.1.862761.3.579.2 .1259 1964 Unknown [id number] 2.16.840.1.336806.3.579.2 .1259 1964 Unknown [id number] 2.16.840.1.650820.3.579.2 .1259 1964 Unknown [id number] 2.16.840.1.865584.3.579.2 .9 1964 Unknown [id number] 2.16.840.1.449162.3.579.2 .1259 1959 Self-pay 1959 Unknown [id number] 1959 Unknown [id number] Unknown [id number] 2.16.840.1.069529.3.579.2 .531 Unknown [id number] 2.16840.1.589289.3.579.2 .531 Social History Date Type Detail Facility Start: 10-16-2019 End: 04-01-2024 Tobacco smoking status [facility] Ex-smoker [facility] Work Phone: Start: 10-01-1979 End: 10-01-2019 History of tobacco use Current smoker [facility] Work Phone: Start: 10-01-1979 End: 10-01-2019 History of tobacco use Cigarette Smoker [facility] Work Phone: Start: 10-16-2019 End: 09-08-2024 Cigarettes smoked current (pack per day) - Reported 0.5 [facility] Work Phone: Start: 10-16-2019 End: 04-01-2024 Tobacco use and exposure Smokeless tobacco non-user [facility] Work Phone: Start: 09-09-2019 History SDOH Alcohol Comment Rare [facility] Start: 10-03-2019 History SDOH Financial 5 [facility] Start: 10-03-2019 History SDOH Food Worry 1 [facility] Start: 10-03-2019 History SDOH Transport Med 2 [facility] Start: 1965 Sex Assigned At Not on file [facility] Start: 02-17-2020 End: 09-05-2021 Exposure to SARS-CoV-2 (event) Not sure [facility] Start: 1965 Sex Assigned At Female [facility] Start: 03-23-2020 End: 09-08-2024 Sex Assigned At [facility] Work Phone: How hard is it for y ou to pay for the very basics like food, housing, medical care, and heating Not hard at all [facility] Work Phone: (I/We) worried flavia er (my/our) food would run out before (I/we) got money to buy more. Never true [facility] Start: 03-17-2020 Gender identity Identifies as female gender (finding) [facility] Start: 03-17-2020 Sexual orientation Heterosexual (finding) [facility] Tobacco smoking stat us NHIS Tobacco smoking consumption unknown [facility] Start: 04-01-2024 End: 12-24-2024 Alcoholic beverage intake Ex-drinker (finding) [facility] Start: 05-11-2024 Sex Patient sex unknown (finding) [facility] Medical Equipment Procedure Code Equipment Code Equipment Original Text Equipment Identifier Dates Implant [id number] Start: 10-02-2019 Plate [employer] Iii 42mm Small Round .3mm Bone Closed Outer Frame - [id number] Start: 10-02-2019 Screw 1.5mm 4mm Bone Self Drill Cross Pin Craniomaxillofacial - [id number] Start: 10-02-2019 Clinical Notes 10-18-2018 to 12-24-2024 Jeremy Abernathy Yash, DP - 12/24/2024 9:45 AM Pamela Macias, DP - 09/08/2024 8:45 AM EDTAntshreya Macias, DPM - 08/08/2024 10:15 AM EDTAnthocristiano Macias, DPM - 04/18/2024 8:45 AM EST Note Date & Type Note Facility 12-24-2024 History of Present illness Narrative Images from the original note were not included. Subjective Patient ID: Shital Bryan is a 59 y.o. female who presents for Foot Callouses (Pt presents today for painful IPK Rt foot, she states when her feet swell it makes that area swell and become more bothersome. She would like a refill of the Meloxicam due to her ankle ''freezing'' up on her from time to time. /SS: 11). HPI Established patient returns to clinic for painful lesion of the plantar aspect of the right foot. Has been present for a few weeks and getting worse. Pain described as sharp, stabbing in nature. Patient also here with concern of feeling like her right foot is freezing up on me when she wakes up in the morning. Most days symptoms are improved significantly with meloxicam but she has run out of the prescription. She states that most of her pain is aggravated when she is walking up and down stairs with wrestling. Review of Systems Constitutional: Negative for activity change and appetite change. Respiratory: Negative for chest tightness and shortness of breath. Cardiovascular: Negative for chest pain. Musculoskeletal: Positive for gait problem. Negative for arthralgias. Skin: Negative for color change and wound. Neurological: Negative for weakness and numbness. Psychiatric/Behavioral: Negative for agitation and behavioral problems. Hematological: Does not bruise/bleed easily. Endocrine: Negative for cold intolerance and heat intolerance. Allergic/Immunologic: Negative for immunocompromised state. Past medical History Past Medical History: Diagnosis Date Brain tumor (HCC) 1979 Ear problems Medications Current Outpatient Medications: aspirin 81 MG EC tablet, Take 1 tablet by mouth Daily, Disp: , Rfl: metoprolol succinate XL (Toprol-XL) 25 MG 24 hr tablet, Take 1 tablet by mouth Daily, Disp: , Rfl: rosuvastatin (Crestor) 40 MG tablet, Take 1 tablet by mouth Daily, Disp: , Rfl: ammonium lactate (Amlactin) 12 % cream, Apply topically Daily (Patient not taking: Reported on 12/24/2024), Disp: 140 g, Rfl: 3 meloxicam (Mobic) 15 MG tablet, Take 1 tablet (15 mg) by mouth Daily, Disp: 90 tablet, Rfl: 0 Allergies Cephalexin Past Surgical History Past Surgical History: Procedure Laterality Date BRAIN SURGERY Bilateral 1979 tumor removed BRAIN SURGERY Bilateral 2019 Family History No family history on file. Objective Physical Exam Constitutional: General: She is not in acute distress. HENT: Head: Atraumatic. Cardiovascular: Pulses: Normal pulses. Musculoskeletal: Cervical back: No tenderness. Comments: Pes planovalgus morphology. Tenderness to palpation across dorsal midfoot bilaterally. Ankle dorsiflexion 0 degrees with the knee extended, flexed bilaterally. Skin: Capillary Refill: Capillary refill takes less than 2 seconds. Comments: Hyperkeratotic tissue with central core noted plantar 5th metatarsal base of the right foot. Skin lines passed through the lesion. No pinpoint, thrombosed capillaries. Tender with direct palpation. Neurological: General: No focal deficit present. Mental Status: She is alert. Psychiatric: Mood and Affect: Mood normal. Behavior: Behavior normal. Assessment/Plan ICD-10-CM 1. Primary osteoarthritis of right ankle M19.071 meloxicam (Mobic) 15 MG tablet 2. Porokeratosis Q82.8 3. Right foot pain M79.671 Patient was examined and evaluated. She has a lesion consistent with porokeratosis. She has responded well to chemical cauterization treatment in the past which alleviated symptomatology. Lesion is symptomatic and on an anatomic area that is prone to irritation. I have debrided the porokeratotic lesion sharply with a sterile #15 blade and enucleated the lesion until pinpoint bleeding was encountered. The base of the lesion was cauterized with a single 30 second application of 10% phenol. Lesion was packed with 55% salicylic acid and an occlusive offloading dressing was applied. I discussed preventative measures for calluses including daily debridements with a pumice stone or emery board. She has a ammonium lactate cream at home and she will apply this daily. Follow up as needed. In regards to her right foot pain she has known midfoot arthritis. She has responded very well to meloxicam therapy taken on an as-needed basis. New prescription sent to her pharmacy for meloxicam. I also recommend continued use of power step orthotics, avoid barefoot walking. Wear supportive shoes. Recommend daily stretching exercises which she has at home. Follow up as needed. This note was created with the assistance of a speech recognition program. While intending to generate a timely document that accurately reflects the content of the visit, no guarantee can be provided that every grammatical or spelling mistake has been or will be identified or corrected. Thank you for your understanding. Jeremy Macias DPM documented in this encounter [facility] 09-08-2024 History of Present illness Narrative Images from the original note were not included. Subjective Patient ID: Shital Bryan is a 58 y.o. female who presents for FUV ( Shital Bryan is a 58 y.o. female who presents for Foot Pain. Patient relates some improvement. SS: 10.5). HPI Established patient returns to clinic for follow up evaluation of bilateral foot pain. I was treating her for pes planovalgus deformity with midfoot arthritis. Symptoms worse on the right lower extremity. She completed oral anti-inflammatory regimen with significant improvement in symptoms. She states that occasionally she has some days where it really bothers her but other times she has no pain at all. Review of Systems Constitutional: Negative for activity change and appetite change. Respiratory: Negative for chest tightness and shortness of breath. Cardiovascular: Negative for chest pain. Musculoskeletal: Positive for arthralgias and gait problem. Skin: Negative for color change and wound. Neurological: Negative for weakness and numbness. Psychiatric/Behavioral: Negative for agitation and behavioral problems. Hematological: Does not bruise/bleed easily. Endocrine: Negative for cold intolerance and heat intolerance. Allergic/Immunologic: Negative for immunocompromised state. Past medical History Past Medical History: Diagnosis Date Brain tumor (CMS/HCC) 1979 Ear problems Medications Current Outpatient Medications: ammonium lactate (Amlactin) 12 % cream, Apply topically Daily, Disp: 140 g, Rfl: 3 aspirin 81 MG EC tablet, Take 1 tablet by mouth Daily, Disp: , Rfl: meloxicam (Mobic) 15 MG tablet, Take 1 tablet (15 mg) by mouth Daily, Disp: 90 tablet, Rfl: 0 methylPREDNISolone (Medrol Dospak) 4 MG tablets, Take as directed on package., Disp: 21 tablet, Rfl: 0 metoprolol succinate XL (Toprol-XL) 25 MG 24 hr tablet, Take 1 tablet by mouth Daily, Disp: , Rfl: rosuvastatin (Crestor) 40 MG tablet, Take 1 tablet by mouth Daily, Disp: , Rfl: Allergies Cephalexin Past Surgical History Past Surgical History: Procedure Laterality Date BRAIN SURGERY Bilateral 1979 tumor removed BRAIN SURGERY Bilateral 2019 Family History No family history on file. Objective Physical Exam Constitutional: Appearance: She is obese. HENT: Head: Normocephalic and atraumatic. Cardiovascular: Pulses: Normal pulses. Pulmonary: Effort: Pulmonary effort is normal. No respiratory distress. Abdominal: Palpations: There is no mass. Musculoskeletal: Cervical back: No rigidity. Comments: Weightbearing examination reveals pes planovalgus deformity with collapse of the medial longitudinal arch. Right foot: There is still some very mild tenderness to palpation along the posterior tibial tendon from the medial malleolus to its insertion on the navicular tuberosity. Minimal edema in this area without warmth. There is some mild tenderness to the spring ligament as well. There is some mild tenderness to the 2nd and 3rd tarsometatarsal joints. Negative grind test. No sinus tarsi tenderness. Muscle strength 5/5 for all quadrants. Ankle dorsiflexion 0 degrees with the knee extended, flexed. Subtalar joint range of motion smooth, nonpainful. Left foot: No tenderness to palpation. Muscle strength 5/5 for all quadrants. Ankle dorsiflexion 0 degrees with the knee extended, flexed. There does feel to be some mild osteophytes over the dorsal aspect of the 2nd and 3rd tarsometatarsal joints. Skin: Capillary Refill: Capillary refill takes less than 2 seconds. Findings: No lesion or rash. Neurological: Mental Status: She is alert. Comments: No loss of protective sensation, gross sensation intact. Psychiatric: Mood and Affect: Mood normal. Behavior: Behavior normal. Assessment/Plan ICD-10-CM 1. Primary osteoarthritis of both ankles M19.071 meloxicam (Mobic) 15 MG tablet M19.072 2. Valgus deformity, not elsewhere classified, right ankle M21.071 3. Posterior tibial tendinitis of right lower extremity M76.821 4. Equinus contracture of right ankle M24.571 5. 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 Difficulty walking R26.2 Patient examined and evaluated. Reviewed previous imaging studies in detail. Overall she has made significant improvement. She no longer has pain every single day. Discussed that she will be at high-risk for recurrence of these issues due to the degenerative changes of the midfoot as well as her pes planovalgus deformity. She will continue daily stretching exercises as well as supportive shoes and power step orthoses. I also discussed and recommended an ASO brace. I have recommended an ASO brace for stabilization and limitation of motion of the ankle and rearfoot. Patient agreed and was fitted for the appropriate brace. Goals of therapy include prevent further injury, stabilization, reduction of stress and pressure to the injured area. Anticipated time of use - at least indefinite. At the time of dispensing it is suitable and not substandard. Patient is able to apply the brace independently. It is comfortable to walk and fits inside the shoe. She will wear the brace during periods of heavy activity or when the tendon is really bothering her. Recommend longer course of meloxicam that she can take on an as-needed basis. Discuss surgical reconstruction if she continues to have issues going forward but this time she has no interest. For now I will see her back as needed. This note was created with the assistance of a speech recognition program. While intending to generate a timely document that accurately reflects the content of the visit, no guarantee can be provided that every grammatical or spelling mistake has been or will be identified or corrected. Thank you for your understanding. Jeremy Macias DPM documented in this encounter [facility] 08-08-2024 History of Present illness Narrative Images from the original note were not included. Subjective Patient ID: Shital Bryan is a 58 y.o. female who presents for Foot Pain (Established pt presents today with BL foot pain, right foot is worse. Pt states she noticed it about 2-3 months ago, after working overtime at work for a few days in a row. Pain is aggravated with being on feet more. Pt takes motrin for pain. SS: 10.5). HPI Established patient presents to clinic with concern of bilateral foot pain, right worse than the left. She describes aching sensations within the midfoot region that are worse at the end of her workday. She has not tried any treatment but does note that her power step sandals seem to help. She also wears power step orthotics in her work shoes. Symptoms have been going on for about 2-3 months and getting worse. Review of Systems Constitutional: Negative for activity change and appetite change. Respiratory: Negative for chest tightness and shortness of breath. Cardiovascular: Negative for chest pain. Musculoskeletal: Positive for arthralgias and gait problem. Skin: Negative for color change and wound. Neurological: Negative for weakness and numbness. Psychiatric/Behavioral: Negative for agitation and behavioral problems. Hematological: Does not bruise/bleed easily. Endocrine: Negative for cold intolerance and heat intolerance. Allergic/Immunologic: Negative for immunocompromised state. Past medical History Past Medical History: Diagnosis Date Brain tumor ([facility]/HCC) 1979 Ear problems Medications Current Outpatient Medications: ammonium lactate (Amlactin) 12 % cream, Apply topically Daily, Disp: 140 g, Rfl: 3 aspirin 81 MG EC tablet, Take 1 tablet by mouth Daily, Disp: , Rfl: metoprolol succinate XL (Toprol-XL) 25 MG 24 hr tablet, Take 1 tablet by mouth Daily, Disp: , Rfl: rosuvastatin (Crestor) 40 MG tablet, Take 1 tablet by mouth Daily, Disp: , Rfl: meloxicam (Mobic) 15 MG tablet, Take 1 tablet (15 mg) by mouth Daily for 21 days, Disp: 21 tablet, Rfl: 0 methylPREDNISolone (Medrol Dospak) 4 MG tablets, Take as directed on package., Disp: 21 tablet, Rfl: 0 Allergies Cephalexin Past Surgical History Past Surgical History: Procedure Laterality Date BRAIN SURGERY Bilateral 1979 tumor removed BRAIN SURGERY Bilateral 2019 Family History No family history on file. Objective Physical Exam Constitutional: Appearance: She is obese. HENT: Head: Normocephalic and atraumatic. Cardiovascular: Pulses: Normal pulses. Pulmonary: Effort: Pulmonary effort is normal. No respiratory distress. Abdominal: Palpations: There is no mass. Musculoskeletal: Cervical back: No rigidity. Comments: Weightbearing examination reveals pes planovalgus deformity with collapse of the medial longitudinal arch. Right foot: There is some mild tenderness to palpation along the posterior tibial tendon from the medial malleolus to its insertion on the navicular tuberosity. Minimal edema in this area without warmth. There is some mild tenderness to the 2nd and 3rd tarsometatarsal joints. Negative grind test. No sinus tarsi tenderness. Muscle strength 5/5 for all quadrants. Ankle dorsiflexion 0 degrees with the knee extended, flexed. Subtalar joint range of motion smooth, nonpainful. Left foot: I can not recreate any point tenderness. Muscle strength 5/5 for all quadrants. Ankle dorsiflexion 0 degrees with the knee extended, flexed. There does feel to be some mild osteophytes over the dorsal aspect of the 2nd and 3rd tarsometatarsal joints. Skin: Capillary Refill: Capillary refill takes less than 2 seconds. Findings: No lesion or rash. Neurological: Mental Status: She is alert. Comments: No loss of protective sensation, gross sensation intact. Psychiatric: Mood and Affect: Mood normal. Behavior: Behavior normal. XR foot 3+ views right Imaging Result: AP, medial oblique, lateral views are weight-bearing. Significantly decreased calcaneal inclination. Increased talar declination. First ray elevation. Joint space narrowing most notably of the 2nd and 3rd tarsometatarsal joints. Mild subchondral sclerosis. No significant periarticular osteophytes at this time. No fractures or dislocations. XR foot 3+ views left Imaging Result: AP, medial oblique, lateral views are weight-bearing. Decreased calcaneal inclination, increased talar declination. Enthesophyte at the insertion of the plantar fascia. No fractures or dislocations noted. Very mild joint space narrowing of the 2nd and 3rd tarsometatarsal joints. Assessment/Plan ICD-10-CM 1. Valgus deformity, not elsewhere classified, right ankle M21.071 XR foot 3+ views right 2. Valgus deformity, not elsewhere classified, left ankle M21.072 XR foot 3+ views left 3. Primary osteoarthritis of both ankles M19.071 XR foot 3+ views right M19.072 XR foot 3+ views left meloxicam (Mobic) 15 MG tablet methylPREDNISolone (Medrol Dospak) 4 MG tablets 4. Pain in both feet M79.671 XR foot 3+ views right M79.672 XR foot 3+ views left 5. Equinus contracture of left ankle M24.572 6. Equinus contracture of right ankle M24.571 Patient examined and evaluated. Three views of bilateral feet taken in office today and I discussed my findings. Patient has pes planovalgus deformity which seems to be leading to the symptomatology present. She has a very high demand job and I recommend that she continue to use the power step orthotics in her shoes. Avoid barefoot walking as much as possible. Recommend supportive athletic shoe at all times with a power step insert. Patient given a coupon for [employer] today. I also recommend a Medrol Dosepak and meloxicam for 3 weeks to reduce inflammation and the symptomatology across the midfoot. She does have some mild degenerative changes across the midfoot especially on the right side. Lastly I recommend stretching exercises focusing on gastrocnemius contraction and intrinsic muscle strengthening. Home exercise program printed off and given to her today. I would like to follow up with her in 1 month. If symptoms persist we could consider cortisone injection. This note was created with the assistance of a speech recognition program. While intending to generate a timely document that accurately reflects the content of the visit, no guarantee can be provided that every grammatical or spelling mistake has been or will be identified or corrected. Thank you for your understanding. Jeremy Macias DPM documented in this encounter [facility] 04-18-2024 History of Present illness Narrative Images from the original note were not included. Subjective Patient ID: Shital Bryan is a 58 y.o. female who presents for Plantar Warts (Leonora Bryan 58yo Patient presents with Plantar wart. Patient noticed 6 months ago. Right foot, ball of foot. Left foot 2nd toe is ING, medial border, pain for at least 6-8 months. SS 10). HPI Established patient presents to clinic with multiple concerns. Patient is primarily concerned about what she is calling a plantar wart on the plantar aspect of her right foot. She states it has been there for approximately 6 months, maybe more. She notes it is painful with walking, standing. Worse when she is barefoot. Additionally patient concerned about an ingrown toenail on the medial aspect of the left 2nd toe. She has tried trimming the toenail herself but continues to have some discomfort. She denies drainage or redness. Review of Systems Constitutional: Negative for activity change and appetite change. Respiratory: Negative for chest tightness and shortness of breath. Cardiovascular: Negative for chest pain. Musculoskeletal: Positive for gait problem. Negative for arthralgias. Skin: Negative for color change and wound. Neurological: Negative for weakness and numbness. Psychiatric/Behavioral: Negative for agitation and behavioral problems. Hematological: Does not bruise/bleed easily. Endocrine: Negative for cold intolerance and heat intolerance. Allergic/Immunologic: Negative for immunocompromised state. Past medical History Past Medical History: Diagnosis Date Brain tumor (CMS/HCC) 1979 Ear problems Medications Current Outpatient Medications: ammonium lactate (Amlactin) 12 % cream, Apply topically Daily, Disp: 140 g, Rfl: 3 aspirin 81 MG EC tablet, Take 1 tablet by mouth Daily, Disp: , Rfl: metoprolol succinate XL (Toprol-XL) 25 MG 24 hr tablet, Take 1 tablet by mouth Daily, Disp: , Rfl: rosuvastatin (Crestor) 40 MG tablet, Take 1 tablet by mouth Daily, Disp: , Rfl: Allergies Cephalexin Past Surgical History Past Surgical History: Procedure Laterality Date BRAIN SURGERY Bilateral 1979 tumor removed BRAIN SURGERY Bilateral 2019 Family History No family history on file. Objective Physical Exam Exam conducted with a continuing education dean present. Constitutional: General: She is not in acute distress. HENT: Head: Atraumatic. Cardiovascular: Pulses: Normal pulses. Musculoskeletal: Cervical back: No tenderness. Skin: Capillary Refill: Capillary refill takes less than 2 seconds. Comments: Hyperkeratotic tissue with central core noted plantar 5th metatarsal base of the right foot. Skin lines passed through the lesion. No pinpoint, thrombosed capillaries. Tender with direct palpation. Left 2nd toenail is thickened, and impinging upon the medial border which is slightly tender. No drainage or cellulitis. Neurological: General: No focal deficit present. Mental Status: She is alert. Psychiatric: Mood and Affect: Mood normal. Behavior: Behavior normal. Assessment/Plan ICD-10-CM 1. Porokeratosis Q82.8 ammonium lactate (Amlactin) 12 % cream 2. Right foot pain M79.671 3. Ingrown toenail L60.0 4. Left foot pain M79.672 Patient was examined and evaluated. She has a lesion consistent with porokeratosis. I discussed causes and treatment options for porokeratotic lesions. Lesion is symptomatic and on an anatomic area that is prone to irritation. I have debrided the porokeratotic lesion sharply with a sterile #15 blade and enucleated the lesion until pinpoint bleeding was encountered. The base of the lesion was cauterized with a single 30 second application of 10% phenol. Lesion was packed with 55% salicylic acid and an occlusive offloading dressing was applied. I discussed preventative measures for calluses including daily debridements with a pumice stone or emery board. I have recommended ammonium lactate cream daily to the hyperkeratotic tissue to encourage sloughing of the skin. Prescription was sent to patient's pharmacy. For now we will follow-up as needed. Additionally patient had concern about an ingrown toenail along the medial border of the left 2nd toe. It had some mild impingement and was slightly thickened. I debrided the nail in length and thickness without incident. She noted some relief after debridement. Discussed treatment options going forward including partial versus total phenol matricectomy versus continued observation and regular debridement. For now we will see her back as needed. This note was created with the assistance of a speech recognition program. While intending to generate a timely document that accurately reflects the content of the visit, no guarantee can be provided that every grammatical or spelling mistake has been or will be identified or corrected. Thank you for your understanding. Jeremy Macias DPM documented in this encounter [facility] 04-01-2024 History of Present illness Narrative Images from the original note were not included. Subjective Patient ID: Leonora Bryan is a 58 y.o. female who presents for Cerumen Impaction (Ear cleaning) No family history on file. Active Ambulatory Problems Diagnosis Date Noted No Active Ambulatory Problems Resolved Ambulatory Problems Diagnosis Date Noted No Resolved Ambulatory Problems Past Medical History: Diagnosis Date Brain tumor (CMS/HCC) 1979 Ear problems Past Surgical History: Procedure Laterality Date BRAIN SURGERY Bilateral 1979 tumor removed BRAIN SURGERY Bilateral 2019 Allergies Allergen Reactions Cephalexin Hives Current Outpatient Medications on File Prior to Visit Medication Sig Dispense Refill aspirin 81 MG EC tablet Take 1 tablet by mouth Daily metoprolol succinate XL (Toprol-XL) 25 MG 24 hr tablet Take 1 tablet by mouth Daily rosuvastatin (Crestor) 40 MG tablet Take 1 tablet by mouth Daily No current facility-administered medications on file prior to visit. Objective Last Recorded Vitals Vitals: 04/01/24 0926 BP: 107/79 ENT Physical Exam Ear Ear comments: RT normal. LT cerumen impaction Patient ID: Leonora Bryan is a 58 y.o. female. Procedures Cerumen was removed from the left ear using binocular microscopy under micro with foreceps Assessment/Plan Diagnoses and all orders for this visit: Left ear impacted cerumen LT ear debrided documented in this encounter [facility] 02-27-2024 History of Present illness Narrative Images from the original note were not included. [facility] [place] [facility] NEURO-ONCOLOGY VIRTUAL VISIT NOTE I have communicated my name and active licensure. The patient's identity and physical location were verified at the time of this visit. Either the patient or their legal field sales representative has been informed of the risks and benefits of -- and alternatives to -- treatment through a remote evaluation and consents to proceed with the evaluation remotely. This is a virtual visit using [employer] video visit. It required patient-provider interaction for the medical decision making as documented below. 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 She is seeing an analytic programmer for hearing loss and ENT. She received [...] 15 lbs intentionally. Her dizziness has improved. 02/27/24 She presents with her daughter today. She is doing well. No new complaints. 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 Huong Shay FAMILY HISTORY Problem Relation Age of [...] Report MRI BRAIN WO/W IVCON Exam End: 02/20/2024 10:09 AM (Final result) Narrative: * * *Final Report* * * DATE OF EXAM: Feb 20 2024 10:09AM [facility] 0295 - MRI BRAIN WO/W IVCON / PROCEDURE REASON: Benign neoplasm of meninges (HCC) * * * * Physician Interpretation * * * * EXAMINATION: MRI BRAIN WO/W IVCON CLINICAL HISTORY: Benign neoplasm of meninges (HCC) TECHNIQUE: Routine brain MRI protocol without and with contrast including diffusion images. MQ: [id number] Contrast: 18 mL Dotarem IV COMPARISON: MRI brain 09/05/2021 RESULT: Acute Change: There is no evidence of restricted diffusion to suggest an acute infarct. Hemorrhage: There is a susceptibility in the resection cavity and along the bilateral cerebellar folia, likely due to chronic blood products. Mass Lesion/ Mass Effect: Again seen are postoperative changes status post left suboccipital craniectomy with encephalomalacia in the left cerebellar hemisphere, with small amount of overlying extra-axial fluid. Adjacent T2/FLAIR hyperintensity again noted, likely due to gliosis. No significant mass effect. Small amount of encephalomalacia in the cerebellar vermis extending to the mesial right cerebellar hemisphere is again noted and unchanged. Additionally, chronic right posterior fossa extra-axial fluid collection is again noted measuring up to 5.2 cm in greatest transverse dimension, also unchanged. No abnormal intracranial enhancement to indicate residual or recurrent tumor. Chronic Change: Scattered patchy areas of increased T2 and FLAIR signal are present in the supratentorial white matter which is a nonspecific finding but likely represents mild chronic microvascular ischemia. Parenchyma: No significant volume loss for age. Ventricles: Ventriculomegaly corresponds to the degree of parenchymal volume loss. Skull Base: Hypothalamic and pituitary region are grossly normal. Craniocervical junction is normal. No significant marrow replacement process. Vasculature: Major intracranial arterial structures, and dural venous sinuses show typical flow void, suggesting patency by spin echo criteria. Other: Minimal mucosal thickening in the right maxillary sinus. Moderate degenerative changes of the left TMJ. The orbits and extracranial soft tissues are unremarkable. Impression: IMPRESSION: Postsurgical and chronic changes similar to the prior exam, without evidence for residual or recurrent tumor. Junior Sales Representative: PSCB Transcribe Date/Time: Feb 20 2024 10:09A Dictated by : STEPHANIE FLEMING MD This examination was interpreted and the report reviewed and electronically signed by: STEPHANIE FLEMING MD on Feb 20 2024 10:21AM EST MEDICAL DECISION MAKING Assessment & Plan 1. Left posterior petrous meningioma, WHO Grade 1 Ki-67 3%- s/p Bailey Grade 2 resection 10/02/19 - MRI brain today appears to no recurrence of left posterior petrous meningioma - Images reviewed with the patient - Recommend follow up appointment with new MRI brain in 24 months - Reviewed signs and symptoms that would prompt sooner evaluation - The patient has our contact information and was advised to call if new symptoms, questions or concerns arise prior to next scheduled visit. - All questions were answered. I spent a total of 10 minutes on the date of the service which included preparing to see the patient, [id number] patient care, completing clinical documentation, obtaining and/or reviewing separately obtained history, counseling and educating the patient/family/caregiver, ordering medications, tests, or procedures, communicating results to the patient/family/caregiver and care coordination (not separately reported). Emily Sanders APRN.CNP Certified Nurse Practitioner cc: Reynold Goss MD--EPIC documented in this encounter [facility] 02-27-2024 Note HNO ID: [id number] Author: EMILY SANDERS APRN.CNP Service: ? Author Type: Nurse Practitioner Type: Progress Notes Filed: 02/27/2024 13:58 Note Text: Neurological [place] [facility] NEURO-ONCOLOGY VIRTUAL VISIT NOTE I have communicated my name and active licensure. The patient's identity and physical location were verified at the time of this visit. Either the patient or their legal field sales representative has been informed of the risks and benefits of -- and alternatives to -- treatment through a remote evaluation and consents to proceed with the evaluation remotely. This is a virtual visit using [employer] video visit. It required patient-provider interaction for the medical decision making as documented below. 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 She is seeing an analytic programmer for hearing loss and ENT. She received [...] 15 lbs intentionally. Her dizziness has improved. 02/27/24 She presents with her daughter today. She is doing well. No new complaints. 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 Huong Shay FAMILY HISTORY Problem Relation Age of [...] of nausea, vomiting, dysphagia or abdominal pain. Genitou (more content not included)... [facility] 02-20-2024 History of Present illness Narrative Radiology Service Progress Note DATE OF SERVICE: February 20, 2024 TIME: 9:42 AM PATIENT IDENTITY VERIFICATION COMPLETED USING TWO (2) STANDARD IDENTIFIERS: Name and Date of confirmed by patient verbally. FALL SCREENING: Has the patient had 2 falls in the last year or 1 fall with injury or currently using an Ambulatory Assistive Device (Walker, Cane, Wheelchair, Crutches, etc.)? No PATIENT GENDER DATA: Female. status: : No status: NO. PATIENT RELEVANT IMPLANT DATA REVIEWED: Yes PATIENT PRESENTS WITH AN IMPLANTABLE OR ATTACHED LAP MAKER: No ALLERGIES: Reviewed and unchanged CONTRAST ALLERGY: NO. EXAM: MRI - CONTRAST TYPE: GROUP II PERIPHERAL IV DATA: Ambulatory: A peripheral IV was started in the Left antecubital site with a Angio cath: 24 gauge. RADIOLOGY DEPARTMENT: MR; Exam(s) Completed: Head: Routine Brain SIGNATURE: RT Nichelle(R) PATIENT NAME: Leonora Bryan DATE: February 20, 2024 TIME: 9:42 AM documented in this encounter [facility] 02-20-2024 Note HNO ID: [id number] Author: SORAIDA CRAWFORD RT(Keven) Service: ? Author Type: Technologist Type: Progress Notes Filed: 02/20/2024 09:43 Note Text: Radiology Service Progress Note DATE OF SERVICE: February 20, 2024 TIME: 9:42 AM PATIENT IDENTITY VERIFICATION COMPLETED USING TWO (2) STANDARD IDENTIFIERS: Name and Date of confirmed by patient verbally. FALL SCREENING: Has the patient had 2 falls in the last year or 1 fall with injury or currently using an Ambulatory Assistive Device (Walker, Cane, Wheelchair, Crutches, etc.)? No PATIENT GENDER DATA: Female. status: : No status: NO. PATIENT RELEVANT IMPLANT DATA REVIEWED: Yes PATIENT PRESENTS WITH AN IMPLANTABLE OR ATTACHED LAP MAKER: No ALLERGIES: Reviewed and unchanged CONTRAST ALLERGY: NO. EXAM: MRI - CONTRAST TYPE: GROUP II PERIPHERAL IV DATA: Ambulatory: A peripheral IV was started in the Left antecubital site with a Angio cath: 24 gauge. RADIOLOGY DEPARTMENT: MR; Exam(s) Completed: Head: Routine Brain SIGNATURE: RT Nichelle(R) PATIENT NAME: Leonora Bryan DATE: February 20, 2024 TIME: 9:42 AM [facility] 01-25-2024 Note [place] [facility] - [facility] Subjective Leonora Bryan is a 58 y.o. year old female patient being seen for 1 year follow up CAD and hyperlipidemia. She is no longer taking isosorbide because she hasn't had cardiac symptoms. Denies chest pain, SOB, and palpitations. Had routine labs w/ lipid panel in September 2023. She says PCP told her yesterday she had a murmur. Patient Active Problem List Diagnosis Chest pain Coronary atherosclerosis Meningioma (CMS/HCC) Mixed conductive and sensorineural hearing loss of both ears Vestibular dysfunction of left ear Mixed hyperlipidemia Family History Problem Relation Name Age of Onset Heart attack Father Social History Tobacco Use Smoking status: Former Packs/day: 1.00 Years: 25.00 Additional pack years: 0.00 Total pack years: 25.00 Types: Cigarettes Quit date: 2019 Years since quittin.7 Smokeless tobacco: Never Substance Use Topics Alcohol use: Yes Comment: socially- not daily Drug use: Never HPI Leonora is seen in follow-up. She is a 58-year-old woman with coronary artery disease diagnosed by cardiac catheterization in 2020 with 40% stenosis in the mid RCA and sluggish flow in the coronary arterial tree. She also has hyperlipidemia on treatment. She has history of brain tumors s/p surgery and radiation in 1979 and then in 2019 with only surgery. She has been doing well. she denies chest pain, shortness of breath, palpitations, dizziness, syncope and leg edema. she has good exercise tolerance. There is no claudication. Review of Systems Cardiovascular: Negative for chest pain, dyspnea on exertion, irregular heartbeat, leg swelling, orthopnea, palpitations and syncope. Respiratory: Negative for cough and shortness of breath. Musculoskeletal: Negative for arthritis, falls and neck pain. Gastrointestinal: Negative for diarrhea and dysphagia. Neurological: Negative for light-headedness and loss of balance. Objective Visit Vitals BP 102/70 (BP Location: Left arm, Patient Position: Sitting) Pulse 65 Ht 1.676 m (5' 6 ) Wt 91.6 kg (202 lb) SpO2 97% BMI 32.60 kg/m??? Smoking Status Former BSA 2.07 m??? Physical Exam Constitutional: Appearance: She is well-developed. She is not ill-appearing. HENT: Head: Normocephalic and atraumatic. Nose: Nose normal. Eyes: General: No scleral icterus. Pupils: Pupils are equal, round, and reactive to light. Neck: Thyroid: No thyromegaly. Vascular: No JVD. Cardiovascular: Rate and Rhythm: Normal rate and regular rhythm. Pulses: Radial pulses are 2+ on the right side and 2+ on the left side. Heart sounds: Murmur heard. Systolic (LLSB) murmur is present with a grade of 2/6. No friction rub. No gallop. Pulmonary: Effort: Pulmonary effort is normal. No respiratory distress. Breath sounds: Normal breath sounds. No wheezing or rales. Chest: Chest wall: No tenderness. Abdominal: General: Bowel sounds are normal. There is no distension. Palpations: Abdomen is soft. Tenderness: There is no abdominal tenderness. Musculoskeletal: General: No swelling. Cervical back: Neck supple. Skin: General: Skin is warm and dry. Neurological: General: No focal deficit present. Mental Status: She is alert and oriented to person, place, and time. Psychiatric: Mood and Affect: Mood normal. Behavior: Behavior is cooperative. Judgment: Judgment normal. Allergies Allergies Allergen Reactions Cephalexin Hives Medications Current Outpatient Medications: aspirin 81 mg EC tablet, aspirin 81 mg tablet,delayed release TAKE 1 TABLET BY MOUTH EVERY DAY, Disp: 90 tablet, Rfl: 3 cholecalciferol (Vitamin D3) 10 MCG (400 UNIT) tablet, Take 400 Units by mouth in the morning., Disp: , Rfl: metoprolol succinate XL (Toprol-XL) 25 mg 24 hr tablet, metoprolol succinate ER 25 mg tablet,extended release 24 hr TAKE 1 TABLET BY MOUTH EVERY DAY, Disp: 90 tablet, Rfl: 3 rosuvastatin (Crestor) 40 mg tablet, rosuvastatin 40 mg tablet TAKE 1 TABLET BY MOUTH EVERY DAY, Disp: 90 tablet, Rfl: 3 diclofenac (Voltaren) 75 mg EC tablet, Take 75 mg by mouth in the morning., Disp: , Rfl: hydroxychloroquine (Plaquenil) 200 mg tablet, hydroxychloroquine 200 mg tablet TAKE 1 TABLET BY MOUTH EVERY DAY, Disp: , Rfl: Recent Labs No visits with results within 6 Month(s) from this visit. Latest known visit with results is: [facility] Encounter on 12/08/2020 Component Date Value Ventricular Rate 12/08/2020 67 Atrial Rate 12/08/2020 67 OR Interval 12/08/2020 140 QRS DURATION 12/08/2020 74 QT Interval 12/08/2020 402 QTC CALCULATION(BAZETT) 12/08/2020 424 P [place] 12/08/2020 57 R-[place] 12/08/2020 36 T Wave [place] 12/08/2020 28 Diagnosis 12/08/2020 Value:Normal sinus rhythm Normal ECG No previous ECGs available Confirmed by Singh PEREYRA, L.S. (2) on 12/08/2020 10:44:43 AM Blood testing 02/20/2020: Hemoglobin 14.1, platelets 102, potassium 3.9, BUN 19, (more content not included)... [facility] 06-08-2023 Evaluation note Encounter Date Diagnosis Assessment [...] understanding and is agreeable to treatment plan. [employer] Other 05-11-2022 History of Present illness Narrative* Emily Sanders APRN.MESMERIST - 09/07/2021 11:00 AM EDT Images from the original note were not included. Neurological [place] [facility] NEURO-ONCOLOGY VIRTUAL VISIT NOTE This is a virtual visit using [employer] video visit. It required patient-provider interaction for themedical decision making as documented below. 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 She is seeing an analytic programmer for hearing loss and ENT. She received [...] (HCC) 09/26/1979 Low Grade s/p Craniotomy at [facility] by Dr. 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 This information is taken directly from the circuit recorder system. s/p Left retrosigmoid approach for resection. [...] Stable findings of remote left-sided meningioma resection.. [place] extra-axial fluid present along lateral margins of [...] Concordant findings on the post gadolinium scans. Junior Sales Representative: PSCB Transcribe Date/Time: Sep 05 2021 11:17A [...] which included preparing to see the patient, [id number] patient care, completing clinical documentation, obtaining and/or reviewing separately obtained history, counseling and educating the patient/family/caregiver, ordering medications, marlys ts, or procedures, communicating results to the patient/family/caregiver and care coordination (notseparately reported). Emily Sanders APRN.FLACO Certified Nurse Practitioner cc: Reynold Goss MD--EPIC [facility] History of Present illness Narrative* Daniela Ramírez CT - 09/05/2021 10:00 AM EDT Radiology Service Progress Note DATE OF SERVICE: [...] MR; Exam(s) Completed: Head: Routine Brain SIGNATURE: FRANSICO Camrona PATIENT NAME: Leonora Bryan DATE: September 05, 2021 TIME: 9:58 AM [facility] History of Present illness Narrative* Chele Sanchez, blind installer - 09/07/2020 11:20 AM EDT Radiology Service Progress Note DATE OF SERVICE: September 07, 2020 TIME: 11:23 AM PATIENT IDENTITY VERIFICATION COMPLETED USING TWO [...] in the Left antecubital site with a Butterfly: 23 gauge. RADIOLOGY DEPARTMENT: MR; Exam(s) Completed: Head: Routine Brain SIGNATURE: JULIÁN Perry PATIENT NAME: Leonora Bryan DATE: September 07, 2020 TIME: 11:23 AM documented in this encounter[facility] History of Present illness Narrative* Chele Sanchez Tech (Tech) - 03/18/2020 10:00 AM EST Radiology Service Progress Note DATE OF SERVICE: March 18, 2020 TIME: 9:57 AM PATIENT IDENTITY VERIFICATION COMPLETED USING TWO [...] in the Left antecubital site with a Butterfly: 23 gauge. RADIOLOGY DEPARTMENT: MR; Exam(s) Completed: Head: Routine Brain SIGNATURE: Tess Perry PATIENT NAME: Leonora Bryan DATE: March 18, 2020 TIME: 9:57 AM documented [facility] this encounter[facility] History of Past illness Narrative* Problem Noted Date Resolved Date Compression of brain 08/04/2019 11/18/2019 Last Assessment & Plan: Present on admission See meningioma POC Improved postop Cerebellar edema 08/04/2019 11/18/2019 Last Assessment & Plan: Present on admission Clinically significant cerebral edema treating with decadron 4bid (SSI, PPI) with prison taper plan documented as of this encounter (statuses as of 09/07/2021) [facility] History general Narrative - ReportedNo medical history recorded. Gynecological History Statement/Question Response Date of Last Colonoscopy 10/18/2018 Date of Last Mammogram 04/10/2022 Most Recent Bone Density 03/14/2023 Sexually Active? N Obstetrics History GPAL:G 3 P 0 0 0 3 Type Value Multiple Births 0 Full Term 0 Induced 0 Spontaneous 0 Premature 0 Living 3 Ectopics 0 Total 3 [place] - [facility] Evaluation note* Diagnosis Benign neoplasm of brain, unspecified brain region (HCC) [facility] noteNo assessment information availableAvita Health System Work Phone: Evaluation noteNo InformationNort Twicketer Other Evaluation note* Diagnosis Benign neoplasm of meninges (HCC)- Primary Benign neoplasm of cerebral meninges documented in this encounter [facility] note* Diagnosis Meningioma (HCC)- Primary Benign neoplasm of cerebral meninges Meningioma (HCC) Benign neoplasm of cerebral meninges Postoperative pain Other acute postoperative pain Benign neoplasm of infratentorial region of brain (HCC) Benign neoplasm of brain [facility]* Diagnosis Meningioma (HCC)- Primary Benign neoplasm of cerebral meninges Meningioma (HCC) Benign neoplasm of cerebral meninges Postoperative pain Other acute postoperative pain Benign neoplasm of brain, unspecified brain region (HCC) [facility]* Diagnosis Meningioma (HCC)- Primary Benign neoplasm of cerebral meninges Meningioma (HCC) Benign neoplasm of cerebral meninges Postoperative pain Other acute postoperative pain Meningioma (HCC) Benign neoplasm of cerebral meninges [facility]* Diagnosis Meningioma (HCC)- Primary Benign neoplasm of cerebral meninges Meningioma (HCC) Benign neoplasm of cerebral meninges Postoperative pain Other acute postoperative pain Benign neoplasm of meninges (HCC) Benign neoplasm of cerebral meninges [facility] Meningioma (HCC)- Primary Benign neoplasm of cerebral meninges Meningioma (HCC) Benign neoplasm of cerebral meninges Postoperative pain Other acute postoperative pain Meningioma, cerebral (HCC)- Primary [facility] Diagnosis Left ear impacted cerumen- Primary Impacted cerumen [facility] Diagnosis Porokeratosis- Primary Other specified congenital anomaly of skin Right foot pain Pain in soft tissues of limb Ingrown toenail Ingrowing nail Left foot pain Pain in soft tissues of limb [facility] Diagnosis Valgus deformity, not elsewhere classified, right ankle- Primary Valgus deformity, not elsewhere classified, left ankle Primary osteoarthritis of both ankles Pain in both feet Equinus contracture of left ankle Equinus contracture of right ankle [facility] Diagnosis Primary osteoarthritis of both ankles- Primary Valgus deformity, not elsewhere classified, right ankle Posterior tibial tendinitis of right lower extremity Equinus contracture of right ankle Instability of right ankle joint Difficulty walking Difficulty in walking [facility] Encounter Date Assessment Date Assessment LastModified by Organization Details LastModified Time 10/13/2024 10/13/2024 Patient presents today for blood test noted below ordered by: Dr. Elizabeth Procedure explained and patient verbalized understanding of the procedure and labs to be drawn today. Venipuncture performed using aseptic technique in the side of left antecubital. Venipuncture successful on the first attempt without complications. If complications: Dressing applied to the site(s) and pressure held. No signs or symptoms of venipuncture complications observed. Lab results sent to [facility] Provider. Patient left ambulatory with no complaints of pain or discomfort voiced. [email or web address] Not available 10/13/2024 07:03:24 [place] - [facility] Evaluation note No assessment recorded. [place] - [facility] Evaluation note* Diagnosis Primary osteoarthritis of right ankle- Primary Porokeratosis Other specified congenital anomaly of skin Right foot pain Pain in soft tissues of limb [facility] - [facility]orted* Type Description Date Medical History osteopenia Surgical History brain surgery 2019 Located Within [facility] Personal Medicine Other History general Narrative - ReportedNo medical history recorded. Gynecological History Statement/Question Response Sexually Active? 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) Procedures MRI BRAIN WO/W IVCON MRI BRAIN Emily Dsouza APRN.MESMERIST [address] [place] [address] Mr [facility] [place] [address] Referral ID Status Reason Start Date Expiration Date V isits Requested Visits Authorized [id number] Closed Auto-Generate d Referral 08/22/2021 10/21/2021 1 1 [facility] for referral (narrative)* Diagnostic Procedure Only (Routine) - Closed Specialty Diagnoses / Procedures Referred By Contac t Referred To Contact MR IMAGING Diagnoses Benign neoplasm of brain, unspecified brain region (HCC) Procedures MRI BRAIN WO/W IVCON MRI BRAIN DEMETRIO Emily Sanders APRN.CNP [address] [employer] [place] [id number] [facility] [place] [address] Referral ID Status Reason Start Date Expiration Date V isits Requested Visits Authorized [id number] Closed Auto-Generate d Referral 08/26/2020 04/29/2021 1 1 [facility] for referral (narrative)* Diagnostic Procedure Only (Routine) - Closed Specialty Diagnoses / Procedures Referred By Contac t Referred To Contact MR IMAGING Diagnoses Meningioma (HCC) Procedures MRI BRAIN WO/W IVCON MRI BRAIN COMBO Cheyenne Lo APRN.FLACO [address] [place] [address] [place] [address] Referral ID Status Reason Start Date Expiration Date V isits Requested Visits Authorized [id number] Closed Auto-Generate d Referral 03/11/2020 04/29/2020 1 1 [facility] for referral (narrative)* Diagnostic Procedure Only (Routine) - Closed Specialty Diagnoses / Procedures Referred By Contac t Referred To Contact MR IMAGING Diagnoses Benign neoplasm of meninges (HCC) Procedures MRI BRAIN WO/W IVCON MRI BRAIN BRAIN STEM W/O W/CONTRAST MATERIAL Emily Sanders APRN.MESMERIST [address] [place] [address] [place] [address] Referral ID Status Reason Start Date Expiration Date V isits Requested Visits Authorized [id number] Closed Auto-Generate d Referral 11/14/2023 12/13/2024 1 1 [facility] for visit Narrative* Diagnostic Procedure Only (Routine) - Closed Specialty Diagnoses / Procedures Referred By Contac t Referred To Contact MR IMAGING Diagnoses Benign neoplasm of meninges (HCC) Procedures MRI BRAIN WO/W IVCON MRI BRAIN BRAIN STEM W/O W/CONTRAST MATERIAL Emily Sanders APRN.MESMERIST [address] [place] [address] [place] [address] Referral ID Status Reason Start Date Expiration Date V isits Requested Visits Authorized [id number] Closed Auto-Generate d Referral 11/14/2023 12/13/2024 1 1 [facility] Summary Purpose Family History No Family History Records Found Relationship Condition Age at Onset Recorded Date/T watson father History of stroke Unknown Heart disease Unknown Not Specified Malignant neoplasm Unknown Malignant neoplasm of breast Unknown sister Parkinson's disease Unknown Relationship Condition Age at Onset Recorded Date/T watson father History of stroke Unknown Heart disease Unknown mother Malignant neoplasm Unknown Malignant neoplasm of breast Unknown sister Parkinson's disease Unknown Relationship Description Onset Age of this Age Resolved Age Notes LastModified by Organization Details LastModified Time Father Heart disease [email or web address] Not available 04/16 10:28:26 Notes:*Relative: Sister*Prob tanya: 58 yrs, multiple systems atrophyRelative: 'Sister 1'; *Relative: Father*Problem: 70 yrs, Heart Disease, adrenal insufficiency *Relative: Brother*Problem: , suicideRelative: 'Brother 1'; *Relative: Mother*Problem: 79 yrs, breast cancer *Relative: Unspecified Relation *Problem: 3 daughters(s) - healthy Advance Directives No Advanced Directives Records FoundDocuments on File Type Date Recorded Patient Shingles Roofer Helper Expl anation Advance Directive(s) 10/01/2019 12:10 PM Advance Directive(s) 09/17/2019 1:41 PM Advance Directive Response Recorded Date/ Time Advance Directives No August 03 4:25pm Reason for Referral Specialty Diagnoses / Procedures Referred By Adam strong Referred To Contact MR IMAGING Diagnoses Benign neoplasm of brain, unspecified brain region (HCC) Procedures MRI BRAIN WO/W IVCON MRI BRAIN BRAIN STEM W/O W/CONTRAST MATERIAL Emily Sanders, MAYKEL.MESMERIST [address] [place] [id number] Mr Imaging Referral ID Status Reason Start Date Expiration Date Visits Requested Visits Authorized [id number] Pending Review Auto-Generat ed Referral 09/07/2021 10/07/2022 1 1 Specialty Diagnoses / Procedures Referred By Adam strong Referred To Contact MR IMAGING Diagnoses Benign neoplasm of meninges (HCC) Procedures MRI BRAIN WO/W IVCON MRI BRAIN BRAIN STEM W/O W/CONTRAST MATERIAL Emily Sanders, MAYKEL.MESMERIST [address] [place] [address] Mr [facility] [place] [address] Referral ID Status Reason Start Date Expiration Date Visits Requested Visits Authorized [id number] New Request Auto-Generat ed Referral 11/14/2023 12/13/2024 1 1 Chief Complaint and Reason for Visit Chief Complaint Screening Chief Complaint Admit Date Screening May 10, 2024 8 :34am Additional Source Comments INFORMATION SOURCE (unrecogn ized section and content) DATE CREATED AUTHOR 01/02/2021 [facility] DATE CREATED AUTHOR AUTHOR'S ORGANIZ ATION 02/26/2022 [facility] DATE CREATED AUTHOR AUTHOR'S ORGANIZ ATION 01/26/2024 [facility] DATE CREATED AUTHOR AUTHOR'S ORGANIZ ATION 02/29/2024 [facility] DATE CREATED AUTHOR AUTHOR'S ORGANIZ ATION 05/14/2024 [facility] DATE CREATED AUTHOR AUTHOR'S ORGANIZ ATION 12/26/2024 [facility] EPIC Source Comments (unrecognize d section and content) In the event this informatio n is protected by the Federal Confidentiality of Alcohol and Drug Abuse Patient Records regulations: The Federal rules restrict any use of the information to criminally investigate or prosecute any alcohol or drug abuse patient.[facility] the event this information is protected by the Federal Confidentiality of Alcohol and Drug Abuse Patient Records regulations: The Federal rules restrict any use of the information to criminally investigate or prosecute any alcohol or drug abuse patient.[facility] the event this information is protected by the Federal Confidentiality of Alcohol and Drug Abuse Patient Records regulations: The Federal rules restrict any use of the information to criminally investigate or prosecute any alcohol or drug abuse patient.[facility] the event this information is protected by the Federal Confidentiality of Alcohol and Drug Abuse Patient Records regulations: The Federal rules restrict any use of the information to criminally investigate or prosecute any alcohol or drug abuse patient.[facility] the event this information is protected by the Federal Confidentiality of Alcohol and Drug Abuse Patient Records regulations: The Federal rules restrict any use of the information to criminally investigate or prosecute any alcohol or drug abuse patient.[facility] the event this information is protected by the Federal Confidentiality of Alcohol and Drug Abuse Patient Records regulations: The Federal rules restrict any use of the information to criminally investigate or prosecute any alcohol or drug abuse patient.[facility] the event this information is protected by the Federal Confidentiality of Alcohol and Drug Abuse Patient Records regulations: The Federal rules restrict any use of the information to criminally investigate or prosecute any alcohol or drug abuse patient.[facility] Reason for Visit (unrecogniz ed section and content) Reason Comments Follow Up Reason Comments Radiology MRI Specialty Diagnoses / Procedures Referred By Contac t Referred To Contact MR IMAGING 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) Procedures MRI BRAIN WO/W IVCON MRI BRAIN COMBO Emily Sanders, CHEMICAL MACHINE TENDER.MESMERIST [address] [place] [address] Mr [facility] [place] [address] Referral ID Status Reason Start Date Expiration Date V isits Requested Visits Authorized [id number] Closed Auto-Generate d Referral 08/22/2021 10/21/2021 1 1 Specialty Diagnoses / Procedures Referred By Contac t Referred To Contact MR IMAGING Diagnoses Benign neoplasm of brain, unspecified brain region (HCC) Procedures MRI BRAIN WO/W IVCON MRI BRAIN COMBO Emily Sanders, CHEMICAL MACHINE TENDER.MESMERIST [address] [place] [id number] [facility] [place] [address] Referral ID Status Reason Start Date Expiration Date V isits Requested Visits Authorized [id number] Closed Auto-Generate d Referral 08/26/2020 04/29/2021 1 1 Specialty Diagnoses / Procedures Referred By Contac t Referred To Contact MR IMAGING Diagnoses Meningioma (HCC) Procedures MRI BRAIN WO/W IVCON MRI BRAIN COMBO Cheyenne Lo, CHEMICAL MACHINE TENDER.MESMERIST [address] [place] [id number] Mr [facility] [place] [address] Referral ID Status Reason Start Date Expiration Date V isits Requested Visits Authorized [id number] Closed Auto-Generate d Referral 03/11/2020 04/29/2020 1 1 Reason Comments Follow Up Reason Comments Cerumen Impaction Ear cleaning Reason Comments Plantar Warts Leonora Bryan 58yo Pat ient presents with Plantar wart. Patient noticed 6 months ago. Right foot, ball of foot. Left foot 2nd toe is ING, medial border, pain for at least 6-8 months. SS 10 Reason Comments Foot Pain Established pt prese nts today with BL foot pain, right foot is worse. Pt states she noticed it about 2-3 months ago, after working overtime at work for a few days in a row. Pain is aggravated with being on feet more. Pt takes motrin for pain. SS: 10.5 Reason Comments FUV Shital Bryan is a 58 y.o. female who presents for Foot Pain. Patient relates some improvement. SS: 10.5 Reason Comments Foot Callouses Pt presents today fo r painful IPK Rt foot, she states when her feet swell it makes that area swell and become more bothersome. She would like a refill of the Meloxicam due to her ankle ''freezing'' up on her from time to time. SS: 11 Care Teams (unrecognized sec tion and content) Phlebotomist Medical Lab Assistant Relationship Specialty Start Date End Date Dre Vogel Sr. [address] [place] [id number] PCP - General Family Practice 06/23/19 Team Status: Inactive Member Role Status Dates Dre Vogel DO Primary Care Provider, Referring Pr ovider Active Referral Self Attending Provider Active Team Status: Active Member Role Status Dates Dre Vogel DO Primary Care Provider Active Team Status: Inactive Member Role Status Dates Miladys Read APRN Attending Provider Active Start: June 08, 2023 End: June 08, 2023 Phlebotomist Medical Lab Assistant Relationship Specialty Start Date End Date Dre Vogel Sr., DO PCP - General Family Medicine 06/23/19 Phlebotomist Medical Lab Assistant Relationship Specialty Start Date End Date Dre Vogel Sr., DO PCP - General Family Medicine 06/23/19 Phlebotomist Medical Lab Assistant Relationship Specialty Start Date End Date Dre Vogel Sr., DO PCP - General Family Medicine 06/23/19 Phlebotomist Medical Lab Assistant Relationship Specialty Start Date End Date Dre Vogel Sr., DO PCP - General Family Medicine 06/23/19 Phlebotomist Medical Lab Assistant Relationship Specialty Start Date End Date Dre Vogel Sr., DO PCP - General Family Medicine 06/23/19 Phlebotomist Medical Lab Assistant Relationship Specialty Start Date End Date Huong Elizabeth MD [address] [place] [address] PCP - General Family Medicine 03/07/24 Phlebotomist Medical Lab Assistant Relationship Specialty Start Date End Date Huong Elizabeth MD [address] [place] [address] PCP - General Family Medicine 03/07/24 Phlebotomist Medical Lab Assistant Relationship Specialty Start Date End Date Huong Elizabeth MD [address] [place] [address] PCP - General Family Medicine 03/07/24 Phlebotomist Medical Lab Assistant Relationship Specialty Start Date End Date Huong Elizabeth MD [address] [place] [address] PCP - General Family Medicine 03/07/24 Team Status: Active Member Role Status Dates Huong Elizabeth MD Primary Care Provider Active Team Status: Inactive Member Role Status Dates Referral Self Attending Provider Active Start: Jude [email or web address] End: May 10, 2024 Huong Elizabeth MD Primary Care Provide r, Referring Provider Active Start: May 10, 2024 End: May 10, 2024 Phlebotomist Medical Lab Assistant Relationship Specialty Start Date End Date Huong Elizabeth MD [address] [place] [address] PCP - General Family Medicine 03/07/24 Phlebotomist Medical Lab Assistant Relationship Specialty Start Date End Date Huong Elizabeth MD [address] [place], [place] [id number] PCP - General Family Medicine 03/07/24 Phlebotomist Medical Lab Assistant Relationship Specialty Start Date End Date Huong Elizabeth MD [address] [place] [address] PCP - General Family Medicine 03/07/24 Phlebotomist Medical Lab Assistant Relationship Specialty Start Date End Date Huong Elizaebth MD [address] [place], [place] [id number] PCP - General Family Medicine 03/07/24 Phlebotomist Medical Lab Assistant Relationship Specialty Start Date End Date Huong Elizabeth MD [address] [place] [place] [address] PCP - General Family Medicine 03/07/24 Goals (unrecognized section and content) Goals may be documented in a n alternate sectionGoals may be documented in an alternate sectionNo InformationNo InformationGoals may be documented in an alternate sectionNone RecordedNone Recorded FOR RECORDS PERTAINING TO PATIENTS WHO ARE [...] BE BASED ON THE PRIMARY CLINICAL RECORDS. [employer] [facility]. provides no warranty or guarantee of the accuracy or completeness of information in this document.
--- NOTE | 2025-01-14 09:00 | CA_ITS ---
Patient Name: AMERICA PIKE MR#: [id number] : 1965 Exam Date: 01/14/2025 Ordering Doctor: DR REGINALDO THRASHER M.D. ECHOCARDIOGRAM REPORT PROCEDURE: CA ECHO DOPPLER COMPLETE INDICATIONS: Murmur, CAD COMPARISON: None. DESCRIPTION: COMPLETE ECHOCARDIOGRAM Real-time transthoracic echocardiography with 2D, M-mode, spectral and color flow Doppler performed. QUALITY: Technical quality was good. LEFT VENTRICLE: Normal chamber size. Mild concentric left ventricular hypertrophy. LV EF: Global left ventricular systolic function is normal; visually estimated ejection fraction is 55 to 60%. No significant wall motion abnormalities. DIASTOLIC: Normal diastolic function. ATRIAL SEPTUM: Visually appears intact. LEFT ATRIUM: Normal chamber size. RIGHT ATRIUM: Mild dilatation. RIGHT VENTRICLE: Normal chamber size. Normal right ventricular systolic function. TRICUSPID VALVE: Normal mobility and thickness. No stenosis with mild regurgitation. No evidence of pulmonary hypertension. RVSP 21 mmHg MITRAL VALVE: Normal mobility and thickness. No evidence of mitral valve stenosis. There is no mitral annular calcification. Mild mitral regurgitation. AORTIC VALVE: Normal trileaflet appearance. No visible sclerosis. Normal leaflet mobility. No evidence of aortic valve stenosis. No aortic regurgitation. AORTIC ROOT: Normal diameter and appearance. Ascending aorta is normal in size. PULMONIC VALVE: Not well visualized. No stenosis. No regurgitation. PERICARDIUM: No evidence of pericardial effusion. IVC: Collapses with inspiration. CONCLUSION: 1. Global left ventricular systolic function is normal; visually estimated ejection fraction is 55 to 60% 2. Normal right ventricular size and systolic function 3. Normal diastolic function 4. The left atrium is normal in size 5. The right atrium is mildly dilated 6. Mild mitral regurgitation 7. Mild tricuspid regurgitation Adult Echocardiography Procedure Report Left Ventricle LVEDD (3.7 - 5.6 cm): 3.95 cm LVESD (2.2 - 4.0 cm): 3.18 cm LVIVS thickness (0.6 - 1.2 cm): 1.15 cm LVPW thickness (0.5 - 1.0 cm): 1.23 cm e': 0.10 m/s E - e': 4.68 LVOT Max Gradient: 3.16 mm[Hg] LVOT Area (cm2): 0.89 m/s Peak Velocity (LVOT): 0.89 m/s Mean Velocity (LVOT): 0.56 m/s LVOT Diameter 2.02 cm Left Ventricular Ejection Fraction: 62.74 % Left Atrium LA Volume Index (2D A2C): 27.37 ml/m2 Left Atrium Systolic Dimension: 3.30 cm Mitral Valve MV E to A Ratio: 0.71 Mitral Valve A-Wave Peak Velocity: 0.68 m/s Mitral Valve E-Wave Peak Velocity: 0.48 m/s Right Ventricle Aorta AO Root Diam: 3.18 cm Ascending Ao Diam: 2.45 cm Aortic Valve AoV Area (Peak Maico): 2.93 cm2, 2.93 cm2 AoV Area (VTI): 3.15 cm2, 3.15 cm2 Peak Velocity(Antegrade Flow): 0.97 m/s Peak Gradient(Antegrade Flow): 3.78 mm[Hg] Mean Velocity(Antegrade Flow): 0.61 m/s Mean Gradient(Antegrade Flow): 1.74 mm[Hg] Velocity Time Integral: 18.65 cm Tricuspid Valve Peak Velocity (Regurgitant Flow): 2.03 m/s, 1.85 m/s, 2.12 m/s, 2.10 m/s Pulmonic Valve Peak Gradient: 2.49 mm[Hg], 1.90 mm[Hg] Right Atrium Right Atrium Systolic Pressure: 70.33 ml, 70.33 ml Dictated by: Jose Cruz Sim M.D. on 01/14/2025 at 12:44 Approved by: Jose Cruz Sim M.D. on 01/14/2025 at 13:01
== END 2025-01-14 08:34 | disposition home or self-care (01) ==
LOC: CARD 08:33
PROVIDERS: Visit Provider Internal Medicine Interventional Cardiology
DX: I25.10 Atherosclerotic heart disease of native coronary artery without angina pectoris (principal); R01.1 Cardiac murmur, unspecified; I08.1 Rheumatic disorders of both mitral and tricuspid valves
CPT/HCPCS: 93306